=== PATIENT | female | born 1945 | race Caucasian/White ===

== ENCOUNTER 2021-12-29 12:50 | Emergency (ER) | payer OTHER ==
--- OUTSIDE RECORDS SUMMARY | 2021-12-29 12:53 | XMS REPORT | Continuity of Care Document ---
:1945 Author Organization [facility] t Address [address] [place] [address] Care Team Providers Name Role Phone ABDIAZIZ MONROE Primary Care Physician Unavailable SONAM LIGHT Attending Clinician Unavailable SONAM LIGHT Admitting Clinician Unavailable Payers Payer Name Policy Type Policy Number Effective Date Expiration Date S jt [employer] HMO [id number] 2018 POS PPO 00:00:00 Problems This patient has no known problems. Allergies, Adverse Reactions, Alerts Allergy Allergy Status Severity Reaction(s) Onset Inactive Treating Comm ents Source Name Type Date Date Clinician LACTOSE Allergy Active Med Diarrhea 2019-0 [facility] 6-25 00:00: 00 IODINE Allergy Active Med Hives 2019-0 [facility] AND 620 IODIDE 00:00: CONTAINI 00 NG PRODUCTS PENICILL Allergy Active Med Other 2018-0 [facility] INS 6-20 00:00: 00 Medications This patient has no known medications. Procedures This patient has no known procedures. Encounters Start End Encounter Admission Attending Care Care Encounter Source Date/Time Date/Time Type Type Clinicians Facility Department ID 2019-09-05 2019-09-05 Outpatient [facility] [id number] SLE 00:00:00 00:00:00 JOSE Results Test Description Test Time Test Comments Results Result [facility] e Comments MR, ABDOMEN, WITH 2019-09-12 FINAL REPORT PATIENT 18:04:00 ID: [id number] MRI of the abdomen dated September 12, 2019 COMPARISON: January 13, 2019 Comment: Multiplanar T1 and T2-weighted images of the abdomen, postcontrast axial and coronal T1-weighted images of the abdomen were obtained. Liver and spleen are normal in size. No suspicious mass or abnormal enhancement is seen in the liver. A 4 mm cyst is seen in the spleen. 4 mm calcified granuloma is also seen in the spleen. Pancreas is normal in caliber. No enhancing mass is seen in the pancreas. Several cystic lesions as seen throughout the pancreas are stable as compared to the prior study. The largest one measures approximately 1.0 x 1.3 cm in the head/uncinate process of the pancreas. No pancreatic dilatation is noted. Gallbladder is noted visualized. No biliary dilatation is seen. The adrenals and kidneys are unremarkable. A 1.3 cm cyst is seen in the upper pole left kidney. No hydronephrosis is present. No adenopathy or ascites is seen in the abdomen. The visualized small and large bowel are unremarkable. IMPRESSION:1. Stable cystic lesions in the pancreas is suggestive of IPMN.2. Left renal cyst.3. Status post cholecystectomy without biliary dilatation. Signed: Kiran Davidson MDReport Verified Date/Time: 09/12/2019 18:04:45 Reading Location: [address] Body Reading Room -CREATININE 2019-09-12 12:27:00 Test Item Value Reference Range Interpretation Comme [facility] POC-CREATININE (BEAKER) (test 0.8 mg/dL 0.6-1.3 TESTED AT [facility] 6720 code = 1859) [facility] [address] POC-EGFR (BEAKER) (test code = 70 mL/min/1.73M2 1860) TISSUE [id number] 18:27:00Surgical Pathology Report Case: [id number] Authorizing Provider: Jose Light MD Collected: 01/17/2019 1219 Ordering Location: [facility] PERIOPERATIVE Received: 01/17/2019 1329 SERVICES Pathologist: Megan Aguillon MD Specimen: Gallbladder GALLBLADDER, CHOLECYSTECTOMY: - FOCAL INTESTINAL METAPLASIA - CHRONIC CHOLECYSTITIS WITH CHOLELITHIASIS - ONE SUKH IGN REACTIVE LYMPH NODE Signing Pathologist Direct Phone Line: [phone] signed by Megan Aguillon MD on 01/19/2019 at 6:27 [id number] of bile duct without cholangitis or biliary obstruction Gallbladder The specimen consists of an intact gallbladder in a plastic bag in formalinmeasuring 4.5 cm in length with a maximum diameter of 2.5 cm. The specimen oozes a paeiz-gqham-zhaeob bile of normal viscosity on compression. The serosal aspect is smooth and glistening without adhesions. Small calculi are palpated across the wall of the gallbladder. The gallbladder is opened to reveal a thickness of approximately 2 mm. The mucosa is hassan-pink in color without cholesterolosis or other mass lesion. There is a single very dark-green stone, which had been broken in half, which originally measured 1.0 cm in diameter. Sections of the cystic duct margin are submitted in A1, and portions of the fundus wall is A2. TMW/ewPerformed.MR, ABDOMEN, [id number] 16:32:00FINAL REPORT INDICATION:Pancreas mass. COMPARISON: None. TECHNIQUE: MR of theAbdomen WITHOUT and WITH intravenous contrast.MRCP also performed including 3-D reconstructions. FINDINGS:In the head of the pancreas there is a 13 x 10 mm cyst and there is suggestion that is in communication with a minor pancreatic duct that joins the common bile duct draining into the ampulla. The main pancreatic duct drains more proximally into the duodenum. This is pancreatic divisum anatomy. Main pancreatic duct is normal in caliber. There are two 4 mm cysts adjacent to the main pancreatic duct. No solid pancreatic mass. No pancreatic atrophy. There is tumefactive sludge or two small stones de pendent in the gallbladder. There is no biliary ductal dilatation. There is fluid in the C curve of the duodenum and no duodenal or ampullary abnormality is demonstrated. Liver is normal in contour, signal, and size. No liver mass. Hepatic vasculature is patent. Spleen, adrenal glands, and kidneys are unremarkable. IMPRESSION:No pancreatic solid mass. There are pancreatic cysts, the largest in the head of the pancreas measuring 13 x 10 mm and likely arising from a minor pancreatic duct (side branch intraductal papillary mucinous neoplasm). Because these have malignant potential, follow-up MR abdomen without and with intravenous contrast in 6-12 months is recommended. Signed: Alvaro Perryeport Verified Date/Time: 01/13/2019 16:32:06 Reading Location: [facility] Diagnostic Imaging Reading Room -[place] [address] [id number] 13:49:00 Test Item Value Reference Range Interpretation Comments SODIUM (BEAKER) (test code = 381) 134 meq/L 136-145 L POTASSIUM (BEAKER) (test code = 4.2 meq/L 3.5-5.1 379) CHLORIDE (BEAKER) (test code = 382) 102 meq/L 98-107 CO2 (BEAKER) (test code = 355) 26 meq/L 22-29 [id number] 13:49:00 Test Item Value Reference Range Interpretation Comments GLUCOSE RANDOM (BEAKER) (test code = 79 mg/dL 70-105 652) BUN AND [id number] 13:49:00 Test Item Value Reference Range Interpretation Comments BLOOD UREA NITROGEN 9 mg/dL 7-21 (BEAKER) (test code = 354) CREATININE (BEAKER) 0.79 mg/dL 0.57-1.25 (test code = 358) EGFR (BEAKER) (test 71 mL/min/1.73 ESTIMA AZAR GFR IS code = 1092) sq m NOT ACCURATE CREATININE CLEARANCE IN PREDICTING GLOMERULAR FILTRATION RATE . ESTIMATED GFR I S NOT APPLICABLE FOR DIALYSIS PATIEN TS. [id number] 13:21:00 Test Item Value Reference Range Interpretation Comments HEMOGLOBIN (BEAKER) (test code = 12.8 GM/DL 11.2-15.7 410) [id number] 10:48:00 Test Item Value Reference Range Interpretation Comments POC-CREATININE 0.8 mg/dL 0.6-1.3 TESTED AT [facility] MC-KG (BEAKER) (test 0057 [facility] code = 1859) [facility] 7[address] POC-EGFR 70 mL/min/1.73M2 (BEAKER) (test code = 1860)
--- NOTE | 2021-12-29 13:50 | RAD REPORT ---
EXAM DESCRIPTION: RAD - Chest Single View - 12/29/2021 1:40 pm CLINICAL HISTORY: COPD COMPARISON: Two view chest 02/25/2021 TECHNIQUE: AP portable chest image was obtained 12/29/2021 1:40 pm . FINDINGS: Lungs are extensively fibrotic with the pattern not clearly different from comparison. A f ew scattered calcified granulomas are seen. No peripheral consolidation or mass. Superimposed interst itial edema is not suspected the compared to the prior study. Heart and vasculature are normal. No measurable pleural effusion and no pneumothorax. No acute bony abnormality seen. No acute aortic findings suspected. IMPRESSION: COPD pattern accentuated by shallow inspiration. Acute chest finding is not suspected.
[2021-12-29 13:57] LABS: Absolute Lymphocytes (CBC) 1.5 K/uL (0.7-4.9); Hematocrit 36.7 % (36.0-45.0); Lymphocytes % 15.3 % (15.3-44.8); MPV 6.5 fL (7.6-11.3); RBC Red Blood Cell Count 4.15 M/uL (3.86-4.86)
[2021-12-29] MEDS ORDERED: METHYLPREDNISOLONE 125 MG INJ ONE (13:57)
[2021-12-29] MEDS ORDERED: ALBUTEROL 2.5 MG/3 ML NEB SOL ONE (13:57)
[2021-12-29] MEDS ORDERED: IPRATROPIUM BROM 0.5MG/2.5ML ONE (13:58)
[2021-12-29 14:19] LABS: Albumin 2.8 g/dL (3.4-5.0); Bilirubin Total 0.3 mg/dL (0.2-1.0); Potassium 3.9 mmol/L (3.5-5.1); Protein, Total 7.2 g/dL (6.4-8.2); Troponin High Sensitivity 20.6 pg/mL (<58.9)
--- NOTE | 2021-12-29 15:51 | EDPHYS ---
Physician Documentation [facility] Name: Ada Ford Age: 76 yrs Sex: Female : 1945 Arrival Date: 12/29/2021 Time: 12:53 Bed 15 Private MD: ED Physician Juan Jose Rodriguez HPI: 12/29 13:20 This 76 yrs old Female presents to ER via Ambulatory with complaints of sent by dr for en chest xray. 13:20 76-year-old female with history of COPD not on home O2 presents to ED with 1.5 weeks of en worsening shortness of breath with dyspnea exertion. Patient was seen by PCP last week and started on Z-Dilan. She is on day 4 without improvement. She reports increased work of breathing with worsening wheezing and shortness of breath. No fevers, chills. Chronic cough has worsened. She has intermittent sharp stabbing right-sided chest pain radiating to her back without aggravators or relievers. No peripheral edema, orthopnea, palpitations no nausea, vomiting, diarrhea. Historical: - Allergies: 13:11 PENICILLINS; ww - PMHx: 13:11 Hypercholesterolemia; ww 13:14 Chronic obstructive lung disease; ww - PSHx: 13:11 Total abdominal hysterectomy; ww - Immunization history:: Adult Immunizations up to date. - Social history:: Smoking status: Patient reports the use of cigarette tobacco products, smokes one pack cigarettes per day. ROS: 13:20 Constitutional: Negative for fever, chills, and weight loss. en 13:20 Cardiovascular: Positive for Intermittent right-sided stabbing chest pain. 13:20 Respiratory: Positive for Worsening wet cough with yellow sputum, increased wheezing, shortness of breath, dyspnea exertion. 13:20 Abdomen/GI: Negative for abdominal pain, nausea and vomiting. 13:20 Back: Negative for injury or acute deformity, decreased range of motion. 13:20 : Negative for urinary symptoms. 13:20 MS/extremity: Negative for swelling. 13:20 Neuro: Negative for dizziness, numbness, weakness. Exam: 13:20 Constitutional: Elderly appearing female in moderate respiratory distress, cooperative en 13:20 Constitutional: The patient appears alert, awake. 13:20 Eyes: Pupils: equal, round, and reactive to light and accomodation, Extraocular movements: intact throughout, Conjunctiva: normal, no exudate, no injection. 13:20 ENT: Mouth: Oral mucosa: pink and intact, moist, Posterior pharynx: Airway patent. 13:20 Cardiovascular: Rate: normal, Rhythm: regular, Pulses: no pulse deficits are appreciated, Heart sounds: normal, no murmur, no rub, no gallop. 13:20 Respiratory: moderate respiratory distress is noted, Moderate risk. Stress is work of breathing with exertion shallow breaths with accessory muscle use and short of breath with sentences. Poor air movement without rhonchi rales or wheezes. Respiratory rate at 22, increases with exertion. No hypoxia. 13:20 Abdomen/GI: Inspection: abdomen appears normal, Bowel sounds: normal, in all quadrants, Palpation: abdomen is soft and non-tender, in all quadrants. 13:20 Back: CVA tenderness, is absent. 13:20 Musculoskeletal/extremity: ROM: intact in all extremities, full active range of motion. 13:20 Skin: no rash present. 13:20 Neuro: Orientation: appropriate for stated age, no acute changes, to person, place \\T\\ time. 13:20 Psych: Behavior/mood is pleasant, cooperative, Affect is calm. Vital Signs: 13:09 BP 130 / 63; Pulse 86; Resp 22; Temp 98.1; Pulse Ox 95% ; Weight 52.62 kg; Height 5 ft. ww 4 in. (162.56 cm); Pain 0/10; 14:25 BP 139 / 96; Pulse 94; Resp 17; Pulse Ox 98% on R/A; tw2 15:29 BP 98 / 46; Pulse 102; Resp 20; Pulse Ox 97% on 2 lpm NC; tw2 13:09 Body Mass Index 19.91 (52.62 kg, 162.56 cm) ww MDM: 13:20 Differential diagnosis: viral Infection, bacterial infection, URI, bronchitis, en pneumonia COPD exacerbation, CHF. Data reviewed: vital signs, nurses notes, old medical records, and as a result, I will Will check imaging and labs. Will give duo nebs and Solu-Medrol for COPD exacerbation.. 14:26 ED course: Patient reports feeling a little bit better. No significant improvement in en air movement. No rhonchi rales or wheezes. Breathing treatment ongoing. Will reevaluate.. 14:37 Patient medically screened. en 15:22 ED course: Lungs much improved with good air. Mild faint end expiratory wheezes with en prolonged expiratory phase. Pulse ox 98% on 2 L nasal cannula. Anticipate DC home with nebulizer albuterol and steroids for COPD exacerbation. Pending COVID test.. 15:44 ED course: Pt feels better. Lungs Clear. COVID negative. Patient with an elevated BNP, en but no clinical exam findings consistent with volume overload and chest x-ray without evidence of pulmonary edema or pleural effusions. Patient is not in CHF. Will d/c home with Nebulizer machine, albuterol nebs q4h, and prednisone. ER return precautions reviewed. 12/29 13:20 Order name: CBC with Diff; Complete Time: 14:01 en 12/29 13:20 Order name: CMP; Complete Time: 14:25 en 12/29 13:20 Order name: Troponin High Sensitivity; Complete Time: 14:25 en 12/29 13:20 Order name: CXR XRAY; Complete Time: 14:01 en 12/29 13:20 Order name: COVID-19 SARS RT PCR (Document "Date of Onset" if Symptomatic); Complete en Time: 15:44 12/29 13:20 Order name: BNP; Complete Time: 14:25 en 12/29 13:20 Order name: Saline Lock; Complete Time: 13:43 en Administered Medications: 13:57 Drug: Albuterol - atroVENT (ipratropium) (3:1) (2.5 mg - 0.5 mg) 6 ml Route: Nebulizer; tw2 15:01 Follow up: Response: No adverse reaction tw2 13:57 Drug: SOLU-Medrol (methylPrednisoLONE) 125 mg Route: IVP; Site: right forearm; tw2 15:01 Follow up: Response: No adverse reaction tw2 15:22 CANCELLED (change dosee): Albuterol 2.5 mg Inhalation every 20 minutes x3 en 15:28 Not Given (Physician Discretion; provider diss): Albuterol 2.5 mg Inhalation once tw2 Disposition: 17:41 Co-signature as Attending Physician, Juan Jose Rodriguez MD. rn Disposition Summary: 12/29/21 15:50 Discharge Ordered Location: Home en Problem: an acute exacerbation en Symptoms: have improved en Condition: Stable en Diagnosis - COPD/ Chronic obstructive pulmonary disease with (acute) exacerbation en Followup: en - With: Justice Adame MD - When: 1 - 2 days - Reason: Worsening of condition Discharge Instructions: - Discharge Summary Sheet en - Chronic Bronchitis, Adult en - How to Use a Nebulizer, Adult en Forms: - Medication Reconciliation Form en - Thank You Letter en - Antibiotic Education en - Prescription Opioid Use en Prescriptions: - Albuterol Sulfate 2.5 mg /3 mL (0.083 %) Inhalation Solution for Nebulization - inhale 1 unit by NEBULIZATION route every 8 hours As needed; 1 box; Refills: 0, en Product Selection Permitted - Prednisone 20 mg Oral Tablet - take 2 tablets by ORAL route once daily for 5 days; 10 tablet; Refills: 0, en Product Selection Permitted Signatures: Dispatcher [employer] EDMS Juan Jose Rodriguez MD MD rn Laverne Helton RN RN tw2 Ivette Milner RN RN Yahaira White PA PA en Corrections: (The following items were deleted from the chart) 15:22 15:22 Albuterol 2.5 mg Inhalation every 20 minutes x3 ordered. en en 16:05 15:44 ED course: Pt feels better. Lungs Clear. COVID negative. Will d/c home with en Nebulizer machine, albuterol nebs q4h, and prednisone. ER return precautions reviewed. en
--- NOTE | 2021-12-29 15:51 | ER ---
Nurse's Notes [facility] Name: Ada Ford Age: 76 yrs Sex: Female : 1945 Arrival Date: 12/29/2021 Time: 12:53 Bed 15 Private MD: Diagnosis: COPD/ Chronic obstructive pulmonary disease with (acute) exacerbation Presentation: 12/29 13:09 Chief complaint:. Chief complaint: Patient states: Been sick for 1 week and treated ww with a z-filemon and not getting better. Complaining of shortness of breath and sharp pain in her right side of chest that radiates to the back. She has been tested 4 times for COVID this week and all negative. Dr. Adame recommended patient come to the emergency room for further evaluation. Patients son states that her pulse ox has been running around 91% at home. Coronavirus screen: Client denies travel out of the [place] in the last 14 days. Ebola Screen: Patient denies travel to an Ebola-affected area in the 21 days before illness onset. Initial Sepsis Screen: Does the patient meet any 2 criteria? No. Patient's initial sepsis screen is negative. Does the patient have a suspected source of infection? No. Patient's initial sepsis screen is negative. Risk Assessment: Do you want to hurt yourself or someone else? Patient reports no desire to harm self or others. Onset of symptoms is unknown. 13:09 Method Of Arrival: Ambulatory ww 13:09 Acuity: ABHISHEK 3 ww Triage Assessment: 13:11 General: Appears uncomfortable, Behavior is cooperative. Pain: Complains of pain in ww chest. Neuro: Level of Consciousness is awake, alert, obeys commands, Oriented to person, place, time, situation. Cardiovascular: Patient's skin is warm and dry. Respiratory: Airway is patent Respiratory effort is labored. Historical: - Allergies: 13:11 PENICILLINS; ww - PMHx: 13:11 Hypercholesterolemia; ww 13:14 Chronic obstructive lung disease; ww - PSHx: 13:11 Total abdominal hysterectomy; ww - Immunization history:: Adult Immunizations up to date. - Social history:: Smoking status: Patient reports the use of cigarette tobacco products, smokes one pack cigarettes per day. Screenin:13 Abuse screen: Denies threats or abuse. Denies injuries from another. Nutritional ww screening: No deficits noted. Tuberculosis screening: No symptoms or risk factors identified. Fall Risk None identified. Assessment: 14:25 Reassessment: Patient appears in no apparent distress at this time. Patient and/or tw2 family updated on plan of care and expected duration. Pain level reassessed. 15:30 Reassessment: Patient appears in no apparent distress at this time. Patient and/or tw2 family updated on plan of care and expected duration. Pain level reassessed. Patient states symptoms have improved. 16:11 Reassessment: Patient appears in no apparent distress at this time. Patient and/or tw2 family updated on plan of care and expected duration. Pain level reassessed. Patient states feeling better. Vital Signs: 13:09 BP 130 / 63; Pulse 86; Resp 22; Temp 98.1; Pulse Ox 95% ; Weight 52.62 kg; Height 5 ft. ww 4 in. (162.56 cm); Pain 0/10; 14:25 BP 139 / 96; Pulse 94; Resp 17; Pulse Ox 98% on R/A; tw2 15:29 BP 98 / 46; Pulse 102; Resp 20; Pulse Ox 97% on 2 lpm NC; tw2 13:09 Body Mass Index 19.91 (52.62 kg, 162.56 cm) ww ED Course: 12:53 Patient arrived in ED. as 13:11 Triage completed. ww 13:11 Arm band placed on. ww 13:16 Bed in low position. Call light in reach. Pulse ox on. NIBP on. tw2 13:18 Yahaira Abdi PA is PHCP. en 13:18 Juan Jose Rodriguez MD is Attending Physician. en 13:25 Laverne Helton RN is Primary Nurse. tw2 13:42 CXR XRAY In Process Unspecified. EDMS 13:43 COVID-19 SARS RT PCR (Document "Date of Onset" if Symptomatic) Sent. ld1 13:44 Inserted saline lock: 20 gauge in right wrist, using aseptic technique. ld1 15:49 Justice Adame MD is Referral Physician. en 16:10 No provider procedures requiring assistance completed. IV discontinued, intact, tw2 bleeding controlled, No redness/swelling at site. Pressure dressing applied. Administered Medications: 13:57 Drug: Albuterol - atroVENT (ipratropium) (3:1) (2.5 mg - 0.5 mg) 6 ml Route: Nebulizer; tw2 15:01 Follow up: Response: No adverse reaction tw2 13:57 Drug: SOLU-Medrol (methylPrednisoLONE) 125 mg Route: IVP; Site: right forearm; tw2 15:01 Follow up: Response: No adverse reaction tw2 15:22 CANCELLED (change dosee): Albuterol 2.5 mg Inhalation every 20 minutes x3 en 15:28 Not Given (Physician Discretion; provider diss): Albuterol 2.5 mg Inhalation once tw2 Medication: 14:35 VIS not applicable for this client. tw2 Outcome: 15:50 Discharge ordered by MD. en 16:10 Discharged to home via wheelchair, with family. tw2 16:10 Condition: stable 16:10 Discharge instructions given to patient, family, Instructed on discharge instructions, follow up and referral plans. medication usage, Demonstrated understanding of instructions, follow-up care, medications, Prescriptions given X 3. 16:11 Patient left the ED. tw2 Signatures: Dispatcher [employer] EDMS Jaclyn Evans Tara RN RN tw2 Ary León RN RN ld1 Ivette Milner RN RN ww Yahaira Abdi PA PA en Corrections: (The following items were deleted from the chart) 13:15 13:09 Chief complaint: Patient states: Been sick for 1 week and treated with a z-filemon ww and not getting better. She has been tested 4 times for COVID this week and all negative. Dr. Adame recommended patient come to the emergency room for further evaluation. Patients son states that her pulse ox has been running around 91% at home. ww
[2021-12-29 16:45] VITALS: TEMP 98.1
[2021-12-29 16:48] VITALS: BP 98/46; O2SAT 97
== END 2021-12-29 16:11 | disposition home or self-care (01) ==
LOC: ER 12:50
DX: J44.1 Chronic obstructive pulmonary disease with (acute) exacerbation (principal); Z20.822 Contact with and (suspected) exposure to COVID-19; F17.210 Nicotine dependence, cigarettes, uncomplicated; Z88.0 Allergy status to penicillin
CPT/HCPCS: 85025; 36415; 84484; 80053; 83880; 71045; 94640; 96374; 99284; U0003; J2930

== ENCOUNTER 2022-02-24 12:29 | Inpatient (IN) | payer OTHER ==
--- OUTSIDE RECORDS SUMMARY | 2022-02-24 12:31 | XMS REPORT | Continuity of Care Document ---
:1945 Author Organization [facility] t Address [address] [place] [address] Care Team Providers Name Role Phone MYNOR MONROE Primary Care Physician Unavailable FORTINO LIGHT Attending Clinician Unavailable FORTINO LIGHT Admitting Clinician Unavailable Payers Payer Name Policy Type Policy Number Effective Date Expiration Date S jt [employer] MEDICARE HMO [id number] 2018 POS PPO 00:00:00 Problems This patient has no known problems. Allergies, Adverse Reactions, Alerts Allergy Allergy Status Severity Reaction(s) Onset Inactive Treating Comm ents Source Name Type Date Date Clinician LACTOSE Allergy Active Med Di[facility] 2019-[address] [facility] IODINE Allergy Active Med Hives 2019-[address] [facility] 00 [facility] NG PRODUCTS PENICILL Allergy Active Med Other 2019-[address] [facility] Medications This patient has no known medications. Procedures This patient has no known procedures. Encounters Start End Encounter Admission Attending Care Care Encounter Source Date/Time Date/Time Type Type Clinicians Facility Department ID 2019-09-05 2019-09-05 [facility] [id number] [facility] 00:00:00 00:00:00 FORTINO Results Test Description Test Time Test Comments Results Result [facility] e Comments MR, ABDOMEN, WITH 2019-09-12 FINAL REPORT PATIENT 18:04:00 ID: [id number] MRI of the abdomen dated September 12, [...] MDReport Verified Date/Time: 09/12/2019 18:04:45 Reading Location: [facility] Body Reading Room -CREATININE 2019-09-12 12:27:00 Test Item Value Reference Range Interpretation Comme [facility] POC-CREATININE (BEAKER) (test 0.8 mg/dL 0.6-1.3 TESTED AT [facility] 6720 code = 1859) [facility] [address] POC-EGFR (BEAKER) (test code = 70 mL/min/1.73M2 1860) TISSUE [id number] 18:27:00Surgical Pathology Report Case: [id number] Authorizing Provider: Fortino Light MD Collected: 01/17/2019 1219 Ordering Location: [facility] PERIOPERATIVE Received: 01/17/2019 1329 SERVICES Pathologist: Megan Aguillon MD Specimen: Gallbladder GALLBLADDER, CHOLECYSTECTOMY: - FOCAL INTESTINAL METAPLASIA- CHRONIC CHOLECYSTITIS WITH CHOLELITHIASIS - ONE BENIGN REACTIVE LYMPH NODE Signing Pathologist Direct Phone Line: [phone] signed by Megan Aguillon MD on 01/19/2019 at 6:27 [id number] of bile duct without cholangitis or biliary obstruction Gallbladder The specimen consists of an intact gallbladder in a plastic bag in formalin measuring 4.5 cm in length with a maximum diameter of2.5 cm. The specimen oozes a dwscz-lerzi-mawylc bile of normal viscosity on compression. The serosalaspect is smooth and glistening without adhesions. Small calculi are palpated across the wall of thegallbladder. The gallbladder is opened to reveal a thickness of approximately 2 mm. The mucosa is hassan-pink in color without cholesterolosis or other mass lesion. There is a single very dark-green stone, which had been broken in half, which originally measured 1.0 cm in diameter. Sections of the cysticduct margin are submitted in A1, and portions of the fundus wall is A2. TMW/ewPerformed.MR, ABDOMEN, [id number] 16:32:00FINAL REPORT INDICATION:Pancreas mass. COMPARISON: None. TECHNIQUE: MR of the Abdomen WITHOUT and WITH intravenous contrast.MRCP also performed including 3-D reconstructions. FINDINGS:In the head of the pancreas there is a 13 x 10 mm cyst and there is suggestion that is in communication with a minor pancreatic duct that joins the common bile duct draining into the ampulla. The main pancreatic duct drains more proximally into the duodenum. This is pancreatic divisum anatomy. Mainpancreatic duct is normal in caliber. There are two 4 mm cysts adjacent to the main pancreatic duct.No solid pancreatic mass. No pancreatic atrophy. There is tumefactive sludge or two small stones dependent in the gallbladder. There is no biliary ductal dilatation. There is fluid in the C curve of the duodenum and no duodenal or ampullary abnormality is demonstrated. Liver is normal in contour, signal, and size. No liver mass. Hepatic vasculature is patent. Spleen, adrenal glands, and kidneys are un remarkable. IMPRESSION:No pancreatic solid mass. There are pancreatic cysts, the largest in the headof the pancreas measuring 13 x 10 mm and likely arising from a minor pancreatic duct (side branch intraductal papillary mucinous neoplasm). Because these have malignant potential, follow-up MR abdomen without and with intravenous contrast in 6-12 months is recommended. Signed: Bonnie Perry MDReport Verified Date/Time: 01/13/2019 16:32:06 Reading Location: [facility] Diagnostic Imaging Reading Room - [place] [address] 1120 [id number] 13:49:00 Test Item Value Reference Range Interpretation Comments SODIUM (BEAKER) (test code = 381) 134 meq/L 136-145 L POTASSIUM (BEAKER) (test code = 4.2 meq/L 3.5-5.1 379) CHLORIDE (BEAKER) (test code = 382) 102 meq/L 98-107 CO2 (BEAKER) (test code = 355) 26 meq/L 22-29 [id number] 13:49:00 Test Item Value Reference Range Interpretation Comments GLUCOSE RANDOM (BEAKER) (test code = 79 mg/dL 70-105 652) BUN AND [id number] 13:49:00 Test Item Value Reference Range Interpretation Comments BLOOD UREA NITROGEN 9 mg/dL - (BEAKER) (test code = 354) CREATININE (BEAKER) 0.79 mg/dL 0.57-1.25 (test code = 358) EGFR (BEAKER) (test 71 mL/min/1.73 ESTIMA AZAR GFR IS code = 1092) sq m NOT ACCURATE CREATININE CLEARANCE IN PREDICTING GLOMERULAR FILTRATION RATE . ESTIMATED GFR I S NOT APPLICABLE FOR DIALYSIS PATIEN TS. [id number] 13:21:00 Test Item Value Reference Range Interpretation Comments HEMOGLOBIN (BEAKER) (test code = 12.8 GM/DL 11.2-15.7 410) [id number] 10:48:00 Test Item Value Reference Range Interpretation Comments POC-CREATININE 0.8 mg/dL 0.6-1.[address] [facility] ([facility]ER[facility] (test [address] [facility] code = 1859) [facility] 7703 0 POC-EGFR 70 mL/min/1.73M2 (BEAKER) (test code = 1860)
[2022-02-24] MEDS ORDERED: METHYLPREDNISOLONE 125 MG INJ ONE (13:22)
[2022-02-24] MEDS ORDERED: CEFTRIAXONE 1000 MG/VIAL ONE (13:22)
[2022-02-24] MEDS ORDERED: IPRATROPIUM BROM 0.5MG/2.5ML ONE (13:22)
[2022-02-24] MEDS ORDERED: LEVALBUTEROL 1.25 MG/3 ML NEB ONE (13:22)
[2022-02-24] MEDS ORDERED: NA CHLORIDE 0.9% 1,000 ML ONE (13:22)
--- NOTE | 2022-02-24 13:35 | RAD REPORT ---
EXAM DESCRIPTION: RAD - Chest Single View - 02/24/2022 1:28 pm CLINICAL HISTORY: Cough Chest pain. COMPARISON: Chest Single View dated 12/29/2021; Chest Pa And Lat (2 Views) dated 02/25/2021; Chest Pa An d Lat (2 Views) dated 01/01/2021; Chest Pa And Lat (2 Views) dated 11/08/2018 FINDINGS: Portable technique limits examination quality. The lungs are emphysematous but grossly clear. The heart is normal in size. No displaced fractures. IMPRESSION: No acute intrathoracic process suspected. COPD.
[2022-02-24 13:58] LABS: Absolute Lymphocytes (CBC) 1.3 K/uL (0.7-4.9); Hematocrit 37.4 % (36.0-45.0); Lymphocytes % 16.7 % (15.3-44.8); MCV 86.5 fL (80-100); MPV 7.5 fL (7.6-11.3); Protime INR 1.03; RBC Red Blood Cell Count 4.32 M/uL (3.86-4.86)
[2022-02-24 14:15] LABS: Albumin 3.4 g/dL (3.4-5.0); Bilirubin Direct 0.2 mg/dL (0-0.2); Bilirubin Total 0.7 mg/dL (0.2-1.0); Magnesium 1.8 mg/dL (1.8-2.4); Potassium 3.9 mmol/L (3.5-5.1); Protein, Total 6.7 g/dL (6.4-8.2); Thyroid Stimulating Hormone 0.666 uIU/mL (0.360-3.740); Troponin High Sensitivity 9.6 pg/mL (<58.9)
[2022-02-24] MEDS ORDERED: AZITHROMYCIN 250 MG TAB ONE (14:20)
[2022-02-24] MEDS ORDERED: DIGOXIN 0.25 MG/ML AMP ONE (14:21)
[2022-02-24] MEDS ORDERED: METOPROLOL TARTRATE 5 MG/5 ML INJ IV ONE (14:21)
[2022-02-24] MEDS ORDERED: FAMOTIDINE 20 MG/2 ML VIAL IV ONE (14:21)
[2022-02-24] MEDS ORDERED: ENOXAPARIN 60 MG/0.6 ML SQ ONE (14:22)
[2022-02-24] MEDS ORDERED: METOPROLOL TAR 25 MG TAB ONE ×2 (14:23→21:42)
[2022-02-24 14:29] LABS: SARS-CoV-2 Antigen Rapid Res Negative (Negative)
[2022-02-24] MEDS ORDERED: ONDANSETRON 4 MG/2 ML VIAL IV PRN (15:40)
--- NOTE | 2022-02-24 15:52 | P.HP ---
Certification for Inpatient Patient admitted to: Inpatient With expected LOS: >2 Midnights Practitioner: I am a practitioner with admitting privileges, knowledge of patient current condition, hospital course, and medical plan of care. Services: Services provided to patient in accordance with Admission requirements found in Title 42 Section 412.3 of the Code of Federal Regulations Patient History Date of Service: 02/24/22 Primary Care Provider: Dr. Adame Reason for admission: afib rvr, new onset, COPD exacerbation History of Present Illness: 76yo F, PMH: COPD, HLD Presents to ED due to ~3-4 days of progressively worsening shortness of breath and bilateral feet swelling. Associated with significant dyspnea on exertion, unable to ambulate to bathroom from her bed without significant shortness of breath. Seen by PCP today and noted to have irregular rhythm and tachycardic, so was sent to ED for further evaluation. In the ED, patient was noted to be in afib with RVR, heart rate up to 150-160s. Improved with metoprolol and digoxin. Patient denies any prior afib, and reports she did have rheumatic fever as a child. She does not see a sales review clerk and has otherwise been fairly healthy. Denies any recent illness, no fever/chills. She has been using her albuterol rescue inhaler more often lately due to shortness of breath and wheezing. She wa s maintained on Trelegy, however she ran out a few months ago. She is unsure why it was stopped. Patient admitted for further management. Allergies Penicillins Allergy (Verified 07/09/16 13:00) Rash mycins Allergy (Uncoded 07/09/16 13:00) Hives/Rash Home Medications: Aspirin [Aspirin EC 81 MG] 81 mg PO DAILY 05/21/16 Atorvastatin Calcium [Lipitor] 40 mg PO BEDTIME 05/21/16 Losartan Potassium [Cozaar*] 50 mg PO DAILY AFTER SUPPER 05/21/16 Multivitamin [Multivitamins] 1 each PO DAILY 05/21/16 Vit A/Vit C/Vit E/Zinc/Copper [Icaps Areds Softgel] 1 each PO DAILY 05/21/16 Brimonidine Tartrate [Alphagan P] 1 drop OP BID 07/09/16 Cholecalciferol (Vitamin D3) [Vitamin D3] 1,000 unit PO DAILY 07/09/16 Dorzolamide HCl/Timolol Maleat [Dorzolamide-Timolol Eye Drops] 1 drop OP BID 07/09/16 Flaxseed Oil 1,000 mg PO 07/09/16 Magnesium Oxide [Mag 0X*] 400 mg PO DAILY 07/09/16 - Past Medical/Surgical History -: COPD -: HLD -: total abdominal hysterectomy - Family History Family History: Reviewed- Non-Contributory - Social History Smoking Status: Current every day smoker Alcohol use: Yes Place of Residence: Home Review of Systems 10-point ROS is otherwise unremarkable Physical Examination - Physical Exam General: Alert, Oriented x3, Mild distress HEENT: EOMI, Sclerae nonicteric Neck: No LAD Respiratory: Diminished, Crackles/rales, Expiratory wheezes Cardiovascular: Edema (1+ b/l to just above ankle), Irregular heart rate/rhythm Gastrointestinal: Soft and benign, Non-distended, No tenderness Musculoskeletal: No contractures Integumentary: No rashes, No significant lesion Neurological: Normal speech, Normal affect - Studies Laboratory Data (last 24 hrs) 02/24/22 13:45: PT 11.3, INR 1.03 02/24/22 13:45: WBC 7.8, Hgb 12.2, Hct 37.4, Plt Count 190 02/24/22 13:45: Sodium 138, Potassium 3.9, BUN 4 L, Creatinine 0.69, Glucose 98, Magnesium 1.8, Total Bilirubin 0.7, AST 19, ALT 20, Alkaline Phosphatase 102 Assessment and Plan - Advance Directives Does patient have a Living Will: Yes Does patient have a Durable POA for Healthcare: Yes Physician Review Additional Text: Problem List afib with RVR, new onset acute hypoxemic respiratory failure secondary to afib and COPD exacerbation acute on chronic COPD exacerbation HLD given metoprolol and digoxin in ED continue with PO metoprolol, IV as needed, if BP tolerates Cardiology consulted echo ordered start xarelto CXR without evidence of infection, no pleural effusion/edema suspect COPD Exacerbation pulmonology consulted, patient has been off trelegy for a few months prednisone 20mg BID started nebs monitor on telemetry VTE: xarelto Code: full Dispo: home, ~1-2 days Time Spent Managing Pts Care (In Minutes): 65
[2022-02-24 16:41] VITALS: BMI 22.3
[2022-02-24] MEDS ORDERED: RIVAROXABAN 20 MG TABLET PO SCH (17:00)
[2022-02-24] MEDS ORDERED: RIVAROXABAN 20 MG TABLET PO ONE (17:25)
[2022-02-24] MEDS ORDERED: METOPROLOL TAR 25 MG TAB PO SCH (18:00)
[2022-02-24] MEDS ORDERED: ALBUTEROL 2.5 MG/3 ML NEB SOL NEB PRN (20:00)
[2022-02-24] MEDS ORDERED: ALBUTEROL 2.5 MG/3 ML NEB SOL NEB SCH (20:00)
[2022-02-24] MEDS: DULERA 200/5 (MOMETASONE/FORMOTEROL) INHALER IH SCH (21:00)
[2022-02-24] MEDS: predniSONE 20 MG TAB PO SCH (21:00)
[2022-02-24] MEDS: METOPROLOL TAR 25 MG TAB PO SCH (21:30)
[2022-02-24] MEDS ORDERED: predniSONE 20 MG TAB ONE (21:42)
[2022-02-25] MEDS: METOPROLOL TAR 25 MG TAB PO SCH (05:05)
[2022-02-25 05:53] LABS: Albumin 2.8 g/dL (3.4-5.0); Bilirubin Total 0.3 mg/dL (0.2-1.0); Magnesium 1.8 mg/dL (1.8-2.4); Potassium 4.6 mmol/L (3.5-5.1); Protein, Total 5.8 g/dL (6.4-8.2)
[2022-02-25 05:58] VITALS: O2SAT 98
[2022-02-25 06:10] LABS: Absolute Lymphocytes (CBC) 0.6 K/uL (0.7-4.9); Lymphocytes % 20.2 % (15.3-44.8); MCV 86.6 fL (80-100); MPV 7.7 fL (7.6-11.3); RBC Red Blood Cell Count 3.92 M/uL (3.86-4.86)
--- NOTE | 2022-02-25 06:12 | P.PN ---
Date of Service: 02/25/22
--- NOTE | 2022-02-25 07:22 | EKG ---
Test Date: 2022-02-24 Test Time: 13:24:57 Wood Heel Attacher: TONY MEASUREMENT RESULTS: Intervals: Rate: 160 NM: 186 QRSD: 72 QT: 154 QTc: 251 [place]: P: 106 NM: 186 QRS: 96 T: 35 INTERPRETIVE STATEMENTS: Suspect arm lead reversal, interpretation assumes no reversal Sinus tachycardia with fusion complexes Rightward axis ST elevation, consider inferolateral injury or acute infarct ACUTE HI Abnormal ECG Compared to ECG 05/09/2002 15:54:00 Fusion complex(es) now present Right-axis deviation now present ST (T wave) deviation now present Myocardial infarct finding now present Sinus rhythm no longer present Electronically Signed On 02-25-22 07:19:26 CDT by Castillo Alarcon
[2022-02-25] MEDS: predniSONE 20 MG TAB PO SCH (08:17)
[2022-02-25] MEDS: DULERA 200/5 (MOMETASONE/FORMOTEROL) INHALER IH SCH (08:18)
--- NOTE | 2022-02-25 10:13 | EDPHYS ---
Physician Documentation [facility] Name: Ada Ford Age: 76 yrs Sex: Female : 1945 Arrival Date: 02/24/2022 Time: 12:30 Bed 7 Private MD: Justice Adame B ED Physician Aris Rosales HPI: 02/24 14:16 This 76 yrs old Female presents to ER via Ambulatory with complaints of High li Pulse Rate. 14:16 The patient has shortness of breath at rest, with light activity. Onset: The li symptoms/episode began/occurred 2 day(s) ago. Duration: The symptoms are continuous, and are steadily getting worse. The patient's shortness of breath is aggravated by coughing, supine position, talking, walking, is alleviated by elevating head, nebulizer treatment, rest, sitting up, application of supplemental oxygen. The patient presents with a history of irregular heart beat, heart racing. Context: The symptoms occur without known cause. Onset: The symptoms/episode began/occurred yesterday. Modifying factors: The symptoms are aggravated by anxiety, strenuous activity, The symptoms are alleviated by nothing. Associated signs and symptoms: Pertinent positives: non-productive cough. Severity of symptoms: At their worst the symptoms were moderate in the emergency department the symptoms are unchanged. Historical: - Allergies: 12:38 PENICILLINS; ld1 - PMHx: 12:38 Chronic obstructive lung disease; Hypercholesterolemia; ld1 - PSHx: 12:38 Total abdominal hysterectomy; ld1 - Immunization history:: Adult Immunizations up to date. - Social history:: Smoking status: Patient reports the use of cigarette tobacco products, smokes two packs cigarettes per day. Patient uses alcohol, on a daily basis. - Family history:: not pertinent. ROS: 14:16 Constitutional: Negative for fever, chills, and weight loss, Eyes: Negative for injury, li pain, redness, and discharge, ENT: Negative for injury, pain, and discharge, Neck: Negative for injury, pain, and swelling, Abdomen/GI: Negative for abdominal pain, nausea, vomiting, diarrhea, and constipation, Back: Negative for injury and pain, : Negative for injury, bleeding, discharge, and swelling, Skin: Negative for injury, rash, and discoloration, Neuro: Negative for headache, weakness, numbness, tingling, and seizure, Psych: Negative for depression, anxiety, suicide ideation, homicidal ideation, and hallucinations, Allergy/Immunology: Negative for hives, rash, and allergies, Endocrine: Negative for neck swelling, polydipsia, polyuria, polyphagia, and marked weight changes, Hematologic/Lymphatic: Negative for swollen nodes, abnormal bleeding, and unusual bruising. 14:16 Cardiovascular: Positive for chest pain, palpitations. 14:16 Cardiovascular: Positive for 14:16 Respiratory: Positive for cough, shortness of breath, wheezing, expiratory. 14:16 MS/extremity: Positive for swelling. Exam: 14:16 Constitutional: This is a well developed, well nourished patient who is awake, alert, li and in no acute distress. Head/Face: Normocephalic, atraumatic. Eyes: Pupils equal round and reactive to light, extra-ocular motions intact. Lids and lashes normal. Conjunctiva and sclera are non-icteric and not injected. Cornea within normal limits. Periorbital areas with no swelling, redness, or edema. ENT: Nares patent. No nasal discharge, no septal abnormalities noted. Tympanic membranes are normal and external auditory canals are clear. Oropharynx with no redness, swelling, or masses, exudates, or evidence of obstruction, uvula midline. Mucous membranes moist. Neck: Trachea midline, no thyromegaly or masses palpated, and no cervical lymphadenopathy. Supple, full range of motion without nuchal rigidity, or vertebral point tenderness. No Meningismus. Chest/axilla: Normal chest wall appearance and motion. Nontender with no deformity. No lesions are appreciated. Abdomen/GI: Soft, non-tender, with normal bowel sounds. No distension or tympany. No guarding or rebound. No evidence of tenderness throughout. Back: No spinal tenderness. No costovertebral tenderness. Full range of motion. Skin: Warm, dry with normal turgor. Normal color with no rashes, no lesions, and no evidence of cellulitis. MS/ Extremity: Pulses equal, no cyanosis. Neurovascular intact. Full, normal range of motion. Neuro: Awake and alert, GCS 15, oriented to person, place, time, and situation. Cranial nerves II-XII grossly intact. Motor strength 5/5 in all extremities. Sensory grossly intact. Cerebellar exam normal. Normal gait. Psych: Awake, alert, with orientation to person, place and time. Behavior, mood, and affect are within normal limits. 14:16 Cardiovascular: Rate: tachycardic, Rhythm: irregularly irregular, Pulses: Pulses are 4+ in bilateral radial, brachial, femoral, popliteal, posterior tibial and and dorsalis pedis arteries.. Heart sounds: normal, Edema: 1+ edema to level of left midcalf and right midcalf, JVD: is noted bilaterally, to 2 cm. 14:16 ECG was reviewed by the Attending Physician. Vital Signs: 12:34 BP 121 / 79 LA Sitting (auto/reg); Pulse 141; Resp 40; Temp 98.5; Pulse Ox 95% on R/A; ld1 Weight 58.97 kg; Height 5 ft. 4 in. (162.56 cm); Pain 7/10; 13:30 BP 131 / 67; Pulse 124; Resp 22; Pulse Ox 99% on 3 lpm NC; tw2 14:07 BP 158 / 79; Pulse 126; Resp 24; Pulse Ox 98% on 3 lpm NC; tw2 14:35 BP 141 / 95; Pulse 67; Resp 25; Pulse Ox 100% on Nebulizer Mask; tw2 14:59 BP 118 / 97; Pulse 78; Resp 25; Pulse Ox 100% on Nebulizer Mask; tw2 15:30 BP 139 / 62; Pulse 70; Resp 22; Pulse Ox 100% on 2 lpm NC; tw2 16:09 BP 151 / 74; Pulse 76; Resp 21; Pulse Ox 100% on 2 lpm NC; tw2 12:34 Body Mass Index 22.32 (58.97 kg, 162.56 cm) ld1 MDM: 13:05 Patient medically screened. li 14:20 Differential diagnosis: Anemia Anxiety Reaction Bronchitis CHF exacerbation, arrythmia, li Myocardial Infarction pneumonia, Unstable Angina. Antibiotic administration: Rocephin and Zithromax given. The patient's Wells Deep Vein Thrombosis Score was calculated as follows: Total Score: 0-2 Pts- Low Risk. The patient's pulmonary embolism risk score was calculated as follows: Total Score: 0-2 points. This patient was found to be at low risk for a pulmonary embolism by using the Well's assessment criteria. Immunization status: Pneumococcal vaccine: Not up to date Influenza vaccine: Data reviewed: vital signs, nurses notes, lab test result(s), EKG, radiologic studies, CT scan. Data interpreted: pre press proofer: rate is 141 beats/min, rhythm is atrial fibrillation, Pulse oximetry: on room air is 95 %. Test interpretation: by ED physician or midlevel provider: ECG, plain radiologic studies. Counseling: I had a detailed discussion with the patient and/or guardian regarding: the historical points, exam findings, and any diagnostic results supporting the discharge/admit diagnosis, lab results, radiology results, the need for further work-up and treatment in the hospital. 02/24 13:09 Order name: Basic Metabolic Panel; Complete Time: 14:34 li 02/24 13:09 Order name: CBC with Diff; Complete Time: 14:34 [facility] 02/24 13:09 Order name: LFT's; Complete Time: 14:34 [facility] 02/24 13:09 Order name: Magnesium; Complete Time: 14:34 [facility] 02/24 13:09 Order name: NT PRO-BNP; Complete Time: 14:34 [facility] 02/24 13:09 Order name: PT-INR; Complete Time: 14:34 [facility] 02/24 13:09 Order name: Troponin HS; Complete Time: 14:34 li 02/24 13:09 Order name: TSH; Complete Time: 14:34 li 02/24 13:09 Order name: Blood Culture Adult (2) [facility] 02/24 13:09 Order name: Lactate; Complete Time: 14:34 [facility] 02/24 13:09 Order name: SARS RAPID; Complete Time: 14:34 [facility] 02/24 13:40 Order name: Procalcitonin; Complete Time: 18:04 [facility] 02/24 15:43 Order name: CBC with Automated Diff [facility] 02/24 15:43 Order name: CBC with Automated Diff [facility] 02/24 13:09 Order name: XRAY Chest (1 view); Complete Time: 14:34 [facility] 02/24 14:07 Order name: Echo w/ Doppler [facility] 02/24 15:43 Order name: Comprehensive Metabolic Panel [facility] 02/24 15:43 Order name: Comprehensive Metabolic Panel [facility] 02/24 15:43 Order name: Lipid Profile [facility] 02/24 15:43 Order name: Lipid Profile [facility] 02/24 15:43 Order name: Magnesium [facility] 02/24 15:43 Order name: Magnesium [facility] 02/24 15:43 Order name: T4 Free [facility] 02/24 15:44 Order name: T4 Free [facility] 02/24 13:09 Order name: EKG; Complete Time: 13:12 [facility] 02/24 13:09 Order name: Cardiac monitoring; Complete Time: 14:01 [facility] 02/24 13:09 Order name: EKG - Nurse/Tech; Complete Time: 14:01 [facility] 02/24 13:09 Order name: IV Saline Lock; Complete Time: 14:01 [facility] 02/24 13:09 Order name: Labs collected and sent; Complete Time: 14:01 [facility] 02/24 13:09 Order name: O2 Per Protocol; Complete Time: 14:01 [facility] 02/24 13:09 Order name: O2 Sat Monitoring; Complete Time: 14:01 [facility] 02/24 15:42 Order name: CONS Physician Consult [facility] 02/24 15:43 Order name: Physical Therapy Consult [facility] 02/24 15:43 Order name: Heart Healthy [facility] EC:16 Rate is 160 beats/min. Rhythm is irregularly irregular. QRS [place] is Normal. SD interval li is normal. QRS interval is normal. QT interval is normal. No Q waves. T waves are Normal. No ST changes noted. Clinical impression: Atrial Fibrillation and No evidence of ischemia. Interpreted by me. Reviewed by me. Administered Medications: 13:48 Drug: NS 0.9% 1000 ml Route: IV; Rate: 1 bolus; Site: right wrist; tw2 15:00 Follow up: Response: No adverse reaction; IV Status: Completed infusion; IV Intake: tw2 1000ml 13:48 Drug: SOLU-Medrol (methylPrednisoLONE) 125 mg Route: IVP; Site: right wrist; tw2 14:30 Follow up: Response: No adverse reaction tw2 13:50 Drug: Rocephin (cefTRIAXone) 1 grams Route: IV; Rate: per protocol; Site: right wrist; tw2 14:00 Follow up: Response: No adverse reaction; IV Status: Completed infusion; IV Intake: [id number] 14:19 Drug: Lopressor (metoprolol TARTRATE)) 25 mg Route: PO; tw2 14:42 Follow up: Response: No adverse reaction tw2 14:19 Drug: Zithromax (azithromycin) 500 mg Route: PO; tw2 14:42 Follow up: Response: No adverse reaction tw2 14:20 Drug: Digoxin 0.5 mg Route: IVP; Site: right wrist; tw2 14:42 Follow up: Response: No adverse reaction tw2 14:23 Drug: Pepcid (famotidine) 20 mg Route: IVP; Site: right wrist; tw2 14:41 Follow up: Response: No adverse reaction tw2 14:24 Drug: Lopressor (metoprolol) 2.5 mg {Note: hr 155, bp 153/96.} Route: IVP; Site: right tw2 wrist; 14:41 Follow up: Response: No adverse reaction; No adverse reaction, HR lowered tw2 14:26 Drug: Lovenox (enoxaparin) 1 mg/kg Route: Sub-Q; Site: right lower abdomen; tw2 14:41 Follow up: Response: No adverse reaction tw2 14:30 Drug: Xopenex (levalbuterol) 3.75 mg Route: Inhalation; tw2 14:30 Drug: AtroVENT (ipratropium) Aerosol 0.5 mg Route: Inhalation; tw2 14:41 Drug: Lopressor (metoprolol) 2.5 mg {Note: hr 108 bp 136/72.} Route: IVP; Site: right tw2 wrist; Disposition Summary: 02/24/22 14:26 Hospitalization Ordered Hospitalization Status: Inpatient Admission li Provider: Nawaf Rodriguez li Condition: Fair li Problem: new li Symptoms: have improved il Bed/Room Type: Standard li Location: Telemetry/MedSurg (Inpatient)(02/24/22 20:10) Room Assignment: 204(02/24/22 20:10) Diagnosis - Paroxysmal atrial fibrillation li - Persistent atrial fibrillation - with RVR li - COPD/ Chronic obstructive pulmonary disease with (acute) exacerbation li Forms: - Medication Reconciliation Form li - SBAR form li Signatures: Dispatcher [employer] EDMS Nevaeh Fry Martha RN RN Aris Davis MD MD cha Mickail, Joel, PA PA jmm Wise, Tara, RN RN tw2 Ary León RN RN ld1 Corrections: (The following items were deleted from the chart) 16:31 14:26 Telemetry/MedSurg (Inpatient) li bd 16:31 14:26 li bd 20:10 16:31 [facility] ER HOLD bd mw 20:10 16:31 ERHOLD- bd mw
--- NOTE | 2022-02-25 10:13 | ER ---
Nurse's Notes [facility] Name: Ada Ford Age: 76 yrs Sex: Female : 1945 Arrival Date: 02/24/2022 Time: 12:30 Bed 7 Private MD: Justice Adame B Diagnosis: Paroxysmal atrial fibrillation;Persistent atrial fibrillation-with RVR;COPD/ Chronic obstructive pulmonary disease with (acute) exacerbation Presentation: 02/24 12:34 Chief complaint: Patient states: SOB, shakiness. Found out her HR was high this morning ld1 at the doctor's office. Coronavirus screen: Vaccine status: Patient reports receiving the 2nd dose of the covid vaccine. Ebola Screen: No symptoms or risks identified at this time. Initial Sepsis Screen: Does the patient meet any 2 criteria? No. Patient's initial sepsis screen is negative. Does the patient have a suspected source of infection? No. Patient's initial sepsis screen is negative. Risk Assessment: Do you want to hurt yourself or someone else? Patient reports no desire to harm self or others. Onset of symptoms was February 22, 2022. 12:34 Method Of Arrival: Ambulatory ld1 12:34 Acuity: ABHISHEK 3 ld1 13:25 Acuity: ABHISHEK 2 iw Triage Assessment: 12:38 General: Appears in no apparent distress. comfortable, Behavior is cooperative, ld1 appropriate for age, anxious. Pain: Complains of pain in right foot and left foot Pain currently is 7 out of 10 on a pain scale. Pain began 2-3 days ago. Is continuous. EENT: No signs and/or symptoms were reported regarding the EENT system. Neuro: Level of Consciousness is awake, alert, obeys commands, Oriented to person, place, time, situation. Cardiovascular: Capillary refill < 3 seconds Patient's skin is warm and dry. Cardiovascular: Rhythm is sinus tachycardia. Respiratory: Respiratory: Airway is patent Respiratory effort is even, labored, pursed lip. Respiratory: Breath sounds are coarse bilaterally. Breath sounds with wheezes bilaterally. 12:42 GI: No signs and/or symptoms were reported involving the gastrointestinal system. : ld1 No signs and/or symptoms were reported regarding the genitourinary system. Derm: No signs and/or symptoms reported regarding the dermatologic system. Musculoskeletal: No signs and/or symptoms reported regarding the musculoskeletal system. Historical: - Allergies: 12:38 PENICILLINS; ld1 - PMHx: 12:38 Chronic obstructive lung disease; Hypercholesterolemia; ld1 - PSHx: 12:38 Total abdominal hysterectomy; ld1 - Immunization history:: Adult Immunizations up to date. - Social history:: Smoking status: Patient reports the use of cigarette tobacco products, smokes two packs cigarettes per day. Patient uses alcohol, on a daily basis. - Family history:: not pertinent. Screenin:45 Abuse screen: Denies threats or abuse. Denies injuries from another. Nutritional bp screening: No deficits noted. Tuberculosis screening: No symptoms or risk factors identified. Fall Risk None identified. Assessment: 12:45 General: SEE TRIAGE NOTE. bp 14:37 Reassessment: Patient appears in no apparent distress at this time. Patient and/or tw2 family updated on plan of care and expected duration. Pain level reassessed. Patient is alert, oriented x 3, equal unlabored respirations, skin warm/dry/pink. 15:14 Reassessment: hospitalist at bedside at this time. tw2 16:10 Reassessment: Patient appears in no apparent distress at this time. Patient and/or tw2 family updated on plan of care and expected duration. Pain level reassessed. Patient is alert, oriented x 3, equal unlabored respirations, skin warm/dry/pink. Vital Signs: 12:34 BP 121 / 79 LA Sitting (auto/reg); Pulse 141; Resp 40; Temp 98.5; Pulse Ox 95% on R/A; ld1 Weight 58.97 kg; Height 5 ft. 4 in. (162.56 cm); Pain 7/10; 13:30 BP 131 / 67; Pulse 124; Resp 22; Pulse Ox 99% on 3 lpm NC; tw2 14:07 BP 158 / 79; Pulse 126; Resp 24; Pulse Ox 98% on 3 lpm NC; tw2 14:35 BP 141 / 95; Pulse 67; Resp 25; Pulse Ox 100% on Nebulizer Mask; tw2 14:59 BP 118 / 97; Pulse 78; Resp 25; Pulse Ox 100% on Nebulizer Mask; tw2 15:30 BP 139 / 62; Pulse 70; Resp 22; Pulse Ox 100% on 2 lpm NC; tw2 16:09 BP 151 / 74; Pulse 76; Resp 21; Pulse Ox 100% on 2 lpm NC; tw2 12:34 Body Mass Index 22.32 (58.97 kg, 162.56 cm) ld1 ED Course: 12:30 Patient arrived in ED. mr 12:30 Justice Adame MD is Private Physician. mr 12:38 Triage completed. ld1 12:43 Arm band placed on right wrist. ld1 12:45 Patient has correct armband on for positive identification. Bed in low position. Call bp light in reach. Side rails up X2. 12:49 Murray Mcclure, YANET is Primary Nurse. bp 13:00 Inserted saline lock: 20 gauge in right wrist, using aseptic technique. bp 13:05 Aris Rosales MD is Attending Physician. li 13:30 XRAY Chest (1 view) In Process Unspecified. EDMS 14:23 Nawaf Rodriguez MD is Hospitalizing Provider. li 17:47 No provider procedures requiring assistance completed. Patient admitted, IV remains in tw2 place. 19:22 Primary Nurse role handed off by Murray Mcclure RN mw2 20:32 Chrystal Neri RN is Primary Nurse. ll3 Administered Medications: 13:48 Drug: NS 0.9% 1000 ml Route: IV; Rate: 1 bolus; Site: right wrist; tw2 15:00 Follow up: Response: No adverse reaction; IV Status: Completed infusion; IV Intake: tw2 1000ml 13:48 Drug: SOLU-Medrol (methylPrednisoLONE) 125 mg Route: IVP; Site: right wrist; tw2 14:30 Follow up: Response: No adverse reaction tw2 13:50 Drug: Rocephin (cefTRIAXone) 1 grams Route: IV; Rate: per protocol; Site: right wrist; tw2 14:00 Follow up: Response: No adverse reaction; IV Status: Completed infusion; IV Intake: [id number] 14:19 Drug: Lopressor (metoprolol TARTRATE)) 25 mg Route: PO; tw2 14:42 Follow up: Response: No adverse reaction tw2 14:19 Drug: Zithromax (azithromycin) 500 mg Route: PO; tw2 14:42 Follow up: Response: No adverse reaction tw2 14:20 Drug: Digoxin 0.5 mg Route: IVP; Site: right wrist; tw2 14:42 Follow up: Response: No adverse reaction tw2 14:23 Drug: Pepcid (famotidine) 20 mg Route: IVP; Site: right wrist; tw2 14:41 Follow up: Response: No adverse reaction tw2 14:24 Drug: Lopressor (metoprolol) 2.5 mg {Note: hr 155, bp 153/96.} Route: IVP; Site: right tw2 wrist; 14:41 Follow up: Response: No adverse reaction; No adverse reaction, HR lowered tw2 14:26 Drug: Lovenox (enoxaparin) 1 mg/kg Route: Sub-Q; Site: right lower abdomen; tw2 14:41 Follow up: Response: No adverse reaction tw2 14:30 Drug: Xopenex (levalbuterol) 3.75 mg Route: Inhalation; tw2 14:30 Drug: AtroVENT (ipratropium) Aerosol 0.5 mg Route: Inhalation; tw2 14:41 Drug: Lopressor (metoprolol) 2.5 mg {Note: hr 108 bp 136/72.} Route: IVP; Site: right tw2 wrist; Medication: 12:45 VIS not applicable for this client. bp Intake: 14:00 IV: 10ml; Total: 10ml. tw2 15:00 IV: 1000ml; Total: 1010ml. tw2 Outcome: 14:26 Decision to Hospitalize by Provider. li 17:47 Admitted to ER Hold. Please see [facility] for further documentation. tw2 17:47 Condition: stable 17:47 Instructed on the need for admit. 21:56 Patient left the ED. ll3 Signatures: Dispatcher [employer] EDAris Rogers MD MD cha Rivera, Soheila mr Elsy Lu, RN Laverne Quesada RN RN tw2 Murray Mcclure RN RN bp Chon Guerra mw2 Ary León RN RN ld1 Chrystal Neri RN RN ll3 Corrections: (The following items were deleted from the chart) 12:42 12:34 BP 121 / 79 Sitting Auto L Arm Regular; Pulse 141bpm; Resp 20bpm; Pulse Ox 95% ld1 RA; Temp 98.5F; 58.97 kg; Height 5 ft. 4 in.; BMI: 22.3; Pain 7/10; ld1 16:44 14:35 BP 141 / 95; Pulse 107bpm; Resp 25bpm; Pulse Ox 100% Nebulizer Mask; tw2 tw2 16:44 14:07 BP 158 / 79; Pulse 131bpm; Resp 24bpm; Pulse Ox 98% 3 lpm Nasal Cannula; tw 16:44 13:30 BP 131 / 67; Pulse 160bpm; Resp 22bpm; Pulse Ox 99% 3 lpm Nasal Cannula; tw 16:44 14:59 BP 118 / 97; Pulse 100bpm; Resp 25bpm; Pulse Ox 100% Nebulizer Mask; tw 16:44 16:09 BP 151 / 74; Pulse 115bpm; Resp 21bpm; Pulse Ox 100% 2 lpm Nasal Cannula; 16:44 15:30 BP 139 / 62; Pulse 145bpm; Resp 22bpm; Pulse Ox 100% 2 lpm Nasal Cannula;
[2022-02-25 11:57] VITALS: BP 143/69; TEMP 97.4
--- NOTE | 2022-02-25 12:11 | P.CNS ---
Date of Consult: 02/25/22 Reason for Consult: COPD exacerbation Primary Care Provider: Dr. Adame Chief Complaint: afib rvr, new onset, COPD exacerbation History of Present Illness: Patient is 76 years of age has been sick for about 2 weeks complaining of incr easing shortness of breath chest congestion initially did better on Trelegy as was stopped and active smoker is feeling little better Allergies Penicillins Allergy (Verified 07/09/16 13:00) Rash mycins Allergy (Uncoded 07/09/16 13:00) Hives/Rash Home Medications: Aspirin [Aspirin EC 81 MG] 81 mg PO DAILY 05/21/16 Atorvastatin Calcium [Lipitor] 40 mg PO BEDTIME 05/21/16 Losartan Potassium [Cozaar*] 50 mg PO DAILY AFTER SUPPER 05/21/16 Multivitamin [Multivitamins] 1 each PO DAILY 05/21/16 Vit A/Vit C/Vit E/Zinc/Copper [Icaps Areds Softgel] 1 each PO DAILY 05/21/16 Brimonidine Tartrate [Alphagan P] 1 drop OP BID 07/09/16 Cholecalciferol (Vitamin D3) [Vitamin D3] 1,000 unit PO DAILY 07/09/16 Dorzolamide HCl/Timolol Maleat [Dorzolamide-Timolol Eye Drops] 1 drop OP BID 07/09/16 Flaxseed Oil 1,000 mg PO DAILY 07/09/16 Magnesium Oxide [Mag 0X*] 400 mg PO DAILY 07/09/16 Fluticasone/Umeclidin/Vilanter [Trelegy Ellipta 100-62.5-25] 1 each IH DAILY 30 Days #30 02/25/22 - Past Medical/Surgical History Diabetic: No -: COPD -: HLD -: total abdominal hysterectomy - Social History Smoking Status: Current every day smoker Alcohol use: Yes Place of Residence: Home Review of Systems General: Weakness Respiratory: Cough, Shortness of Breath Physical Examination Temp Pulse Resp BP Pulse Ox 97.4 F 76 20 143/69 H 95 02/25/22 11:56 02/25/22 11:56 02/25/22 11:56 02/25/22 11:56 02/25/22 11:56 General: Alert, Oriented x3 Neck: Supple Respiratory: Expiratory wheezes Cardiovascular: No edema, Regular rate/rhythm, Normal S1 S2 Gastrointestinal: Normal bowel sounds, Soft and benign Laboratory Data (last 24 hrs) 02/24/22 13:45: PT 11.3, INR 1.03 02/24/22 13:45: WBC 7.8, Hgb 12.2, Hct 37.4, Plt Count 190 02/24/22 13:45: Sodium 138, Potassium 3.9, BUN 4 L, Creatinine 0.69, Glucose 98, Magnesium 1.8, Total Bilirubin 0.7, AST 19, ALT 20, Alkaline Phosphatase 102 - Problems (1) COPD exacerbation Current Visit: Yes Status: Acute Plan: Patient is 76 years of age with a history of COPD admitted with an exacerbation chest x-ray shows COPD changes and did much better with Trelegy that was discontinued continues to smoke chemistries reviewed labs reviewed oxygenation stable doing much better plan to discharge prednisone 10 mg twice a day for 10 days and a trilogy follow-up with me in 2 weeks (2) Atrial flutter Current Visit: Yes Status: Acute Plan: New onset patient is anticoagulated rate controlled Qualifiers: Atrial flutter type: typical Qualified Code(s): I48.3 - Typical atrial flutter
--- NOTE | 2022-02-25 22:55 | P.DS ---
Admission Date: 02/24/22 Discharge Date: 02/25/22 Primary Care Provider: Dr. Adame Disposition: ROUTINE DISCHARGE Discharge Condition: GOOD Reason for Admission: afib rvr, new onset, COPD exacerbation Consultations: Cardio - Dorian Shelley Brief History of Present Illness: 76yo F, PMH: COPD, HLD Presents to ED due to ~3-4 days of progressively worsening shortness of breath and bilateral feet swelling. Associated with significant dyspnea on exertion, unable to ambulate to bathroom from her bed without significant shortness of breath. Seen by PCP today and noted to have irregular rhythm and tachycardic, so was sent to ED for further evaluation. In the ED, patient was noted to be in afib with RVR, heart rate up to 150-160s. Improved with metoprolol and digoxin. Patient denies any prior afib, and reports she did have rheumatic fever as a child. She does not see a technical illustrator and has otherwise been fairly healthy. Denies any recent illness, no fever/chills. She has been using her albuterol rescue inhaler more often lately due to shortness of breath and wheezing. She was maintained on Trelegy, however she ran out a few months ago. She is unsure why it was stopped. Patient admitted for further management. Hospital Course: Problem List aflutter with RVR, new onset acute hypoxemic respiratory failure secondary to aflutter and COPD exacerbation acute on chronic COPD exacerbation HLD Patient was found to be atrial flutter with rapid heart rate. She was given metoprolol and one dose of digoxin with improvement of heart rate. She was continued on metoprolol 25mg twice daily with good rate control of her atrial flutter. CHADSVASc score: 3, started on Xarelto. Cardiology was consulted, recommended continuation of metoprolol 25mg twice daily and xarelto on discharge. Patient was deemed stable for discharge home. Echocardiogram was obtained prior to discharge. Cardiology will review and follow up. Follow up with Dr. Alarcon in 2-3 weeks. She was also treated for COPD exacerbation with nebulizers and steroids. Pulmonology recommended continue short course of steroids on discharge, and re- ordered Trelegy for patient. Follow up with Pulmonology in ~2 weeks. Vital Signs/Physical Exam: Temp Pulse Resp BP Pulse Ox 97.4 F 76 20 143/69 H 95 08/03/22 11:56 02/25/22 11:56 02/25/22 11:56 02/25/22 11:56 02/25/22 11:56 General: Alert, In no apparent distress, Oriented x3 HEENT: EOMI, Sclerae nonicteric Respiratory: Clear to auscultation bilaterally, Normal air movement Cardiovascular: Edema (trace b/l to ankles), Irregular heart rate/rhythm (HR: 70 -80s) Gastrointestinal: Soft and benign, Non-distended, No tenderness Musculoskeletal: No tenderness Integumentary: No rashes, No significant lesion Neurological: Normal speech, Normal affect Laboratory Data at Discharge: WBC 3.1 K/uL (4.3-10.9) L D 02/25/22 05:12 Hgb 11.2 g/dL (12.0-15.0) L 02/25/22 05:12 Hct 34.0 % (36.0-45.0) L 02/25/22 05:12 Plt Count 161 K/uL (152-406) 02/25/22 05:12 PT 11.3 SECONDS (9.5-12.5) 02/24/22 13:45 INR 1.03 02/24/22 13:45 Sodium 137 mmol/L (136-145) 02/25/22 05:12 Potassium 4.6 mmol/L (3.5-5.1) 02/25/22 05:12 BUN 9 mg/dL (7-18) 02/25/22 05:12 Creatinine 0.70 mg/dL (0.55-1.3) 02/25/22 05:12 Glucose 146 mg/dL (74-106) H 02/25/22 05:12 Magnesium 1.8 mg/dL (1.8-2.4) 02/25/22 05:12 Total Bilirubin 0.3 mg/dL (0.2-1.0) 02/25/22 05:12 AST 17 U/L (15-37) 02/25/22 05:12 ALT 17 U/L (12-78) 02/25/22 05:12 Alkaline Phosphatase 92 U/L (45-117) 02/25/22 05:12 Triglycerides 47 mg/dL (<150) 02/25/22 05:12 Cholesterol 110 mg/dL (<200) 02/25/22 05:12 HDL Cholesterol 70 mg/dL (40-60) H 02/25/22 05:12 Cholesterol/HDL Ratio 1.57 02/25/22 05:12 Home Medications: Aspirin [Aspirin EC 81 MG] 81 mg PO DAILY 05/21/16 Atorvastatin Calcium [Lipitor] 40 mg PO BEDTIME 05/21/16 Losartan Potassium [Cozaar*] 50 mg PO DAILY AFTER SUPPER 05/21/16 Multivitamin [Multivitamins] 1 each PO DAILY 05/21/16 Vit A/Vit C/Vit E/Zinc/Copper [Icaps Areds Softgel] 1 each PO DAILY 05/21/16 Brimonidine Tartrate [Alphagan P] 1 drop OP BID 07/09/16 Cholecalciferol (Vitamin D3) [Vitamin D3] 1,000 unit PO DAILY 07/09/16 Dorzolamide HCl/Timolol Maleat [Dorzolamide-Timolol Eye Drops] 1 drop OP BID 07/09/16 Flaxseed Oil 1,000 mg PO DAILY 07/09/16 Magnesium Oxide [Mag 0X*] 400 mg PO DAILY 07/09/16 Fluticasone/Umeclidin/Vilanter [Trelegy Ellipta 100-62.5-25] 1 each IH DAILY 30 Days #30 02/25/22 Fluticasone/Umeclidin/Vilanter [Trelegy Ellipta 200-62.5-25] 1 each IH DAILY #1 02/25/22 Metoprolol Tartrate [Lopressor*] 25 mg PO BID 30 Days #60 tab 02/25/22 Rivaroxaban [Xarelto] 20 mg PO DAILY AT SUPPER 30 Days #30 tab 02/25/22 predniSONE [Prednisone*] 20 mg PO SEECOM 7 Days #11 tab 02/25/22 New Medications: Metoprolol Tartrate [Lopressor*] 25 mg PO BID 30 Days #60 tab predniSONE [Prednisone*] 20 mg PO SEECOM 7 Days #11 tab Fluticasone/Umeclidin/Vilanter [Trelegy Ellipta 100-62.5-25] 1 each IH DAILY 30 Days #30 Fluticasone/Umeclidin/Vilanter [Trelegy Ellipta 200-62.5-25] 1 each IH DAILY #1 Rivaroxaban [Xarelto] 20 mg PO DAILY AT SUPPER 30 Days #30 tab Physician Discharge Instructions: Patient was found to be atrial flutter with rapid heart rate. She was given metoprolol and one dose of digoxin with improvement of heart rate. She was continued on metoprolol 25mg twice daily with good rate control of her atrial flutter. CHADSVASc score: 3, started on Xarelto. Cardiology was consulted, recommended continuation of metoprolol 25mg twice daily and xarelto on discharge. Patient was deemed stable for discharge home. Echocardiogram was obtained prior to discharge. Cardiology will review and follow up. Follow up with Dr. Alarcon in 2-3 weeks. She was also treated for COPD exacerbation with nebulizers and steroids. Pulmonology recommended continue short course of steroids on discharge, and re- ordered Trelegy for patient. Follow up with Pulmonology in ~2 weeks. Followup: Louie Shelley MD [ACTIVE - CAN ADMIT] - Castillo Alarcon MD [ACTIVE - CAN ADMIT] - Justice Adame MD [Primary Care Provider] - Time spent managing pt's care (in minutes): 45
--- NOTE | 2022-02-26 07:58 | ECHO ---
HEIGHT: 5 ft 4 in WEIGHT: 130 lb 0 oz DATE OF STUDY: 02/25/[address]: Aris Rosales MD 2-DIMENSIONAL: YES M.MODE: YES DOPPLER: YES COLOR FLOW: YES TDS: PORTABLE: YES DEFINITY: BUBBLE STUDY: DIAGNOSIS: ATRIAL FLUTTER CARDIAC HISTORY: CATHERIZATION: NO SURGERY: NO PROSTHETIC VALVE: NO PACEMAKER: NO MEASUREMENTS (cm) DIASTOLIC (NORMALS) SYSTOLIC (NORMALS) IVSd 0.9 (0.6-1.2) LA Diam 2.4 (1.9-4.0) LVEF 59% LVIDd 3.9 (3.5-5.7) LVIDs 2.7 (2.0-3.5) %FS 31% LVPWd 0.9 (0.6-1.2) Ao Diam 2.7 (2.0-3.7) 2 DIMENSIONAL ASSESSMENT: RIGHT ATRIUM: NORMAL LEFT ATRIUM: NORMAL RIGHT VENTRICLE: NORMAL LEFT VENTRICLE: NORMAL TRICUSPID VALVE: NORMAL MITRAL VALVE: NORMAL PULMONIC VALVE: NORMAL AORTIC VALVE: SCLEROSIS PERICARDIAL EFFUSION: NONE AORTIC ROOT: NORMAL LEFT VENTRICULAR WALL MOTION: NORMAL DOPPLER/COLOR FLOW: NORMAL COMMENTS: AORTIC SCLEROSIS. NORMAL LEFT VENTRICULAR EJECTION FRACTION AND SIZE. NO WALL MOTION ABNORMALITY. NO THOMBUS. TECHNOLOGIST: BEATRIZ ELLISON
--- NOTE | 2022-02-27 13:03 | CON ---
Date of Consultation: 02/25/2022 Reason For Consultation: New onset atrial fibrillation. History Of Present Illness: Ms. Ford is a 76-year-old woman. She has a history of COPD and dysli pidemia. Came in with COPD exacerbation and was noted to be in atrial fibrillation with rapid ventri cular response. Last heart rate, however was 96. She was intermittent between atrial flutter and at rial fibrillation. No chest pain, nausea, vomiting, diaphoresis, PND, orthopnea, pedal edema, palpit ations, or syncope. Complains of shortness of breath. Past Medical History: As stated above. Allergies: SHE IS ALLERGIC TO PENICILLIN. Review of Systems: Negative. Social History: Negative. Family History: Noncontributory. Medications: At home include aspirin, Lipitor, and Cozaar. Physical Examination: Vital Signs: Atrial flutter, 96. Vital signs otherwise stable, afebrile. General: No acute distress. HEENT: Negative. Neck: Supple. No bruit. Chest: Revealed rales at the bases with wheezing on expiration. Cardiac: Revealed atrial flutter. Abdomen: Benign. Extremities: Revealed no clubbing, cyanosis, or edema. Diagnostic Data: Were positive for a BNP of 557. EKG showed atrial flutter. Chest x-ray showed PHYSICIAN NON INVASIVE CARDIOLOGIST D. Impression And Plan: 1.Chronic obstructive pulmonary disease exacerbation. 2.Dyslipidemia. 3.Hypertension. 4.Atrial fibrillation and flutter, rate control. I would continue metoprolol. Continue Xarelto. Check a 2D echocardiogram hopefully when her chronic obstructive pulmonary disease improves with atrial flutter or fibrillation goes away. Nevertheless, we will see her in the office as an outpatient. She may need an outpatient Lexiscan. TOY/PADMINI Voice ID: [id number] Report ID: [id number]
== END 2022-02-25 15:07 | disposition home or self-care (01) | DRG 308 ==
LOC: ER 12:29 → ERHOLD 15:39 → 2ND 20:18
PROVIDERS: ADMIT Hospitalist; ATTEND Hospitalist
DX: I48.3 Typical atrial flutter (principal); J96.01 Acute respiratory failure with hypoxia; J44.1 Chronic obstructive pulmonary disease with (acute) exacerbation; I48.91 Unspecified atrial fibrillation; I10 Essential (primary) hypertension; E78.5 Hyperlipidemia, unspecified; R53.1 Weakness; E78.00 Pure hypercholesterolemia, unspecified; F17.210 Nicotine dependence, cigarettes, uncomplicated; Z20.822 Contact with and (suspected) exposure to COVID-19; Z79.82 Long term (current) use of aspirin; Z79.899 Other long term (current) drug therapy; Z88.0 Allergy status to penicillin; Z90.710 Acquired absence of both cervix and uterus
CPT/HCPCS: 36415; 71045; 80048; 80053; 80061; 80076; 83605; 83735; 83880; 84145; 84439; 84443; 84484; 85025; 85610; 87040; 87811; 93005; 93306; 94760; 96361; 96372; 96374; 96375; 99285; J1160; J1650; J2930; J3535; J7030; J7512

== ENCOUNTER 2022-03-25 18:23 | Observation (INO) | payer OTHER ==
--- OUTSIDE RECORDS SUMMARY | 2022-03-25 18:27 | XMS REPORT | Continuity of Care Document ---
:[address] [facility] t Address [address] [place] [address] Care Team Providers Name Role Phone Justice Adame MD Primary Care Physician [phone] JOSE LIGHT Attending Clinician Unavailable JOSE LIGHT Admitting Clinician Unavailable Payers Payer Name Policy Type Policy Number Effective Date Expiration Date S jt [employer] MEDICARE HMO [id number] 2018 POS PPO 00:00:00 Problems Condition Condition Condition Status Onset Resolution Last Treating Co mments Source Name Details Category Date Date Treatment Clinician Date Symptomati Symptomati Disease Active [facility] chole[facility]ithi 00:00: Me dical asis asis 00 Center Essential Essential Disease Active [facility] hypertensi hypertensi 6-26 [facility] on on 00:00: Medical 00 Center Mixed Mixed Disease Active [facility] hyperlipid hyperlipid 6-26 [facility] kes emia emia 00:00: Medical 00 Center Panlobular Panlobular Disease Active [facility] emphysema emphysema 6-26 [facility] 00:[facility] 00 Center Biliary Biliary Disease Active [facility] colic colic 6[facility]25 [facility] 00:[facility] Center Allergies, Adverse Reactions, Alerts Allergy Allergy Status Severity Reaction(s) Onset Inactive Treating Comm ents Source Name Type Date Date Clinician Lactose Drug Active Diarrhea milk [facility] Intolera 6-25 [facility] nce 00:[facility]: Medical 00 Center LACTOSE Allergy Active Med Diarrhea 2018- [facility] Iodine Drug Active Hives During [facility] And Allergy 6-20 [facility] Iodide 00:00: Medical Containi 00 Center ng Products Penicill Drug Active Other (See hypotensi [facility] ins Intolera Comments) 620 on [facility] nce 00:[facility]: Medical 00 Center IODINE Allergy Active Med Hives [facility] AND 6-20 [facility] IODIDE 00:00: Medical CONTAINI 00 Center NG PRODUCTS PENICILL Allergy Active Med Other [facility] INS 6-20 [facility] 00:00: Medical 00 Center Social History Social Habit Start Date Stop Date Quantity Comments Source History SDOH Alcohol [facility] Std Drinks [facility] Center History SDOH Alcohol [facility] Binge [facility] Center History SDOH Alcohol [facility] Comment [facility] Alcohol intake 2019-01-17 2019-01-17 .14 /d [facility] es 00:00:00 00:00:00 [facility] Center History SDOH Alcohol 2019-01-12 2019-01-[address] [facility] Frequency 00:00:00 00:00:00 [facility] Cigarettes smoked 2019-01-12 2019-01-[address] [facility] current (pack per 00:00:00 00:00:00 [facility] Center day) - Reported Cigarette pack-years 2019-01-12 2019-01-[address] [facility] 00:00:00 00:00:00 [facility] Tobacco use and 2019-01-12 2019-01-[address] [facility] Mariana kes exposure 00:00:00 00:00:00 [facility] Sex Ass[birth year] [facility]3] kes 00:00:00 00:00:00 [facility] Smoking Status Start Date Stop Date Source Current every day smoker 2019-01-12 00:00:00 [facility] Medications Ordered Filled Start Stop Current Ordering Indication Dosage Frequency Signature Comments Components Source Medication Medication Date Date Medication? Clinician (SIG) Name Name mv-mn/iron/ Yes Take by [facility] folic 6-25 mouth. [facility] acid/herb 16:38: Medical 190 47 Center (VITAMIN D3 COMPLETE ORAL) omega-3 Yes 2g Q.5D Take [address] fatty 6-25 by mouth 2 [facility] acids-fish 16:38: (two) Medica l oil 47 times Center 340-1,000 daily. mg Cap per capsule FLAXSEED Yes Take by [facility] ORAL 6-25 mouth. [facility] 16:38: [place] [id number] Center vit A/vit Yes Take by [facility] t C/vit 6-25 mouth. [facility] E/zinc/josh 16:38: Medica l er 47 Center (PRESERVISI ON AREDS ORAL) brimonidine Yes 1[drp] Q.5D Place [address] (ALPHAGAN) 6-25 drop into Luke s 0.15 % 16:38: both eyes Medica l ophthalmic 47 (two) Center solution times daily. Missing or Yes . [facility] Non-Formula 6-25 [facility] ry 16:38: Medical Medication [address] [place] [address] atorvastati Yes 40mg QD Take [address] n (LIPITOR) 6-25 by mouth Luke s 40 MG 16:38: daily. Medical tablet [address] [place] [address] losartan Yes 100mg QD Take [address] (COZAAR) 6-25 mg by [facility]ukes 100 MG 16:38: mouth Medical tablet 47 daily. [place] alendronate Yes 70mg Take [address] (FOSAMAX) 6-25 by mouth [facility]ukes 70 MG 16:38: every 7 Medical tablet 47 days Take Center in the morning with a full glass of water, on an empty stomach, and do not take anything else by mouth or lie down for the next 30 min. . aspirin 81 Yes 81mg QD Take [address] MG EC 6-25 by mouth [facility] tablet 16:38: daily. [address] traMADol Yes 50mg Take [address] (ULTRAM) 50 6-25 tablet (50 Mariana kes mg tablet 00:00: mg total) Med ical 00 by mouth Center every 6 (six) hours as needed for Pain for up to 10 doses. Max Daily Amount: 200 mg Procedures This patient has no known procedures. Plan of Care Planned Activity Planned Date Details Comments Source Future Scheduled 2022-03-26 INFLUENZA VACCINE (#1) [facility] Test 00:00:00 [code = INFLUENZA Medical Ce nter VACCINE (#1)] Future Scheduled 2021-07-[address] [facility] Test 00:00:00 (12+) [code = Medical Center DEPRESSION SCREENING (12+)] Future Scheduled 2021-07-26 FALLS RISK SCREENING [facility] Test 00:00:00 [code = FALLS RISK Medical C enter SCREENING] Future Scheduled 2019-07-[address] [facility] Test 00:00:00 WELLNESS (YEAR 2 or Medical Center FIRST YEAR if no IPPE) [code = MEDICARE ANNUAL WELLNESS (YEAR 2 or FIRST YEAR if no IPPE)] Future Scheduled 1993 SHINGLES VACCINES ([address] [facility] Test 00:00:00 of 2) [code = SHINGLES Medic al Center VACCINES (1 of 2)] Future Scheduled 1962 DTAP/TDAP/TD VACCINES [facility] Test 00:00:00 (1 - Tdap) [code = Medical C enter DTAP/TDAP/TD VACCINES (1 - Tdap)] Future Scheduled 1961 HEPATITIS C SCREENING [facility] Test 00:00:00 [code = HEPATITIS C Medical Center SCREENING] Future Scheduled 1949 PNEUMOCOCCAL 65+ YRS [facility] Test 00:00:00 (1 - PCV) [code = Medical Ce nter PNEUMOCOCCAL 65+ YRS (1 - PCV)] Future Scheduled 1944[birth year]02[birth year]23 COVID-19 VACCINE (#1) [facility] Test 00:00:00 [code = COVID-[address] VACCINE (#1)] Future Scheduled 1945 DXA SCAN [code = DXA [facility] Test 00:00:00 SCAN] [facility] Center Encounters Start End Encounter Admission Attending Care Care Encounter Source Date/Time Date/Time Type Type Clinicians Facility Department ID 2019-09-05 2019-09-05 [facility] [id number] [facility] 00:00:00 00:00:00 JOSE Results Test Description Test Time Test Comments Results Result [facility] e Comments MR, ABDOMEN, WITH 2019-09-12 FINAL REPORT PATIENT 18:04:00 ID: [id number] MRI of the abdomen dated September 12, [...] MDReport Verified Date/Time: 09/12/2019 18:04:45 Reading Location: [facility] C013Y CT Body Reading Room -CREATININE 2019-09-12 12:27:00 Test Item Value Reference Range Interpretation Comme [facility] POC-CREATININE (BEAKER) (test 0.8 mg/dL 0.6-1.3 TESTED AT [facility] 6720 code = 1859) [facility] [address] POC-EGFR (BEAKER) (test code = 70 mL/min/1.73M2 1860) TISSUE [id number] 18:27:00Surgical Pathology Report Case: [id number] Authorizing Provider: Jose Light MD Collected: 01/17/2019 1219 Ordering Location: [facility] PERIOPERATIVE Received: 01/17/2019 1329 SERVICES Pathologist: Megan Aguillon MD Specimen: Gallbladder GALLBLADDER, CHOLECYSTECTOMY: - FOCAL INTESTINAL METAPLASIA - CHRONIC CHOLECYSTITIS WITH CHOLELITHIASIS - ONE BENIGN REACTIVE LYMPH NODE Signing Pathologist Direct Phone Line: [phone] signed by Megan Aguillon MD on 01/19/2019 at 6:27 [id number] of bile duct without cholangitis or biliary obstruction Gallbladder The specimen consists of anintact gallbladder in a plastic bag in formalin measuring 4.5 cm in length with a maximum diameter of 2.5 cm. The specimen oozes a wtcxo-drxqf-erqjib bile of normal viscosity on compression. The [...] the fundus wall is A2. TMW/ewPerformed.MR, ABDOMEN, [id number] 16:32:00FINAL REPORT INDICATION:Pancreas mass. COMPARISON: None. TECHNIQUE: [...] in 6-12 months is recommended. Signed: Alvaro Perryort Verified Date/Time: 01/13/2019 16:32:06 Reading Location: [facility] Diagnostic Imaging Reading Room - [place] [id number] 13:49:00 Test Item Value Reference Range Interpretation Comments SODIUM (BEAKER) (test code = 381) 134 meq/L 136-145 L POTASSIUM (BEAKER) (test code = 4.2 meq/L 3.5-5.1 379) CHLORIDE (BEAKER) (test code = 382) 102 meq/L 98-107 CO2 (BEAKER) (test code = 355) 26 meq/L 22-29 [id number] 13:49:00 Test Item Value Reference Range Interpretation Comments GLUCOSE RANDOM (BEAKER) (test code = 79 mg/dL 70-105 652) BUN AND [id number] 13:49:00 Test Item Value Reference Range Interpretation Comments BLOOD UREA NITROGEN 9 mg/dL 7-21 (BEAKER) (test code = 354) CREATININE (BEAKER) 0.79 mg/dL 0.57-1.25 (test code = 358) EGFR (BEAKER) (test 71 mL/min/1.73 ESTIMA AZAR GFR IS code = 1092) sq m NOT ACCURATE CREATININE CLEARANCE IN PREDICTING GLOMERULAR FILTRATION RATE . ESTIMATED GFR I S NOT APPLICABLE FOR DIALYSIS PATIEN TS. [id number] 13:21:00 Test Item Value Reference Range Interpretation Comments HEMOGLOBIN (BEAKER) (test code = 12.8 GM/DL 11.2-15.7 410) [id number] 10:48:00 Test Item Value Reference Range Interpretation Comments POC-CREATININE 0.8 mg/dL 0.6-1.3 TESTED AT [facility] MC-KG (BEAKER) (test 1157 [facility] code = 1859) [facility] 7703 0 POC-EGFR 70 mL/min/1.73M2 (BEAKER) (test code = 1860)
[2022-03-25] MEDS ORDERED: METOPROLOL TARTRATE 5 MG/5 ML INJ IV ONE (19:16)
[2022-03-25] MEDS ORDERED: MAGNESIUM SULFATE 1 gm IVPB 1 GM/100 ML BAG IV ONE (19:31)
[2022-03-25 19:35] LABS: Absolute Lymphocytes (CBC) 2.3 K/uL (0.7-4.9); MCV 83.6 fL (80-100); RBC Red Blood Cell Count 3.82 M/uL (3.86-4.86)
[2022-03-25 19:43] LABS: Magnesium 2.1 mg/dL (1.8-2.4); Potassium 4.3 mmol/L (3.5-5.1); Troponin High Sensitivity 10.4 pg/mL (<58.9)
[2022-03-25] MEDS ORDERED: NA CHLORIDE 0.9% 250 ML ONE (19:44)
--- NOTE | 2022-03-25 20:10 | RAD REPORT ---
EXAM DESCRIPTION: Monalisa Single View03/25/2022 7:29 pm CLINICAL HISTORY: Chest pain COMPARISON: February 24, 2022 FINDINGS: The lungs are moderately hyperaerated. The lungs appear clear of acute infiltrate. The heart is normal size IMPRESSION: No acute abnormalities displayed
--- NOTE | 2022-03-25 20:44 | ER ---
Nurse's Notes [facility] Name: Ada Ford Age: 76 yrs Sex: Female : 1945 Arrival Date: 03/25/2022 Time: 18:24 Bed 18 Private MD: Justice Adame B Diagnosis: Unspecified atrial flutter;Tachycardia, unspecified;Dyspnea, unspecified Presentation: 03/25 18:41 Chief complaint: Patient's son or daughter states: "she stood up earlier today and vg1 became dizzy then c/o CP and SOB" Son stated took pt HR and first read was 154, second read of HR was 180 and third read of HR was 160. Coronavirus screen: Vaccine status: Patient reports receiving the 2nd dose of the covid vaccine. Client denies travel out of the [place] in the last 14 days. Ebola Screen: Patient negative for fever greater than or equal to 101.5 degrees Fahrenheit, and additional compatible Ebola Virus Disease symptoms Patient denies exposure to infectious person. Patient denies travel to an Ebola-affected area in the 21 days before illness onset. Initial Sepsis Screen: Does the patient meet any 2 criteria? HR > 90 bpm. Does the patient have a suspected source of infection? No. Patient's initial sepsis screen is negative. Risk Assessment: Do you want to hurt yourself or someone else? Patient reports no desire to harm self or others. Onset of symptoms was March 25, 2022. 18:41 Method Of Arrival: Wheelchair vg1 18:41 Acuity: ABHISHEK 2 vg1 Triage Assessment: 18:44 General: Appears uncomfortable, Behavior is calm, cooperative. Pain: Complains of pain vg1 in anterior aspect of left upper chest Pain does not radiate. Pain currently is 8 out of 10 on a pain scale. Pain began 1 hour ago. Neuro: Level of Consciousness is awake, alert, obeys commands, Oriented to person, place, time, situation, Reports dizziness. Cardiovascular: Patient's skin is warm and dry. Chest pain is described as Pain is 8 out of 10 on a pain scale. Respiratory: Reports shortness of breath Airway is patent Respiratory effort is even, unlabored. 18:44 GI: Reports nausea. vg1 Historical: - Allergies: 18:44 PENICILLINS; vg1 18:44 Iodine; vg1 - Home Meds: 18:44 atorvastatin oral [Active]; prednisone Oral [Active]; Xarelto oral [Active]; nebivolol vg1 oral [Active]; Spironolactone Oral [Active]; - PMHx: 18:44 Chronic obstructive lung disease; Hypercholesterolemia; Atrial fibrillation; vg1 - PSHx: 18:44 Total abdominal hysterectomy; vg1 - Immunization history:: Client reports receiving the 2nd dose of the Covid vaccine. - Social history:: Smoking status: Patient reports the use of cigarette tobacco products, 1.5 PPD. Screenin:45 Abuse screen: Denies threats or abuse. Denies injuries from another. Nutritional kb3 screening: No deficits noted. Tuberculosis screening: No symptoms or risk factors identified. Fall Risk None identified. Assessment: 18:45 General: Appears distressed, comfortable, Behavior is cooperative, anxious, Received kb3 care of pt from triage. Pt is AAO x4. Reports intermittent CP throughout the day with increasing SOB and "feeling jittery." Son reports that he regularly checks her HR and O2 sat, both were normal last night but at 1700 today, HR was 160's. . 18:45 Pain: Complains of pain in anterior aspect of right upper chest and anterior aspect of kb3 left upper chest Pain does not radiate. Pain currently is 7 out of 10 on a pain scale. Quality of pain is described as heavy, pressure, Pain began 1 day ago. Is continuous. Cardiovascular: Rhythm is atrial flutter 2:1. Respiratory: Breath sounds are clear bilaterally. 19:11 General: Metoprolol 5mg IVP x1 dose administered.. kb3 19:54 Reassessment: metopolol has been given x2 with decrease in hr rate between 98 and 114. ja4 03/26 01:31 Reassessment: report given to felix. hawk Vital Signs: 03/25 18:41 BP 113 / 82; Pulse 153; Resp 18; Temp 97.9; Pulse Ox 96% on R/A; Weight 55.79 kg; vg1 Height 5 ft. 3 in. (160.02 cm); Pain 8/10; 20:35 BP 110 / 48; Pulse 90; Resp 16; Pulse Ox 98% on R/A; ja4 21:19 Pulse 118; Resp 16; ja4 21:20 Pulse 122; Resp 16; ja4 21:58 BP 114 / 50; Pulse 113; Resp 17; Pulse Ox 98% ; ja4 03/26 00:11 BP 99 / 71; Pulse 131; Resp 22; ja4 01:32 BP 108 / 55; Pulse 164; Resp 17; ja4 03/25 18:41 Body Mass Index 21.79 (55.79 kg, 160.02 cm) vg1 Vitals: 03/25 18:45 Cardiac Rhythm Assessment Irregular Atrial flutter 2:1. kb3 ED Course: 18:24 Patient arrived in ED. rg4 18:25 Justice Adame MD is Private Physician. rg4 18:26 Gianni Swartz DO is Attending Physician. ms3 18:44 Triage completed. vg1 18:44 Arm band placed on. vg1 18:45 Patient has correct armband on for positive identification. Placed in gown. Bed in low kb3 position. Call light in reach. Side rails up X2. Client placed on continuous cardiac and pulse oximetry monitoring. NIBP monitoring applied. teletypesetter monitor on. Pulse ox on. NIBP on. 18:45 Inserted saline lock: 20 gauge in right wrist, using aseptic technique. Blood kb3 collected. Oxygen administration via nasal cannula \\T\\ 2L/min. 19:08 Ashley Linares, YANET is Primary Nurse. kb3 19:26 Attending Physician role handed off by Gianni Swartz DO rn 19:26 Juan Jose Rodriguez MD is Attending Physician. rn 19:31 XRAY Chest (1 view) In Process Unspecified. EDMS 20:43 Nawaf Rodriguez MD is Hospitalizing Provider. rn 21:19 SARS RAPID Sent. ja4 Administered Medications: 19:27 Drug: Magnesium Sulfate 1 grams Route: IVPB; Infused Over: 1 hrs; Site: right wrist; ja4 21:19 Follow up: Pulse 118 bpm; Resp 16 bpm ja4 19:40 Drug: NS 0.9% 250 ml Route: IV; Rate: 1 bolus; Site: right wrist; ja4 20:13 Drug: Metoprolol 5 mg Route: IVP; Site: right wrist; ja4 21:20 Follow up: Pulse 122 bpm; Resp 16 bpm ja4 20:13 Drug: Metoprolol 5 mg Route: IVP; Site: right wrist; ja4 21:50 Drug: Sotalol 80 mg Route: PO; ja4 Medication: 18:45 VIS not applicable for this client. kb3 Outcome: 20:43 Decision to Hospitalize by Provider. yanet 03/26 01:33 Admitted to Med/surg via wheelchair, room 201, with oxygen, on monitor. ja4 01:43 Patient left the ED. steph4 Signatures: Dispatcher [employer] EDMS Juan Jose Rodriguez MD MD rn Garcia, Rubi rg4 Beata Castro RN RN estelle1 Gianni Swartz, DO ms3 Ashley Linares RN RN kb3 Niraj Robles RN RN ja4
--- NOTE | 2022-03-25 20:44 | EDPHYS ---
Physician Documentation [facility] Name: Ada Ford Age: 76 yrs Sex: Female : 1945 Arrival Date: 03/25/2022 Time: 18:24 Bed 18 Private MD: Justice Adame B ED Physician Juan Jose oRdriguez HPI: 03/25 19:20 This 76 yrs old Female presents to ER via Wheelchair with complaints of Elevated Heart ms3 Rate, Chest Pain, Dizziness. 19:21 76-year-old female with past medical history of COPD, hypercholesterolemia, atrial ms3 fibrillation presents for racing heart rate that began earlier today. Patient states she has had mild chest pain all afternoon. Patient states the pain is worse with breathing in. Patient endorses nausea and shortness of breath. Patient denies vomiting or headache. Patient states she is currently on nebivolol 10 mg was instructed to take an additional 10 mg 1 hour prior to arrival by her physician Dr. Adame.. Historical: - Allergies: 18:44 PENICILLINS; vg1 18:44 Iodine; vg1 - Home Meds: 18:44 atorvastatin oral [Active]; prednisone Oral [Active]; Xarelto oral [Active]; nebivolol vg1 oral [Active]; Spironolactone Oral [Active]; - PMHx: 18:44 Chronic obstructive lung disease; Hypercholesterolemia; Atrial fibrillation; vg1 - PSHx: 18:44 Total abdominal hysterectomy; vg1 - Immunization history:: Client reports receiving the 2nd dose of the Covid vaccine. - Social history:: Smoking status: Patient reports the use of cigarette tobacco products, 1.5 PPD. ROS: 19:21 Constitutional: Negative for fever, and chills. Neck: Negative for injury, pain, and ms3 swelling. 19:21 Abdomen/GI: Negative for abdominal pain, nausea, vomiting, diarrhea, and constipation, MS/Extremity: Negative for injury and deformity, Skin: Negative for injury, rash, and discoloration, Psych: Negative for depression, anxiety, suicide ideation, homicidal ideation, and hallucinations. 19:21 Cardiovascular: Positive for chest pain. 19:21 Respiratory: Positive for shortness of breath, at rest. Exam: 19:21 Constitutional: This is a well developed, well nourished patient who is awake, alert, ms3 and in no acute distress. Head/Face: Normocephalic, atraumatic. Neck: Trachea midline, no cervical lymphadenopathy. Supple, full range of motion without nuchal rigidity, or vertebral point tenderness. No Meningismus. Chest/axilla: Normal chest wall appearance and motion. Nontender with no deformity. 19:21 Cardiovascular: Rate: tachycardic, Rhythm: regular, Pulses: no pulse deficits are appreciated, Heart sounds: murmur, systolic. 19:21 ECG was reviewed by the Attending Physician. Vital Signs: 18:41 BP 113 / 82; Pulse 153; Resp 18; Temp 97.9; Pulse Ox 96% on R/A; Weight 55.79 kg; vg1 Height 5 ft. 3 in. (160.02 cm); Pain 8/10; 20:35 BP 110 / 48; Pulse 90; Resp 16; Pulse Ox 98% on R/A; ja4 21:19 Pulse 118; Resp 16; ja4 21:20 Pulse 122; Resp 16; ja4 21:58 BP 114 / 50; Pulse 113; Resp 17; Pulse Ox 98% ; ja4 03/26 00:11 BP 99 / 71; Pulse 131; Resp 22; ja4 01:32 BP 108 / 55; Pulse 164; Resp 17; ja4 03/25 18:41 Body Mass Index 21.79 (55.79 kg, 160.02 cm) vg1 MDM: 03/25 18:56 Patient medically screened. ms3 19:21 Differential diagnosis: abnormal EKG, stable angina, unstable angina, A fib with RVR. ms3 Transition of care: After a detail discussion of the patient's case, care is transferred to Juan Jose Rodriguez MD. 19:26 ED course: Signed out to me by Dr. Swartz, given 1 dose of metoprolol already, HR rn improving, added magnesium and small bolus for pressure support. . 20:41 Data reviewed: vital signs, nurses notes, lab test result(s), EKG, radiologic studies, rn plain films, and as a result, I will admit patient. Counseling: I had a detailed discussion with the patient and/or guardian regarding: the historical points, exam findings, and any diagnostic results supporting the discharge/admit diagnosis, lab results, radiology results, the need for further work-up and treatment in the hospital. Medical screen evaluation completed. [facility] emergency medical condition absent. Response to treatment: the patient's symptoms have mildly improved after treatment, and as a result, I will admit patient. Admission orders: after a detailed discussion of the patient's condition and case, the admit orders are written by me. 03/25 18:43 Order name: Basic Metabolic Panel; Complete Time: 19:46 ms3 03/25 18:43 Order name: CBC with Diff; Complete Time: 19:46 ms3 03/25 18:43 Order name: Magnesium; Complete Time: 19:46 ms3 03/25 18:43 Order name: Troponin HS; Complete Time: 19:46 ms3 03/25 18:43 Order name: XRAY Chest (1 view); Complete Time: 20:21 ms3 03/25 20:57 Order name: SARS RAPID mw2 03/25 18:43 Order name: EKG; Complete Time: 18:44 ms3 03/25 18:43 Order name: Cardiac monitoring; Complete Time: 19:09 ms3 03/25 18:43 Order name: EKG - Nurse/Tech; Complete Time: 19:09 ms3 03/25 18:43 Order name: IV Saline Lock; Complete Time: 19:09 ms3 03/25 18:43 Order name: Labs collected and sent; Complete Time: 19:09 ms3 03/25 18:43 Order name: O2 Per Protocol; Complete Time: 19:09 ms3 03/25 18:43 Order name: O2 Sat Monitoring; Complete Time: 19:09 ms3 EC:21 Rate is 153 beats/min. Rhythm is regular. QRS [place] is Normal. QRS interval is normal. ms3 Clinical impression: Atrial Flutter. Interpreted by me. Reviewed by me. Administered Medications: 19:27 Drug: Magnesium Sulfate 1 grams Route: IVPB; Infused Over: 1 hrs; Site: right wrist; ja4 21:19 Follow up: Pulse 118 bpm; Resp 16 bpm ja4 19:40 Drug: NS 0.9% 250 ml Route: IV; Rate: 1 bolus; Site: right wrist; ja4 20:13 Drug: Metoprolol 5 mg Route: IVP; Site: right wrist; ja4 21:20 Follow up: Pulse 122 bpm; Resp 16 bpm ja4 20:13 Drug: Metoprolol 5 mg Route: IVP; Site: right wrist; ja4 21:50 Drug: Sotalol 80 mg Route: PO; ja4 Disposition: 20:41 Critical Care:. rn Disposition Summary: 03/25/22 20:43 Hospitalization Ordered Hospitalization Status: Observation rn Provider: Nawaf Rodriguez rn Location: Telemetry/MedSurg (observation) rn Condition: Stable rn Problem: an acute exacerbation rn Symptoms: have improved rn Bed/Room Type: Standard rn Room Assignment: 201(03/26/22 00:57) cg Diagnosis - Unspecified atrial flutter rn - Tachycardia, unspecified rn - Dyspnea, unspecified rn Forms: - Medication Reconciliation Form rn - SBAR form collections attorney time excluding procedures: 20:41 Critical care time: Bedside Care: 30 minutes, Consultation: 5 minutes. Total time: 35 rn minutes Signatures: Dispatcher [employer] EDMS Juan Jose Rodriguez MD MD rn Attema, Lee, REGISTERED ASSOCIATE-C REGISTERED ASSOCIATE-Cla1 Judie Castro, RN RN cg Beata Castro RN RN estelle1 Gianni Swartz DO DO ms3 Niraj Robles, RN RN ja4 Corrections: (The following items were deleted from the chart) 03/26 00:57 03/25 20:43 rn cg
[2022-03-25] MEDS ORDERED: SOTALOL HCL 80 MG TAB ONE (21:15)
[2022-03-25 21:42] LABS: SARS-CoV-2 Antigen Rapid Res Negative (Negative)
--- NOTE | 2022-03-25 21:49 | P.HP ---
Certification for Inpatient Patient admitted to: Observation With expected LOS: <2 Midnights Patient will require the following post-hospital care: None Practitioner: I am a practitioner with admitting privileges, knowledge of patient current condition, hospital course, and medical plan of care. Services: Services provided to patient in accordance with Admission requirements found in Title 42 Section 412.3 of the Code of Federal Regulations Patient History Date of Service: 03/25/22 Reason for admission: A. fib RVR History of Present Illness: 76-year-old female with history of atrial fibrillation on chronic anticoagulation, hyperlipidemia, COPD presents the emergency department for dizziness, chest pain, palpitations. She was seen here earlier this month and diagnosed with atrial fibrillation she was placed on metoprolol 25 mg p.o. twice daily as well as Xarelto, she reports that one of her doctors changed her medication to nebivolol approximately 2 weeks ago. Patient was noted to be in A. fib RVR upon arrival to the emergency department with rate between 140s to 150s, she is given 3 rounds of Lopressor 5 mg IV in the ED, rate has improved moderately. Currently rate around 125. Case was discussed with cardiology who recommends switching patient from nebivolol to sotalol, dose given tonight. Will admit under observation for A. fib RVR. Allergies Penicillins Allergy (Verified 07/09/16 13:00) Rash mycins Allergy (Uncoded 07/09/16 13:00) Hives/Rash Home Medications: Aspirin [Aspirin EC 81 MG] 81 mg PO DAILY 05/21/16 Atorvastatin Calcium [Lipitor] 40 mg PO BEDTIME 05/21/16 Losartan Potassium [Cozaar*] 50 mg PO DAILY AFTER SUPPER 05/21/16 Multivitamin [Multivitamins] 1 each PO DAILY 05/21/16 Vit A/Vit C/Vit E/Zinc/Copper [Icaps Areds Softgel] 1 each PO DAILY 05/21/16 Brimonidine Tartrate [Alphagan P] 1 drop OP BID 07/09/16 Cholecalciferol (Vitamin D3) [Vitamin D3] 1,000 unit PO DAILY 07/09/16 Dorzolamide HCl/Timolol Maleat [Dorzolamide-Timolol Eye Drops] 1 drop OP BID 07/09/16 Flaxseed Oil 1,000 mg PO DAILY 07/09/16 Magnesium Oxide [Mag 0X*] 400 mg PO DAILY 07/09/16 Fluticasone/Umeclidin/Vilanter [Trelegy Ellipta 100-62.5-25] 1 each IH DAILY 30 Days #30 02/25/22 Fluticasone/Umeclidin/Vilanter [Trelegy Ellipta 200-62.5-25] 1 each IH DAILY #1 02/25/22 Metoprolol Tartrate [Lopressor*] 25 mg PO BID 30 Days #60 tab 02/25/22 Rivaroxaban [Xarelto] 20 mg PO DAILY AT SUPPER 30 Days #30 tab 02/25/22 predniSONE [Prednisone*] 20 mg PO SEECOM 7 Days #11 tab 02/25/22 - Past Medical/Surgical History Diabetic: No -: COPD -: HLD -: A. fib -: total abdominal hysterectomy Psychosocial/ Personal History: Patient lives at home with her son - Family History Family History: Reviewed- Non-Contributory - Social History Smoking Status: Current every day smoker Counseled patient to stop smoking for: less than 10 minutes Alcohol use: Yes Place of Residence: Home Review of Systems 10-point ROS is otherwise unremarkable Cardiovascular: Chest Pain, Palpitations Physical Examination - Physical Exam General: Alert, In no apparent distress, Oriented x3 HEENT: Atraumatic, PERRLA, Mucous membr. moist/pink, EOMI, Sclerae nonicteric Neck: Supple, 2+ carotid pulse no bruit, No LAD, Without JVD or thyroid abnormality Respiratory: Clear to auscultation bilaterally, Normal air movement Cardiovascular: Regular rate/rhythm, Normal S1 S2 Capillary refill: <2 Seconds Gastrointestinal: Normal bowel sounds, No tenderness Musculoskeletal: No tenderness Integumentary: No rashes Neurological: Normal speech, Normal strength at 5/5 x4 extr, Normal tone, Normal affect - Studies Laboratory Data (last 24 hrs) 03/25/22 19:08: WBC 12.90 H, Hgb 10.4 L, Hct 32.0 L, Plt Count 347 03/25/22 19:08: Sodium 134 L, Potassium 4.3, BUN 14, Creatinine 1.27, Glucose 116 H, Magnesium 2.1 Assessment and Plan - Plan Assessment: A. fib with RVR on chronic anticoagulation Hyperlipidemia COPD Plan: A. fib with RVR on chronic anticoagulation: Case discussed with cardiology, switch to sotalol, monitor on tele. Will trend troponins as well. Eho 02/25 wtih aortic sclerosis, normal LVEF and size. Hyperlipidemia: Continue home meds. COPD: NO exacerbation, PNR Nebs DVT PPX: Continue xarelto Code status: Full Discharge Plan: Home Plan to discharge in: 24 Hours - Advance Directives Does patient have a Living Will: No Does patient have a Durable POA for Healthcare: No - Code Status/Comfort Care Code Status Assessed: Yes (Full) Critical Care: No Time Spent Managing Pts Care (In Minutes): 70
[2022-03-26] MEDS ORDERED: ONDANSETRON 4 MG/2 ML VIAL IV PRN (01:57)
[2022-03-26 02:31] VITALS: BMI 21.7
[2022-03-26 02:51] LABS: Absolute Lymphocytes (CBC) 1.2 K/uL (0.7-4.9); Hematocrit 29.3 % (36.0-45.0); Lymphocytes % 12.6 % (15.3-44.8); MCV 83.5 fL (80-100); MPV 6.9 fL (7.6-11.3); RBC Red Blood Cell Count 3.51 M/uL (3.86-4.86)
[2022-03-26 03:08] LABS: Albumin 2.9 g/dL (3.4-5.0); Bilirubin Total 0.5 mg/dL (0.2-1.0); Magnesium 2.4 mg/dL (1.8-2.4); Protein, Total 6.1 g/dL (6.4-8.2); Thyroid Stimulating Hormone 0.665 uIU/mL (0.360-3.740)
[2022-03-26 04:32] VITALS: O2SAT 98
[2022-03-26] MEDS ORDERED: SOTALOL HCL 80 MG TAB PO SCH (06:00)
--- NOTE | 2022-03-26 06:27 | P.PN ---
Date of Service: 03/26/22
[2022-03-26 12:13] VITALS: BP 127/56; TEMP 98.5
--- NOTE | 2022-03-26 12:29 | CON ---
Date of Consultation: 03/25/2022 Reason For Consultation: Atrial fibrillation with rapid ventricular response. History Of Present Illness: The patient is 76. Has a history of COPD, dyslipidemia, recent onset at rial fibrillation, converted to sinus rhythm few weeks ago, was placed on metoprolol and Xarelto, and was sent home on aspirin, Lipitor, inhaler, losartan, prednisone, Xarelto, and her metoprolol, but s he comes back with rapid ventricular response, chest pain, dizziness, and palpitation. Denied any na usea, vomiting, diaphoresis, PND, orthopnea, pedal edema, or syncope. Denied any fever or chills, bu t her workup is normal. Her echo was normal. Past Medical History: As stated above. Allergies: SHE IS ALLERGIC TO PENICILLIN AND IODINE. Review of Systems: Negative. Social History: Negative. Family History: Negative. Medications: Listed earlier. Physical Examination: General: She is in atrial fibrillation, rapid ventricular response. HEENT: Negative. Neck: Supple with no bruit. Chest: Clear. Cardiac: Revealed atrial fibrillation. Abdomen: Benign. Extremities: Revealed no clubbing, cyanosis, or edema. Diagnostic Data: Normal. Echo was normal. EKG showed AFib. Impression And Plan: Recurrent atrial fibrillation, on metoprolol and Xarelto. I would like to swit ch her to sotalol 80 mg b.i.d. and consider cardioversion down the road if the sotalol does not work. She can go home once her rate is controlled on sotalol and Xarelto and the rest of her medications. Add metoprolol. We will see her in the office as an outpatient for atrial fibrillation. We will p shelly a cardioversion in the near future. She will eventually to have a stress test, preferably a Maria Luisa scan. TOY/PADMINI Voice ID: [id number] Report ID: [id number]
--- NOTE | 2022-03-26 13:57 | EKG ---
Test Date: 2022-03-25 Test Time: 18:47:46 Facilities Flight Check Pilot: TP MEASUREMENT RESULTS: Intervals: Rate: 153 AL: QRSD: 74 QT: 308 QTc: 491 [place]: P: AL: QRS: 84 T: 83 INTERPRETIVE STATEMENTS: Supraventricular tachycardia ST-T waves abnormalities likely due to the fast heart rate. Electronically Signed On 03-26-22 13:56:47 CDT by Pete Salas
[2022-03-26] MEDS ORDERED: RIVAROXABAN 15 MG TABLET PO SCH (17:00)
[2022-03-26] MEDS ORDERED: RIVAROXABAN 10 MG TABLET PO SCH ×2 (17:00)
--- NOTE | 2022-03-26 20:56 | P.DS ---
Admission Date: 03/25/22 Discharge Date: 03/26/22 Disposition: ROUTINE DISCHARGE Discharge Condition: GOOD Reason for Admission: A. fib RVR Consultations: Cardiology - Dr. Alarcon Brief History of Present Illness: 76-year-old female with history of atrial fibrillation on chronic anticoagulation, hyperlipidemia, COPD presents the emergency department for dizziness, chest pain, palpitations. She was seen here earlier this month and diagnosed with atrial fibrillation she was placed on metoprolol 25 mg p.o. twice daily as well as Xarelto, she reports that one of her doctors changed her medication to nebivolol approximately 2 weeks ago. Patient was noted to be in A. fib RVR upon arrival to the emergency department with rate between 140s to 150s, she is given 3 rounds of Lopressor 5 mg IV in the ED, rate has improved moderately. Currently rate around 125. Case was discussed with cardiology who recommends switching patient from nebivolol to sotalol, dose given tonight. Will admit under observation for A. fib RVR. Hospital Course: Problem List A. fib with RVR on chronic anticoagulation Hyperlipidemia COPD Patient presented with atrial fibrillation/flutter with elevated heart rate. Dr. Alarcon was consulted. She had improvement and stability of hear heart rate after initiation of sotalol. She was deemed stable for discharge home. To stop other beta blockers and replace with Sotalol. Continue xarelto. Follow up with Dr. Alarcon in ~1-2 weeks. Call office to schedule follow up. Vital Signs/Physical Exam: Temp Pulse Resp BP Pulse Ox 98.5 F 89 18 127/56 L 92 03/26/22 12:00 03/26/22 12:03/26/22 12:03/26/22 12:03/26/22 12:00 General: Alert, In no apparent distress HEENT: EOMI, Sclerae nonicteric Neck: Supple, No LAD Respiratory: Clear to auscultation bilaterally, Normal air movement Cardiovascular: Edema (trace b/l pedal), Irregular heart rate/rhythm (HR: 70s) Gastrointestinal: Soft and benign, Non-distended, No tenderness Musculoskeletal: No erythema, No tenderness Integumentary: No rashes, No significant lesion Neurological: Normal speech, Normal strength at 5/5 x4 extr, Normal affect Laboratory Data at Discharge: WBC 9.50 K/uL (4.3-10.9) D 03/26/22 02:24 Hgb 9.6 g/dL (12.0-15.0) L 03/26/22 02:24 Hct 29.3 % (36.0-45.0) L 03/26/22 02:24 Plt Count 297 K/uL (152-406) 03/26/22 02:24 Sodium 135 mmol/L (136-145) L 03/26/22 02:24 Potassium 5.0 mmol/L (3.5-5.1) 03/26/22 02:24 BUN 15 mg/dL (7-18) 03/26/22 02:24 Creatinine 1.13 mg/dL (0.55-1.3) 03/26/22 02:24 Glucose 126 mg/dL (74-106) H 03/26/22 02:24 Magnesium 2.4 mg/dL (1.8-2.4) 03/26/22 02:24 Total Bilirubin 0.5 mg/dL (0.2-1.0) 03/26/22 02:24 AST 13 U/L (15-37) L 03/26/22 02:24 ALT 17 U/L (12-78) 03/26/22 02:24 Alkaline Phosphatase 73 U/L (45-117) 03/26/22 02:24 Home Medications: Aspirin [Aspirin EC 81 MG] 81 mg PO DAILY 05/21/16 Atorvastatin Calcium [Lipitor] 40 mg PO BEDTIME 05/21/16 Losartan Potassium [Cozaar*] 50 mg PO DAILY AFTER SUPPER 05/21/16 Multivitamin [Multivitamins] 1 each PO DAILY 05/21/16 Vit A/Vit C/Vit E/Zinc/Copper [Icaps Areds Softgel] 1 each PO DAILY 05/21/16 Brimonidine Tartrate [Alphagan P] 1 drop OP BID 07/09/16 Cholecalciferol (Vitamin D3) [Vitamin D3] 1,000 unit PO DAILY 07/09/16 Dorzolamide HCl/Timolol Maleat [Dorzolamide-Timolol Eye Drops] 1 drop OP BID 07/09/16 Flaxseed Oil 1,000 mg PO DAILY 07/09/16 Magnesium Oxide [Mag 0X*] 400 mg PO DAILY 07/09/16 Fluticasone/Umeclidin/Vilanter [Trelegy Ellipta 100-62.5-25] 1 each IH DAILY 30 Days #30 02/25/22 Fluticasone/Umeclidin/Vilanter [Trelegy Ellipta 200-62.5-25] 1 each IH DAILY #1 02/25/22 Rivaroxaban [Xarelto] 20 mg PO DAILY AT SUPPER 30 Days #30 tab 02/25/22 Sotalol HCl [Betapace*] 80 mg PO BID 30 Days #60 tab 03/26/22 New Medications: Sotalol HCl [Betapace*] 80 mg PO BID 30 Days #60 tab Physician Discharge Instructions: Patient presented with atrial fibrillation/flutter with elevated heart rate. Dr. Alarcon was consulted. She had improvement and stability of hear heart rate after initiation of sotalol. She was deemed stable for discharge home. To stop other beta blockers and replace with Sotalol. Continue xarelto. Follow up with Dr. Alarcon in ~1-2 weeks. Call office to schedule follow up. Followup: Castillo Alarcon MD [ACTIVE - CAN ADMIT] - Justice Adame MD [Primary Care Provider] - Time spent managing pt's care (in minutes): 40
== END 2022-03-26 15:26 | disposition home or self-care (01) ==
LOC: ER 18:23 → ERHOLD 21:39 → 2ND 03-26 01:38
PROVIDERS: ADMIT Hospitalist; ATTEND Hospitalist
DX: I48.91 Unspecified atrial fibrillation (principal); I48.92 Unspecified atrial flutter; J44.9 Chronic obstructive pulmonary disease, unspecified; E78.5 Hyperlipidemia, unspecified; R00.0 Tachycardia, unspecified; F17.210 Nicotine dependence, cigarettes, uncomplicated; Z71.6 Tobacco abuse counseling; Z79.01 Long term (current) use of anticoagulants; Z79.82 Long term (current) use of aspirin; Z79.52 Long term (current) use of systemic steroids; Z79.899 Other long term (current) drug therapy; Z88.0 Allergy status to penicillin; Z88.8 Allergy status to other drugs, medicaments and biological substances; Z91.041 Radiographic dye allergy status; Z90.710 Acquired absence of both cervix and uterus; Z20.822 Contact with and (suspected) exposure to COVID-19
CPT/HCPCS: 36415; 71045; 80048; 80053; 83735; 84439; 84443; 84484; 85025; 87811; 93005; G0378; J3475; J7050

== ENCOUNTER 2022-07-13 23:57 | Inpatient (IN) | payer OTHER ==
--- OUTSIDE RECORDS SUMMARY | 2022-07-13 23:59 | XMS REPORT | Continuity of Care Document ---
:1945 Author Organization [facility] t Address [address] [place] [address] Care Team Providers Name Role Phone MYNOR MONROE Primary Care Physician Unavailable JOSE LIGHT Attending Clinician Unavailable JOSE LIGHT Admitting Clinician Unavailable Payers Payer Name Policy Type Policy Number Effective Date Expiration Date S jt [employer] MEDICARE O [id number] 2018 POS PPO 00:00:00 Problems Condition Condition Condition Status Onset Resolution Last Treating Co mments Source Name Details Category Date Date Treatment Clinician Date Symptomati Symptomati Disease Active [facility] chole[facility]ithi 00:00: Me dical asis asis 00 Center Essential Essential Disease Active [facility] hypertensi hypertensi -26 [facility] kes on on 00:00: Medical 00 [place] Mixed Mixed Disease Active [facility] hyperlipid hyperlipid - Mariana kes emia emia 00:00: Medical 00 Center Panlobular Panlobular Disease Active [facility] emphysema emphysema - [facility] s 00:00: Medical 00 [place] Biliary Biliary Disease Active [facility] colic colic 6-25 [facility] 00:[facility]: Medical 00 Center Allergies, Adverse Reactions, Alerts Allergy Allergy Status Severity Reaction(s) Onset Inactive Treating Comm ents Source Name Type Date Date Clinician LACTOSE Allergy Active Med Diarrhea [facility] 6-25 00:00: 00 Lactose Drug Active Diarrhea milk [facility] Int[facility]era 6-25 [facility] nce 00:[facility]: Medical 00 Center Penicill Drug Active Other (See hypotensi [facility] ins Intolera Comments) 01-12 on [facility] n[facility] 00:[facility]: Medical 00 Center IODINE Allergy Active Med Hives [facility] AND 01-12 IODIDE 00:00: CONTAINI 00 NG PRODUCTS PENICILL Allergy Active Med Other [facility] INS 01-12 00:00: 00 Iodine Drug Active Hives During CT [facility] And Allergy 01-12 scan [facility] Iodide 00:00: Medical Containi 00 Center ng Products Penicill Drug Active Other (See hypotensi [facility] ins Intolera Comments) 01-12 on [facility] nce 00:00: Medical 00 [place] Social History Social Habit Start Date Stop Date Quantity Comments Source History SDOH Alcohol [facility] Std Drinks [facility] History SDOH Alcohol [facility] Binge [facility] History SDOH Alcohol [facility] Comment [facility] Alcohol intake 2019-01-17 2019-01-17 .14 /d [facility] es 00:00:00 00:00:00 [facility] History SDOH Alcohol 2019-01-12 2019-01-[address] [facility] Frequency 00:00:00 00:00:00 [facility] Cigarettes smoked 2019-01-12 2019-01-[address] [facility] current (pack per 00:00:00 00:00:00 [facility] Center day) - Reported Cigarette pack-years 2019-01-12 2019-01-[address] [facility] 00:00:00 00:00:00 [facility] Tobacco use and 2019-01-12 2019-01-[address] [facility] [address] Mariana kes exposure 00:00:00 00:00:00 [facility] Sex Ass[birth year] [facility] St Mariana kes 00:00:00 00:00:00 [facility] Smoking Status Start Date Stop Date Source Current every day smoker 2019-01-12 00:00:00 [facility] St kes [facility] Medications Ordered Filled Start Stop Current Ordering Indication Dosage Frequency Signature Comments Components Source Medication Medication Date Date Medication? Clinician (SIG) Name Name atorvastati Yes 40mg QD Take [address] n (LIPITOR) 6-25 by mouth Luke s 40 MG 16:38: daily. Medical tablet 47 [place] losartan Yes 100mg QD Take [address] (COZAAR) 6-25 mg by [facility] 100 MG 16:38: mouth Medical tablet 47 daily. [place] alendronate Yes 70mg Take [address] (FOSAMAX) 6-25 by mouth [facility] 70 MG 16:38: every 7 Medical tablet 47 days Take Center in the morning with a full glass of water, on an empty stomach, and do not take anything else by mouth or lie down for the next 30 min. . aspirin 81 2018- Yes 81mg QD Take [address] MG EC 6-25 by mouth [facility] tablet 16:38: daily. [address] mv-mn/iron/ 2019-0 Yes Take by [facility] folic 6-25 mouth. [facility] acid/herb 16:38: Medical [address] [place] [address] (VITAMIN D3 COMPLETE ORAL) omega-3 Yes 2g Q.5D Take [address] fatty 6-25 by mouth 2 [facility] acids-fish 16:38: (two) Medica l oil 47 times Center 340-1,000 daily. mg Cap per capsule FLAXSEED Yes Take by [facility] ORAL 6-25 mouth. [facility] 16:38: [address] vit A/vit Yes Take by [facility] t C/vit 6-25 mouth. [facility] E/zinc/josh 16:38: Medica l er 47 Center (PRESERVISI ON AREDS ORAL) brimonidine Yes 1[drp] Q.5D Place [address] (ALPHAGAN) 6-25 drop into Luke s 0.15 % 16:38: both eyes Medica l ophthalmic 47 2 (two) Center solution times daily. Missing or 2018- Yes . [facility] Non-Formula 6-25 [facility] ry 16:38: Medical Medication 47 [place] atorvastati Yes 40mg QD Take [address] n (LIPITOR) 6-25 by mouth Luke s 40 MG 16:38: daily. Medical tablet 47 [place] losartan 0 Yes 100mg QD Take [address] (COZAAR) 6-25 mg by Lukes 100 MG 16:38: mouth Medical tablet 47 daily. [place] alendronate Yes 70mg Take [address] (FOSAMAX) 6-25 by mouth [facility]ukes 70 MG 16:38: every 7 Medical tablet 47 days Take Center in the morning with a full glass of water, on an empty stomach, and do not take anything else by mouth or lie down for the next 30 min. . aspirin 81 2018- Yes 81mg QD Take [address] MG EC 6-25 by mouth [facility] tablet 16:38: daily. Medical Center mv-mn/iron/ 2019-0 Yes Take by [facility] folic 6-25 mouth. [facility] acid/herb 16:38: Medical 190 Center (VITAMIN D3 COMPLETE ORAL) omega-3 2018- Yes 2g Q.5D Take [address] fatty 6-25 by mouth 2 [facility] acids-fish 16:38: (two) Medica l oil 47 times Center 340-1,000 daily. mg Cap per capsule FLAXSEED Yes Take by [facility] ORAL 6-25 mouth. [facility]ukes 16:38: [place] [address] Center vit A/vit 2019 Yes Take by [facility]I S t C/vit 6-25 mouth. [facility] E/zinc/josh 16:38: Medica l er 47 Center (PRESERVISI ON AREDS ORAL) brimonidine Yes 1[drp] Q.5D Place [address] (ALPHAGAN) 6-25 drop into Luke s 0.15 % 16:38: both eyes Medica l ophthalmic 47 2 (two) Center solution times daily. Missing or 2019- Yes . [facility] Non-Formula 6-25 [facility] ry 16:38: Medical Medication 47 Center traMADol Yes 50mg Take [address] (ULTRAM) 50 6-25 tablet (50 Mariana kes mg tablet 00:00: mg total) Med ical 00 by mouth Center every 6 (six) hours as needed for Pain for up to 10 doses. Max Daily Amount: 200 mg traMADol Yes 50mg Take [address] [facility] [...] Medical Ce nter VACCINE (#1)] Future Scheduled 2022-03-26 INFLUENZA VACCINE (#1) [facility] Test 00:00:00 [code = INFLUENZA Medical Ce nter VACCINE (#1)] Future Scheduled 2021-07-[address] [facility] Test 00:00:00 (12+) [code = Medical Center DEPRESSION SCREENING (12+)] Future Scheduled 2021-07-26 FALLS RISK SCREENING [facility] Test 00:00:00 [code = FALLS RISK Medical C enter SCREENING] Future Scheduled 2021-07-[address] [...] FIRST YEAR if no IPPE)] Future Scheduled 2019-07-[address] [facility] Test 00:00:00 WELLNESS (YEAR 2 or Medical Center FIRST YEAR if no IPPE) [code = MEDICARE ANNUAL WELLNESS (YEAR 2 or FIRST YEAR if no IPPE)] Future Scheduled 1993 SHINGLES VACCINES ([address] [facility] Test 00:00:00 of 2) [code = SHINGLES Medic al Center VACCINES (1 of 2)] Future Scheduled 1993 SHINGLES VACCINES ([address] [facility] Test 00:00:00 of 2) [code = SHINGLES Medic al Center VACCINES (1 of 2)] Future Scheduled 1962 DTAP/TDAP/TD VACCINES [facility] Test 00:00:00 (1 - Tdap) [code = Medical C enter DTAP/TDAP/TD VACCINES (1 - Tdap)] Future Scheduled 1962 DTAP/TDAP/TD VACCINES [facility] Test 00:00:00 (1 - Tdap) [code = Medical C enter DTAP/TDAP/TD VACCINES (1 - Tdap)] Future Scheduled 1961 HEPATITIS C SCREENING [facility] Test 00:00:00 [code = HEPATITIS C Medical Center SCREENING] Future Scheduled 1961 HEPATITIS C SCREENING [facility] Test 00:00:00 [code = HEPATITIS C [facility] Center SCREENING] Future Scheduled [address] [facility] Test 00:00:00 Counseling and Medical Cente r Screening (12+) [code = Tobacco Cessation Counseling and Screening (12+)] Future Scheduled 1949 PNEUMOCOCCAL 65+ YRS [facility] Test 00:00:00 (1 - PCV) [code = Medical Ce nter PNEUMOCOCCAL 65+ YRS (1 - PCV)] Future Scheduled 1949 PNEUMOCOCCAL 65+ YRS [facility] Test 00:00:00 (1 - PCV) [code = Medical Ce nter PNEUMOCOCCAL 65+ YRS (1 - PCV)] Future Scheduled 1944-02-23 COVID-19 VACCINE (#1) [facility] Test 00:00:00 [code = COVID-[address] VACCINE (#1)] Future Scheduled 1944-02-23 COVID-19 VACCINE (#1) [facility] Test 00:00:00 [code = COVID-[address] VACCINE (#1)] Future Scheduled 1945 DXA SCAN [code = DXA [facility] Test 00:00:00 SCAN] [facility] Center Future Scheduled 1945 DXA SCAN [code = DXA [facility] Test 00:00:00 SCAN] [facility] Center Encounters Start End Encounter Admission Attending Care Care Encounter Source Date/Time Date/Time Type Type Clinicians Facility Department ID 2019-09-05 2019-09-05 Outpatient AJ COLLINS [facility] [id number] SLE 00:00:00 00:00:00 JOSE Results Test Description Test Time Test Comments Results Result [facility] Comments MR, ABDOMEN, WITH 2019-09-12 FINAL REPORT PATIENT 18:04:00 ID: [id number] MRI of the abdomen dated September 12, [...] MDReport Verified Date/Time: 09/12/2019 18:04:45 Reading Location: [facility] C013Y CT Body Reading Room -CREATININE 2019-09-12 12:27:00 Test Item Value Reference Range Interpretation Comme [facility] POC-CREATININE (BEAKER) (test 0.8 mg/dL 0.6-1.3 TESTED AT [facility] 6720 code = 1859) [facility] [address] POC-EGFR (BEAKER) (test code = 70 mL/min/1.73M2 1860) TISSUE [id number] 18:27:00Surgical Pathology Report Case: [id number] Authorizing Provider: Jose Light MD Collected: 01/17/2019 1219 Ordering Location: [facility] PERIOPERATIVE Received: 01/17/2019 1329 SERVICES Pathologist: Megan Aguillon MD Specimen: Gallbladder GALLBLADDER, CHOLECYSTECTOMY: - 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 The specimen oozes a zxats-gdlnh-famdcn bile of normal viscosity on compression. The [...] the fundus wall is A2. TMW/ewPerformed.MR, ABDOMEN, [id number] 16:32:00FINAL REPORT INDICATION:Pancreas mass. COMPARISON: None. TECHNIQUE: [...] in 6-12 months is recommended. Signed: Alvaro Perry MDReport Verified Date/Time: 01/13/2019 16:32:06 Reading Location: [facility] Diagnostic Imaging Reading Room - [place] [address] 1120 [id number] 13:49:00 Test Item Value Reference Range Interpretation Comments SODIUM (BEAKER) (test code = 381) 134 meq/L 136-145 L POTASSIUM (BEAKER) (test code = 4.2 meq/L 3.5-5.1 379) CHLORIDE (BEAKER) (test code = 382) 102 meq/L 98-107 CO2 (BEAKER) (test code = 355) 26 meq/L 22-29 [id number] 13:49:00 Test Item Value Reference Range Interpretation Comments GLUCOSE RANDOM (BEAKER) (test code = 79 mg/dL 70-105 652) BUN AND [id number] 13:49:00 Test Item Value Reference Range Interpretation Comments BLOOD UREA NITROGEN 9 mg/dL 7-21 (BEAKER) (test code = 354) CREATININE (BEAKER) 0.79 mg/dL 0.57-1.25 (test code = 358) EGFR (BEAKER) (test 71 mL/min/1.73 ESTIMA AZAR GFR IS code = 1092) sq m NOT ACCURATE CREATININE CLEARANCE IN PREDICTING GLOMERULAR FILTRATION RATE . ESTIMATED GFR I S NOT APPLICABLE FOR DIALYSIS PATIEN TS. [id number] 13:21:00 Test Item Value Reference Range Interpretation Comments HEMOGLOBIN (BEAKER) (test code = 12.8 GM/DL 11.2-15.7 410) [id number] 10:48:00 Test Item Value Reference Range Interpretation Comments POC-CREATININE 0.8 mg/dL 0.6-1.3 TESTED AT [facility] ([employer]) (test [address] [facility] code = 1859) [place] [address] POC-EGFR 70 mL/min/1.73M2 (SecloreAKER) (test code = 1860)
[2022-07-14] MEDS ORDERED: METHYLPREDNISOLONE 125 MG INJ ONE (00:28)
[2022-07-14] MEDS ORDERED: ASPIRIN 81 MG CHEWABLE TABLET ONE (00:28)
[2022-07-14 00:47] LABS: Absolute Lymphocytes (CBC) 1.3 K/uL (0.7-4.9); Lymphocytes % 12.8 % (15.3-44.8); MCV 61.3 fL (80-100); MPV 8.2 fL (7.6-11.3); RBC Red Blood Cell Count 3.76 M/uL (3.86-4.86)
[2022-07-14] MEDS ORDERED: NA CHLORIDE 0.9% 500 ML ONE (00:50)
[2022-07-14 01:13] LABS: Bilirubin Direct 0.3 mg/dL (0-0.2); Bilirubin Total 0.9 mg/dL (0.2-1.0); Magnesium 2.3 mg/dL (1.6-2.4); Potassium 4.3 mmol/L (3.5-5.1); Troponin High Sensitivity 11.4 pg/mL (<58.9)
[2022-07-14 01:18] LABS: Protime INR 4.49
[2022-07-14] MEDS ORDERED: ALBUTEROL 2.5 MG/3 ML NEB SOL ONE (01:22)
[2022-07-14] MEDS ORDERED: IPRATROPIUM BROM 0.5MG/2.5ML ONE (01:22)
[2022-07-14] MEDS ORDERED: NA CHLORIDE 0.9% 750 ML ONE (01:22)
[2022-07-14 01:26] LABS: SARS-COV-2 RT PCR NEGATIVE (NEGATIVE)
--- NOTE | 2022-07-14 01:54 | ER ---
Nurse's Notes [facility] Name: Ada Ford Age: 76 yrs Sex: Female : 1945 Arrival Date: 07/13/2022 Time: 23:58 Bed 14 Private MD: Diagnosis: Anemia, unspecified;GI Bleed/ Gastrointestinal hemorrhage, unspecified;Weakness;Shortness of breath Presentation: 07/14 00:37 Chief complaint: EMS states: Toned out for SOB and generalized weakness X2-3 months, pt ll3 states the SOB and weakness worsened tonight. Coronavirus screen: Vaccine status: Patient reports receiving the 2nd dose of the covid vaccine. shortness of breath. Ebola Screen: No symptoms or risks identified at this time. Initial Sepsis Screen: Does the patient meet any 2 criteria? RR > 20 per min. Mean Arterial Pressure (MAP) < 65. Yes Does the patient have a suspected source of infection? No. Patient's initial sepsis screen is negative. Risk Assessment: Do you want to hurt yourself or someone else? Patient reports no desire to harm self or others. Onset of symptoms is unknown. Care prior to arrival: Medication(s) given: Albuterol Neb x 1, Atrovent Neb x 1. Activity prior to arrival: incontinence. Transition of care: patient was not received from another setting of care. 00:37 Method Of Arrival: EMS: [facility] 3 00:37 Acuity: ABHISHEK 3 ll3 Triage Assessment: 00:41 General: Appears uncomfortable, Behavior is cooperative, anxious. Pain: Denies pain. ll3 Cardiovascular: Patient's skin is warm and dry. Rhythm is sinus bradycardia. Respiratory: Reports shortness of breath at rest on exertion since 2-3 months, states got worse tonight Respiratory effort is labored, Respiratory pattern is hyperventilation. Derm: Skin is pink, warm \T\ dry. Musculoskeletal: Reports C/o generalized weakness X 2-3 months. Historical: - Allergies: 00:41 Iodine; ll3 00:41 PENICILLINS; ll3 - Home Meds: 00:41 atorvastatin 20 mg oral tab 1 tab once daily [Active]; Prednisone Oral 2 times per day ll3 [Active]; sotalol 80 mg Oral tab 1 tab 2 times per day [Active]; Xarelto 20 mg oral tab 1 tab once daily [Active]; aspirin 81 mg Oral tab daily [Active]; - Immunization history:: Client reports receiving the 2nd dose of the Covid vaccine. - Social history:: Smoking status: Patient reports the use of cigarette tobacco products, smokes one pack cigarettes per day. Screenin:53 [facility] ED Fall Risk Assessment (Adult) History of falling in the last 3 months, ll3 including since admission No falls in past 3 months (0 pts) Confusion or Disorientation No (0 pts) Intoxicated or Sedated No (0 pts) Impaired Gait No (0 pts) Mobility Assist Device Used No (0 pt) Altered Elimination No (0 pt) Score/Fall Risk Level 0 - 2 = Low Risk Oriented to surroundings, Maintained a safe environment, Educated pt \T\ family on fall prevention, incl call for assistance when getting out of bed, Assessed \T\ reinforced patient's understanding of fall precautions, Provided non-skid footwear. Humpty Dumpty Scale Fall Assessment Tool (age< 18yrs) Age 13 years and above (1 pt). Abuse screen: Denies threats or abuse. Denies injuries from another. Nutritional screening: No deficits noted. Tuberculosis screening: No symptoms or risk factors identified. Fall Risk No fall in past 12 months (0 pts). No secondary diagnosis (0 pts). IV access (20 points). Ambulatory Aid- None/Bed Rest/Nurse Assist (0 pts). Gait- Weak (10 pts.). Mental Status- Oriented to own ability (0 pts). Total Lazar Fall Scale indicates Low Risk Score (25-44 pts). Fall prevention measures have been instituted. Side Rails Up X 2 Placed close to Nursing Station Family Present and informed to notify staff if they need to leave bedside As available Patient and Family Educated on Fall Prevention Program and strategies. Assessment: 00:45 General: See triage assessment. ll3 02:00 Reassessment: No changes from previously documented assessment. Patient and/or family ll3 updated on plan of care and expected duration. Pain level reassessed. 02:55 Reassessment: [phone] Ronald (son). ll3 03:00 Reassessment: No changes from previously documented assessment. Patient and/or family ll3 updated on plan of care and expected duration. Pain level reassessed. Vital Signs: 00:37 BP 114 / 37; Pulse 65; Resp 27; Temp 97.1(TE); Pulse Ox 92% on R/A; Weight 52.16 kg ll3 (R); Height 5 ft. 4 in. (162.56 cm) (R); 02:18 BP 122 / 42; Pulse 64; Resp 22; Pulse Ox 100% on 2 lpm NC; ll3 03:55 BP 117 / 39; Pulse 62; Resp 16; Pulse Ox 100% on 2 lpm NC; ll3 00:37 Body Mass Index 19.74 (52.16 kg, 162.56 cm) ll3 ED Course: 07/13 23:58 Patient arrived in ED. sb4 23:59 Aris Richards PA is PHCP. cp 23:59 Juan Jose Rodriguez MD is Attending Physician. cp 07/14 00:20 Initial lab(s) drawn, by me, sent to lab. Inserted saline lock: 22 gauge in right hand, ll3 using aseptic technique. Blood collected. 00:41 Triage completed. ll3 00:41 Arm band placed on Patient placed in an exam room, on a stretcher, on oxygen, on ll3 bus monitor, on pulse oximetry. 00:47 XRAY Chest (1 view) In Process Unspecified. EDMS 01:18 Notified Nurse Practitioner and/or Physician Warehouse Assistant of a critical lab result(s), INR kl 4.49. 01:45 Inserted saline lock: 20 gauge in left antecubital area, using aseptic technique. Blood oe collected. 01:53 Brendan Gross MD is Hospitalizing Provider. cp 02:51 Chrystal Neri RN is Primary Nurse. ll3 02:54 Patient has correct armband on for positive identification. Placed in gown. Bed in low ll3 position. Call light in reach. Side rails up X2. Adult w/ patient. 02:54 No provider procedures requiring assistance completed. ll3 04:35 Patient admitted, IV remains in place. ll3 Administered Medications: 00:30 Drug: SOLU-Medrol (methylPrednisoLONE) 125 mg Route: IVP; Site: right hand; ll3 04:37 Follow up: Response: No adverse reaction ll3 00:37 Drug: Aspirin Chewable Tablet 324 mg Route: PO; ll3 04:37 Follow up: Response: No adverse reaction ll3 00:55 Drug: NS 0.9% 500 ml Route: IV; Rate: bolus; Site: right hand; ll3 01:48 Follow up: Response: No adverse reaction; IV Status: Completed infusion; IV Intake: ll3 500ml 01:48 Drug: Albuterol - atroVENT (ipratropium) (3:1) (2.5 mg - 0.5 mg) 3 ml Route: Nebulizer; ll3 04:37 Follow up: Response: No adverse reaction ll3 02:17 Drug: ProTONIX (pantoprazole) 40 mg Route: IVP; Site: right hand; ll3 04:36 Follow up: Response: No adverse reaction ll3 02:18 Drug: ProTONIX (pantoprazole) 8 mg/hr Route: IV; Rate: 25 ml/hr; Site: right hand; ll3 02:51 Drug: Rocephin (cefTRIAXone) 1 grams Route: IV; Rate: calculated rate; Site: left ll3 antecubital; 04:36 Follow up: Response: No adverse reaction; IV Status: Completed infusion; IV Intake: [id number] Medication: 04:35 VIS not applicable for this client. ll3 Intake: 01:48 IV: 500ml; Total: 500ml. ll3 04:36 IV: 50ml; Total: 550ml. ll3 Outcome: 01:54 Decision to Hospitalize by Provider. cp 04:35 Admitted to Tele accompanied by nurse, accompanied by tech, via stretcher, room 406, ll3 with oxygen, with chart, Report called to YANET Goodwin 04:35 Condition: stable 04:35 Instructed on the need for admit, Demonstrated understanding of instructions. 04:37 Patient left the ED. ll3 Signatures: Dispatcher [employer] EDPilar Henriquez RN RN Aris Aleman PA PA cp Espinosa, Orlando oe Loubet, Lynsea, RN RN ll3 Cora Sousa PA-C PAHarrietC sb4 Corrections: (The following items were deleted from the chart) 02:53 02:51 Inserted saline lock: 22 gauge in right hand, using aseptic technique. Blood ll3 collected. ll3 02:53 02:51 Initial lab(s) drawn, by wa, sent to lab. ll3 ll3
--- NOTE | 2022-07-14 01:54 | EDPHYS ---
Physician Documentation [facility] Name: Ada Ford Age: 76 yrs Sex: Female : 1945 Arrival Date: 07/13/2022 Time: 23:58 Bed 14 Private MD: ED Physician Juan Jose Rodriguez HPI: 07/14 00:05 This 76 yrs old Female presents to ER via EMS with complaints of Shortness Of Breath, cp Weakness. 00:05 The patient has shortness of breath at rest. Onset: The symptoms/episode began/occurred cp gradually, and became worse yesterday. Duration: The symptoms are continuous, and are markedly worse than the original presentation. Associated signs and symptoms: Pertinent positives: general weakness, Pertinent negatives: chest pain, diaphoresis, fever, vomiting. Severity of symptoms: in the emergency department the symptoms are unchanged despite EMS interventions. Son reports patient has had increasing shortness of breath that is worse with exertion over past several weeks. Today, patient became weak after using restroom that she wanted to lay down on ground. Historical: - Allergies: 00:41 Iodine; ll3 00:41 PENICILLINS; ll3 - Home Meds: 00:41 atorvastatin 20 mg oral tab 1 tab once daily [Active]; Prednisone Oral 2 times per day ll3 [Active]; sotalol 80 mg Oral tab 1 tab 2 times per day [Active]; Xarelto 20 mg oral tab 1 tab once daily [Active]; aspirin 81 mg Oral tab daily [Active]; - Immunization history:: Client reports receiving the 2nd dose of the Covid vaccine. - Social history:: Smoking status: Patient reports the use of cigarette tobacco products, smokes one pack cigarettes per day. ROS: 00:10 Constitutional: Negative for body aches, chills, fever, poor PO intake. cp 00:10 Eyes: Negative for injury, pain, redness, and discharge. cp 00:10 ENT: Negative for drainage from ear(s), ear pain, sore throat, difficulty swallowing, difficulty handling secretions. 00:10 Cardiovascular: Negative for chest pain, edema. 00:10 Respiratory: Positive for dyspnea on exertion, shortness of breath, at rest. wheezing, Negative for cough. 00:10 Abdomen/GI: Negative for abdominal pain, vomiting, diarrhea, constipation. 00:10 : Negative for urinary symptoms. 00:10 Neuro: Positive for near syncope, weakness, Negative for altered mental status, headache, syncope. 00:10 All other systems are negative. Exam: 00:15 Constitutional: The patient appears in no acute distress, alert, awake, cp non-diaphoretic, non-toxic, well developed, well nourished. 00:15 Head/Face: Normocephalic, atraumatic. cp 00:15 Eyes: Periorbital structures: appear normal, Conjunctiva: normal, no exudate, no injection, Sclera: no appreciated abnormality, Lids and lashes: appear normal, bilaterally. 00:15 ENT: External ear(s): are unremarkable, Nose: is normal, Mouth: Lips: moist, Oral mucosa: pink and intact, moist, Posterior pharynx: Airway: no evidence of obstruction, patent. 00:15 Neck: ROM/movement: is normal, is supple, without pain, no range of motions limitations, no meningismus. 00:15 Chest/axilla: Inspection: normal. 00:15 Cardiovascular: Rate: normal, Rhythm: regular, Edema: is not appreciated, JVD: is not appreciated. 00:15 Respiratory: the patient does not display signs of respiratory distress, Respirations: shallow respirations, that is mild, Breath sounds: decreased breath sounds, that are moderate, throughout, stridor, is not appreciated, wheezing: that is mild, is heard in the left posterior upper lobe and left posterior lower lobe. 00:15 Abdomen/GI: Inspection: abdomen appears normal, Bowel sounds: active, all quadrants, Palpation: abdomen is soft and non-tender, in all quadrants. 00:15 Back: pain, is absent, ROM is normal. 00:15 Skin: cellulitis, is not appreciated, no rash present. 00:15 Neuro: Orientation: to person, place \T\ time. Mentation: able to follow commands, slow to respond, Motor: moves all fours, general weakness with no focal deficits, Sensation: is normal. 00:27 ECG was reviewed by the Attending Physician. cp Vital Signs: 00:37 BP 114 / 37; Pulse 65; Resp 27; Temp 97.1(TE); Pulse Ox 92% on R/A; Weight 52.16 kg ll3 (R); Height 5 ft. 4 in. (162.56 cm) (R); 02:18 BP 122 / 42; Pulse 64; Resp 22; Pulse Ox 100% on 2 lpm NC; ll3 03:55 BP 117 / 39; Pulse 62; Resp 16; Pulse Ox 100% on 2 lpm NC; ll3 00:37 Body Mass Index 19.74 (52.16 kg, 162.56 cm) ll3 MDM: 01:54 Patient medically screened. cp 01:55 Data reviewed: vital signs, nurses notes, lab test result(s), EKG, radiologic studies, cp plain films. 01:55 Test interpretation: by ED physician or midlevel provider: ECG, plain radiologic cp studies. 07/14 00:00 Order name: Basic Metabolic Panel; Complete Time: 01:17 cp 07/14 01:17 Interpretation: Normal except: NA 134; GFR 65; CA 8.4. cp 07/14 00:00 Order name: CBC with Diff; Complete Time: 02:34 cp 07/14 01:18 Interpretation: Normal except: RBC 3.76; HGB 6.1; HCT 23.0; MCV 61.3; MCH 16.3; MCHC cp 26.5; RDW 21.3; RANJANA% 79.9; LYM% 12.8. 07/14 00:00 Order name: LFT's; Complete Time: 01:17 cp 07/14 01:40 Interpretation: Normal except: BILID 0.3; TP 6.0; ALB 3.0; A/G 1.0. cp 07/14 00:00 Order name: Magnesium; Complete Time: 01:17 cp 07/14 00:00 Order name: NT PRO-BNP; Complete Time: 01:17 cp 07/14 00:00 Order name: PT-INR; Complete Time: 01:40 cp 07/14 01:40 Interpretation: Reviewed. cp 07/14 00:00 Order name: Troponin HS; Complete Time: 01:17 cp 07/14 00:00 Order name: COVID-19/FLU A+B; Complete Time: 01:40 cp 07/14 01:40 Interpretation: Reviewed. cp 07/14 01:02 Order name: CBC Smear Scan; Complete Time: 02:34 EDMS 07/14 01:12 Order name: Type And Screen cp 07/14 01:13 Order name: Urine Microscopic Only; Complete Time: 04:20 cp 07/14 01:24 Order name: PTT, Activated Partial Thromb; Complete Time: 01:40 EDMS 07/14 01:31 Order name: Fresh Frozen Plasma EDNJ 07/14 00:00 Order name: XRAY Chest (1 view) 07/14 00:00 Order name: EKG; Complete Time: 00:01 07/14 00:00 Order name: Cardiac monitoring; Complete Time: 00:25 cp 07/14 00:00 Order name: EKG - Nurse/Tech; Complete Time: 00:25 cp 07/14 00:00 Order name: IV Saline Lock; Complete Time: 00:24 cp 07/14 01:31 Order name: Packed RBC Leukored EDNJ 07/14 02:22 Order name: ABO/RH no charge; Complete Time: 02:34 EDMS 07/14 02:34 Order name: Urine Dipstick-Ancillary; Complete Time: 02:36 EDMS 07/14 02:36 Interpretation: Normal except: UBLD Trace-intact; UNIT Positive; UESTR Trace. 07/14 02:36 Order name: Urine Culture 07/14 00:00 Order name: Labs collected and sent; Complete Time: 00:24 cp 07/14 00:00 Order name: O2 Per Protocol; Complete Time: 00:24 cp 07/14 00:00 Order name: O2 Sat Monitoring; Complete Time: 00:24 07/14 01:13 Order name: Urine Dipstick-Ancillary (obtain specimen); Complete Time: 02:35 cp EC:27 Rate is 57 beats/min. Rhythm is regular. NC interval is normal. QRS interval is normal. cp QT interval is normal. Interpreted by me. Reviewed by me. Administered Medications: 00:30 Drug: SOLU-Medrol (methylPrednisoLONE) 125 mg Route: IVP; Site: right hand; ll3 04:37 Follow up: Response: No adverse reaction ll3 00:37 Drug: Aspirin Chewable Tablet 324 mg Route: PO; ll3 04:37 Follow up: Response: No adverse reaction ll3 00:55 Drug: NS 0.9% 500 ml Route: IV; Rate: bolus; Site: right hand; ll3 01:48 Follow up: Response: No adverse reaction; IV Status: Completed infusion; IV Intake: ll3 500ml 01:48 Drug: Albuterol - atroVENT (ipratropium) (3:1) (2.5 mg - 0.5 mg) 3 ml Route: Nebulizer; ll3 04:37 Follow up: Response: No adverse reaction ll3 02:17 Drug: ProTONIX (pantoprazole) 40 mg Route: IVP; Site: right hand; ll3 04:36 Follow up: Response: No adverse reaction ll3 02:18 Drug: ProTONIX (pantoprazole) 8 mg/hr Route: IV; Rate: 25 ml/hr; Site: right hand; ll3 02:51 Drug: Rocephin (cefTRIAXone) 1 grams Route: IV; Rate: calculated rate; Site: left ll3 antecubital; 04:36 Follow up: Response: No adverse reaction; IV Status: Completed infusion; IV Intake: [id number] Disposition: 05:52 Co-signature as Attending Physician, Juan Jose Rodriguez MD I was available for consultation rn during patient's ER visit. I was consulted after return of results indicating anemia, reviewed case with HARSHA Carter, patient with dark brown stool that was positive for hemoccult testing, no gross blood. Patient on xarelto, I requested FFP and blood to be transfused and admission to hospitalist service with GI consultation.. Disposition Summary: 07/14/22 01:54 Hospitalization Ordered Hospitalization Status: Inpatient Admission cp Provider: Brendan Gross cp Location: Telemetry/[facility]Sur (Inpatient) cp Condition: Fair cp Problem: new cp Symptoms: have improved cp Bed/Room Type: Standard cp Room Assignment: 406(07/14/22 02:23) wm Diagnosis - Anemia, unspecified cp - GI Bleed/ Gastrointestinal hemorrhage, unspecified cp - Weakness cp - Shortness of breath cp Forms: - Medication Reconciliation Form cp - SBAR form cp Signatures: Dispatcher [employer] Juan Jose Jonas MD MD rn Page, Corey, PA PA cp Marsh, Wendy wm Chrystal Neri RN RN ll3 Cora Sousa PA-C PA-C sb4 Corrections: (The following items were deleted from the chart) 01:20 PTT, ACTIVATED+COAG.LAB.BRZ ordered. [facility] 02:23 01:54 cp wm 06:05 05:52 Co-signature as Attending Physician, Juan Jose Rodriguez MD I was available for rn consultation during patient's ER visit. Reviewed case with HARSHA Carter, patient with dark brown stool that was positive for hemoccult testing, no gross blood. Patient on xarelto, I requested FFP and blood to be transfused and admission to hospitalist service with GI consultation.. rn
[2022-07-14] MEDS ORDERED: NA CHLORIDE 0.9% 250 ML ONE ×2 (02:02→08:20)
[2022-07-14] MEDS ORDERED: PANTOPRAZOLE 40 MG INJ ONE (02:02)
[2022-07-14 02:05] LABS: Anisocytosis 1+; Blood Morphology Comment NOTED (NOT SEEN); Hypochromasia 2+; Platelet Estimate ADEQ; Polychromasia 1+; White Blood Cell Scan OK (OK)
--- NOTE | 2022-07-14 02:07 | P.HP ---
Certification for Inpatient Patient admitted to: Inpatient With expected LOS: >2 Midnights Patient will require the following post-hospital care: None Practitioner: I am a practitioner with admitting privileges, knowledge of patient current condition, hospital course, and medical plan of care. Services: Services provided to patient in accordance with Admission requirements found in Title 42 Section 412.3 of the Code of Federal Regulations <Cora Sousa - Last Filed: 07/14/22 03:17> Patient History Date of Service: 07/14/22 Primary Care Provider: Deep Reason for admission: GI Bleed, Anemia History of Present Illness: Patient is a 76-year-old female with past medical history of COPD, hypertension, and atrial fibrillation on Xarelto who presented to the ED with complaints of shortness of breath. Patient reports that she has been feeling weak and short of breath for 2-3 months but it got significantly worse tonight. She states she is so weak she can barely walk. She is notably pale. CBC came back with a hemoglobin of 6.1 and hematocrit of 23. INR 4.49. She last took her Xarelto this evening. Her reports that her stool has been dark. Denies hematemesis. Hemoccult positive. 2 units PRBC and 1 unit FFP ordered and Protonix drip started in ED. She is not currently in afib. She will be admitted for further management. Home medications list reviewed: Yes - Past Medical/Surgical History Diabetic: No -: COPD -: HLD -: A. fib -: total abdominal hysterectomy Psychosocial/ Personal History: Patient lives at home with her son - Family History Family History: Reviewed- Non-Contributory - Social History Smoking Status: Current every day smoker Alcohol use: Yes CD- Drugs: No Caffeine use: No Place of Residence: Home <Cora Sousa - Last Filed: 07/14/22 03:17> Date of Service: 07/14/22 <Brendan Gross - Last Filed: 07/14/22 13:10> Allergies iodine Allergy (Verified 03/26/22 01:59) Hives/Rash Penicillins Allergy (Verified 07/09/16 13:00) Rash mycins Allergy (Uncoded 07/09/16 13:00) Hives/Rash Home Medications: RX: Aspirin [Aspirin EC 81 MG] 81 mg PO DAILY 05/21/16 RX: Atorvastatin Calcium [Lipitor] 40 mg PO BEDTIME 05/21/16 RX: Losartan Potassium [Cozaar*] 50 mg PO DAILY AFTER SUPPER 05/21/16 RX: Multivitamin [Multivitamins] 1 each PO DAILY 05/21/16 RX: Vit A/Vit C/Vit E/Zinc/Copper [Icaps Areds Softgel] 1 each PO DAILY 05/21/16 RX: Brimonidine Tartrate [Alphagan P] 1 drop OP BID 07/09/16 RX: Cholecalciferol (Vitamin D3) [Vitamin D3] 1,000 unit PO DAILY 07/09/16 RX: Dorzolamide HCl/Timolol Maleat [Dorzolamide-Timolol Eye Drops] 1 drop OP BID 07/09/16 RX: Flaxseed Oil 1,000 mg PO DAILY 07/09/16 RX: Magnesium Oxide [Mag 0X*] 400 mg PO DAILY 07/09/16 RX: Fluticasone/Umeclidin/Vilanter [Trelegy Ellipta 100-62.5-25] 1 each IH DAILY 30 Days #30 02/25/22 RX: Fluticasone/Umeclidin/Vilanter [Trelegy Ellipta 200-62.5-25] 1 each IH DAILY #1 02/25/22 RX: Rivaroxaban [Xarelto] 20 mg PO DAILY AT SUPPER 30 Days #30 tab 02/25/22 RX: Sotalol HCl [Betapace*] 80 mg PO BID 30 Days #60 tab 03/26/22 Review of Systems General: Weakness Respiratory: Shortness of Breath <BrownMaria DoloresCora - Last Filed: 07/14/22 03:17> Physical Examination - Physical Exam General: Alert, In no apparent distress, Other (Pale) HEENT: Atraumatic, EOMI, Sclerae nonicteric Neck: Supple, 2+ carotid pulse no bruit Respiratory: Clear to auscultation bilaterally, Normal air movement Cardiovascular: Regular rate/rhythm, Normal S1 S2 Gastrointestinal: Normal bowel sounds, No tenderness Musculoskeletal: No tenderness Integumentary: No rashes Neurological: Normal speech, Normal strength at 5/5 x4 extr, Normal tone, Normal affect - Studies Laboratory Data (last 24 hrs) 07/14/22 01:19: APTT Cancelled 07/14/22 00:20: PT 49.4 H, INR 4.49 H*, APTT 35.7 07/14/22 00:20: WBC 10.00, Hgb 6.1 L*, Hct 23.0 L, Plt Count 212 07/14/22 00:20: Sodium 134 L, Potassium 4.3, BUN 17, Creatinine 0.91, Glucose 105, Magnesium 2.3, Total Bilirubin 0.9, AST 22, ALT 32, Alkaline Phosphatase 70 <Cora Sousa - Last Filed: 07/14/22 03:17> - Studies Laboratory Data (last 24 hrs) 07/14/22 01:19: APTT Cancelled 07/14/22 00:20: PT 49.4 H, INR 4.49 H*, APTT 35.7 07/14/22 00:20: WBC 10.00, Hgb 6.1 L*, Hct 23.0 L, Plt Count 212 07/14/22 00:20: Sodium 134 L, Potassium 4.3, BUN 17, Creatinine 0.91, Glucose 105, Magnesium 2.3, Total Bilirubin 0.9, AST 22, ALT 32, Alkaline Phosphatase 70 <Brendan Gross - Last Filed: 07/14/22 13:10> Assessment and Plan - Problems (Diagnosis) (1) GI bleed Current Visit: Yes Status: Acute Qualifiers: GI bleed type/associated pathology: melena Qualified Code(s): K92.1 - Melena (2) COPD (chronic obstructive pulmonary disease) Current Visit: Yes Status: Chronic Qualifiers: Chronic bronchitis type: unspecified (3) Anemia Current Visit: Yes Status: Acute Qualifiers: Anemia type: other cause Other causes of anemia: acute posthemorrhagic Qualified Code(s): D62 - Acute posthemorrhagic anemia (4) Atrial fibrillation Current Visit: Yes Status: Chronic Qualifiers: Atrial fibrillation type: paroxysmal Qualified Code(s): I48.0 - Paroxysmal atrial fibrillation (5) UTI (urinary tract infection) Current Visit: Yes Status: Acute Qualifiers: Urinary tract infection type: acute cystitis Hematuria presence: without hematuria Qualified Code(s): N30.00 - Acute cystitis without hematuria - Plan Patient is admitted for further management of GI bleed. Continue Protonix drip. Transfuse 2 units PRBC and 1 unit FFP. GI consult. NPO in case for scope. Recheck CBC following transfusion and reassess. Monitor BP closely. Borderline low in ED. Anticipate improvement with blood products. Continue rocephin for UTI. Hold Xarelto. SCDs for VTE prophylaxis. Monitor and replete electrolytes per protocol. Reconcile continue other home medications. Full code. Discharge Plan: Home Plan to discharge in: Greater than 2 days - Advance Directives Does patient have a Living Will: No Does patient have a Durable POA for Healthcare: No - Code Status/Comfort Care Code Status Assessed: Yes Code Status: Full Code Physician Review: Patient Assessed, Agree with Above Assessment and Plan Critical Care: No Time Spent Managing Pts Care (In Minutes): 50 <Cora Sousa - Last Filed: 07/14/22 03:17> Physician Review: Patient Assessed, Agree with Above Assessment and Plan <Brendan Gross - Last Filed: 07/14/22 13:10>
[2022-07-14 02:34] LABS: Urine Blood Trace-intact (Negative); Urine Glucose Negative (Negative); Urine Protein Negative (Negative)
[2022-07-14] MEDS ORDERED: CEFTRIAXONE 1000 MG/VIAL ONE ×2 (02:40→19:49)
[2022-07-14] MEDS ORDERED: NA CHLORIDE 0.9% 50 ML IV ONE (02:41)
[2022-07-14 03:03] LABS: Urine Bacteria 20-50 /HPF (<20); Urine Mucus Slight /HPF (None Seen); Urine RBC None Seen /HPF (None Seen)
[2022-07-14] MEDS ORDERED: ONDANSETRON 4 MG/2 ML VIAL IV PRN (03:03)
[2022-07-14] MEDS ORDERED: PANTOPRAZOLE INJ 80 MG in NA CHLORIDE 0.9% 250 ML IV SCH (03:03)
[2022-07-14] MEDS ORDERED: ACETAMINOPHEN 500 MG TAB PO PRN (03:03)
[2022-07-14] MEDS ORDERED: DIPHENHYDRAMINE 50 MG/ML VIAL IV PRN (04:06)
[2022-07-14] MEDS ORDERED: FUROSEMIDE 20 MG/ 2ML VIAL IV ONE (04:06)
[2022-07-14 04:57] VITALS: BMI 20.2
[2022-07-14 05:19] LABS: Absolute Lymphocytes (CBC) 0.5 K/uL (0.7-4.9); Lymphocytes % 4.9 % (15.3-44.8); MPV 8.2 fL (7.6-11.3); RBC Red Blood Cell Count 2.17 M/uL (3.86-4.86)
[2022-07-14 05:22] LABS: Hematocrit 13.4 % (36.0-45.0)
[2022-07-14 05:23] LABS: MCV 61.7 fL (80-100)
[2022-07-14 05:28] LABS: Magnesium 2.3 mg/dL (1.6-2.4); Phosphorus 3.4 mg/dL (2.5-4.9); Potassium 4.4 mmol/L (3.5-5.1)
[2022-07-14] MEDS ORDERED: ALBUTEROL 2.5 MG/3 ML NEB SOL NEB PRN ×2 (07:30→15:00)
[2022-07-14] MEDS ORDERED: Ringers Lactate 1,000 ML IV ONE (09:29)
[2022-07-14] MEDS ORDERED: EPINEPHRINE/PF 1 MG/ML AMP ONE (09:54)
[2022-07-14] MEDS ORDERED: propofoL 200 MG/20 ML VIAL IV ONE (10:50)
[2022-07-14] MEDS ORDERED: LIDOCAINE 1% MPF 2 ML AMPULE ONE (10:50)
[2022-07-14] MEDS: PANTOPRAZOLE INJ 80 MG in NA CHLORIDE 0.9% 250 ML IV SCH ×2 (12:10→21:35)
[2022-07-14] MEDS: FLUCONAZOLE 200mg IVPB 200 MG/100 ML BAG IV SCH (12:10)
[2022-07-14 12:52] LABS: Hematocrit 28.3 % (36.0-45.0)
[2022-07-14] MEDS ORDERED: Ringers Lactate 1,000 ML IV SCH (14:00)
[2022-07-14] MEDS: Ringers Lactate 1,000 ML IV SCH (14:10)
--- NOTE | 2022-07-14 14:33 | RAD REPORT ---
EXAM DESCRIPTION: RAD - Chest Single View - 07/14/2022 12:46 am CLINICAL HISTORY: 76 years, Female, SOB COMPARISON: None. FINDINGS: Single view of the chest was obtained portable. No prior films are available for compariso n. External EKG leads within the [id number] limits diagnosis. There is hyperinflation. The cardiom ediastinal silhouette demonstrate to be unremarkable. The heart is not enlarged. The thoracic aorta d emonstrate intimal aortic arch calcification. The pulmonary vasculature is normal distribution. Costo phrenic angles are sharp. No areas of consolidation or masses are seen. The rest of the soft tiss ue and bony structures demonstrate to be unremarkable. IMPRESSION: Hyperinflation. No acute cardiopulmonary disease identified. Electronically signed by: Roland Hernández MD 07/14/2022 12:58 AM GENERAL DOC Due to temporary technical issues with the PACS/Fluency reporting system, reports are being signed by the in house radiologists without review as a courtesy to insure prompt reporting. The interpreting radiologist is fully responsible for the content of the report.
--- NOTE | 2022-07-14 15:15 | EKG ---
Test Date: 2022-07-14 Test Time: 00:23:45 Hand Screen Printer: CORY MEASUREMENT RESULTS: Intervals: Rate: 57 KS: 152 QRSD: 74 QT: 466 QTc: 453 [place]: P: 80 KS: 152 QRS: 78 T: 111 INTERPRETIVE STATEMENTS: Sinus bradycardia Right atrial enlargement ST elevation, consider inferior injury or acute infarct ACUTE NC Consider right ventricular involvement in acute inferior infarct Abnormal ECG Compared to ECG 03/25/2022 18:47:46 Atrial abnormality now present ST (T wave) deviation now present Myocardial infarct finding now present Myocardial infarct finding now present Supraventricular tachycardia no longer present Electronically Signed On 07-14-22 15:14:35 SENIOR PARTNER by Pete Salas
[2022-07-14 16:19] LABS: Hematocrit 25.5 % (36.0-45.0)
--- NOTE | 2022-07-14 18:55 | OP ---
Surgeon: Rupesh Dudley MD Procedure Performed: Esophagogastroduodenoscopy. Indication For Procedure: Upper GI bleed. Anesthesia: Monitored anesthesia care. Complexity: Average. Technique: After obtaining informed consent from the patient and explaining risks and complications, which include but are not limited to bleeding, infection, perforation, and anesthesia complications, the patient was placed in a left lateral position and sedation was given. The scope was advanced to the mouth and carefully guided up till the second portion of the duodenum. After the completion of examination, scope and equipment were withdrawn and procedure terminated in a safe manner. Findings: Esophagus: In the whole esophagus from proximal to distal, there was evidence of severe c andida esophagitis. Biopsies were taken. Examination of the stomach revealed mild patchy erythema in the body and antrum along with a small cr ated ulcer in the prepyloric region. This did not seem to be the cause of bleeding. However, ulcer and gastric body biopsies were also taken. Duodenum: The bulb appeared normal. However, in the second portion of the duodenum, there appeared to be either a versus a large AVM that was oozing at the time. The lesion appeared to be just above a submucosal mass lesion, probably a lipoma first. The bleeding was controlled and an abl ation was done of the lesion with bipolar gold probe. Subsequently, a hemostatic clip was placed to ensure eradication of the lesion and to reduce chances of rebleeding. Estimated Blood Loss: Minimal. Complications: None. Tolerance to anesthesia, excellent. 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 Plan: Continue current management, oral. The patient needs to be on PPI. Also will need treatment for candidiasis with fluconazole. Would recommend holding anticoagulation for 7 days, but can resume aspirin. Repeat EGD in around 4 to 6 weeks for followup. US/MODL Voice ID: [id number] Report ID: [id number]
[2022-07-14] MEDS ORDERED: NA CHLORIDE 0.9% 50 ML ONE (19:53)
[2022-07-14] MEDS: CEFTRIAXONE 1,000 MG in NA CHLORIDE 0.9% 50 ML IVPB SCH (20:35)
[2022-07-14 23:10] LABS: Hematocrit 25.5 % (36.0-45.0)
[2022-07-15 04:20] LABS: Hematocrit 24.2 % (36.0-45.0); Lymphocytes % 10.2 % (15.3-44.8); MPV 8.1 fL (7.6-11.3); RBC Red Blood Cell Count 3.24 M/uL (3.86-4.86)
[2022-07-15 04:23] LABS: MCV 74.6 fL (80-100)
[2022-07-15 04:24] LABS: Protime INR 1.9
[2022-07-15 04:38] LABS: Magnesium 2.1 mg/dL (1.6-2.4); Phosphorus 2.6 mg/dL (2.5-4.9); Potassium 3.5 mmol/L (3.5-5.1)
[2022-07-15] MEDS: Ringers Lactate 1,000 ML IV SCH ×2 (07:41→10:00)
[2022-07-15] MEDS: PANTOPRAZOLE INJ 80 MG in NA CHLORIDE 0.9% 250 ML IV SCH ×2 (07:48→17:45)
[2022-07-15] MEDS ORDERED: POTASSIUM 25 MEQ EFFERV TAB PO ONE (09:00)
[2022-07-15] MEDS ORDERED: POTASSIUM CL SA 10 MEQ TAB PO ONE (09:00)
[2022-07-15 11:19] LABS: Hematocrit 24.2 % (36.0-45.0)
[2022-07-15] MEDS: FLUCONAZOLE 200mg IVPB 200 MG/100 ML BAG IV SCH (11:40)
--- NOTE | 2022-07-15 13:15 | P.PN ---
Subjective Date of Service: 07/15/22 Primary Care Provider: Deep Chief Complaint: GI Bleed, Anemia No acute events overnight. EGD was suggestive of angelique esophagitis. She denies dysphagia or odynophagia. No recurrent episodes of melena. Review of Systems 10-point ROS is otherwise unremarkable Gastrointestinal: Melena (improved) Physical Examination - Vital Signs Temperature: 98.4 F Blood Pressure: 141/65 Pulse: 69 Respirations: 16 Pulse Ox (%): 96 - Physical Exam General: Alert, In no apparent distress, Oriented x3 HEENT: Atraumatic, Mucous membr. moist/pink, EOMI, Sclerae nonicteric Neck: JVD not distended Respiratory: Clear to auscultation bilaterally, Normal air movement Cardiovascular: No edema, Regular rate/rhythm, Normal S1 S2, No gallops, No rubs, No murmurs Gastrointestinal: Normal bowel sounds, Soft and benign, Non-distended, No tenderness, No rebound, No guarding Musculoskeletal: No clubbing Integumentary: No rashes Neurological: Normal speech, Cranial nerves 3-12 intact, Normal affect Assessment And Plan - Plan # Acute Blood Loss Anemia suspect due to Acute Upper Gastrointestinal Bleed possibly due to Angelique Esophagitis - Consulted Gastroenterology and spoke with Dr. Dudley - recommendations appreciated - EGD concerning for Angelique esophagitis - Repeat EGD in 4-6 weeks per GI - Type & Screen, now s/p 2 units pRBCs and 1 unit FFP - q6hr H&H - Hgb: 6.1 -> 3.7 -> 9.2 -> 8.4 -> 8.5 -> 7.8 -> 7.6 - Transfuse for Hgb < 7.0 - 2 large bore IVs - Fluconazole 200 mg daily - day 2 of 14 - Continue pantoprazole drip today, plan to transition to PO over the next 1-2 days - IV fluids with Lactated Ringers' at 50 mL/hr # Gram-Negative Urinary Tract Infection - Currently does not meet sepsis criteria - Continue ceftriaxone - Await cultures and sensitivities # Chronic Atrial Fibrillation on Rivaroxaban - Currently in normal sinus rhythm - Hold rivaroxaban x 7 days per Gastroenterology - Revisit timing and necessity of rivaroxaban after 7 days - Will need to discuss with Cardiology # Chronic Obstructive Pulmonary Disease # Dyslipidemia - Resume home meds once verified Brendan Gross M.D.
[2022-07-15 17:45] LABS: Hematocrit 24.2 % (36.0-45.0)
[2022-07-15] MEDS ORDERED: CEFTRIAXONE 1000 MG/VIAL ONE (20:27)
[2022-07-15] MEDS: CEFTRIAXONE 1,000 MG in NA CHLORIDE 0.9% 50 ML IVPB SCH (21:09)
[2022-07-16 00:38] LABS: Hematocrit 23.1 % (36.0-45.0)
[2022-07-16] MEDS: PANTOPRAZOLE INJ 80 MG in NA CHLORIDE 0.9% 250 ML IV SCH ×3 (04:49→23:08)
[2022-07-16 05:55] LABS: Absolute Lymphocytes (CBC) 1.2 K/uL (0.7-4.9); Hematocrit 23.1 % (36.0-45.0); Lymphocytes % 13.5 % (15.3-44.8); MCV 76.5 fL (80-100); MPV 8.2 fL (7.6-11.3); RBC Red Blood Cell Count 3.02 M/uL (3.86-4.86)
[2022-07-16 06:53] LABS: Blood Morphology Comment NOTED (NOT SEEN); Platelet Estimate ADEQ; White Blood Cell Scan OK (OK)
[2022-07-16 06:54] LABS: Anisocytosis 2+
[2022-07-16] MEDS ORDERED: POTASSIUM CL SA 10 MEQ TAB PO ONE (07:39)
[2022-07-16] MEDS: SOD FERRIC GLUC COMPLX/SUCROSE 125 MG in NA CHLORIDE 0.9% 100 ML IV SCH (09:45)
[2022-07-16] MEDS: FLUCONAZOLE 200mg IVPB 200 MG/100 ML BAG IV SCH (13:50)
[2022-07-16 14:59] LABS: Hematocrit 23.9 % (36.0-45.0)
[2022-07-16] MEDS: Levofloxacin 750mg IV 750 MG/150 ML BAG IV SCH (16:02)
--- NOTE | 2022-07-16 17:56 | P.PN ---
Subjective Date of Service: 07/16/22 Primary Care Provider: Deep Chief Complaint: GI Bleed, Anemia No acute events overnight. She reports that she feels generalized weakness, but this is gradually improving. No recurrent episodes of melena. Will try to advance her diet today. Review of Systems 10-point ROS is otherwise unremarkable General: Weakness (generalized) Physical Examination - Vital Signs Temperature: 98.4 F Blood Pressure: 137/60 Pulse: 67 Respirations: 18 Pulse Ox (%): 100 Assessment And Plan - Plan - Physical Exam General: Alert, In no apparent distress, Oriented x3 HEENT: Atraumatic, Mucous membr. moist/pink, EOMI, Sclerae nonicteric Neck: JVD not distended Respiratory: Clear to auscultation bilaterally, Normal air movement Cardiovascular: No edema, Regular rate/rhythm, Normal S1 S2, No gallops, No rubs, No murmurs Gastrointestinal: Normal bowel sounds, Soft and benign, Non-distended, No tenderness, No rebound, No guarding Musculoskeletal: No clubbing Integumentary: No rashes Neurological: Normal speech, Cranial nerves 3-12 intact, Normal affect # Acute Blood Loss Anemia suspect due to Acute Upper Gastrointestinal Bleed possibly due to Angelique Esophagitis - Consulted Gastroenterology and spoke with Dr. 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
[2022-07-17 04:39] LABS: Absolute Lymphocytes (CBC) 0.8 K/uL (0.7-4.9); Hematocrit 24.1 % (36.0-45.0); Lymphocytes % 12.8 % (15.3-44.8); MCV 76.9 fL (80-100); MPV 8.3 fL (7.6-11.3); RBC Red Blood Cell Count 3.13 M/uL (3.86-4.86)
[2022-07-17 04:57] LABS: Potassium 3.9 mmol/L (3.5-5.1)
[2022-07-17] MEDS ORDERED: POTASSIUM CL SA 10 MEQ TAB PO ONE (08:00)
[2022-07-17] MEDS: PANTOPRAZOLE INJ 80 MG in NA CHLORIDE 0.9% 250 ML IV SCH ×2 (09:10→19:00)
[2022-07-17] MEDS: SOD FERRIC GLUC COMPLX/SUCROSE 125 MG in NA CHLORIDE 0.9% 100 ML IV SCH (09:10)
[2022-07-17] MEDS: FLUCONAZOLE 200mg IVPB 200 MG/100 ML BAG IV SCH (12:40)
[2022-07-17] MEDS: Levofloxacin 750mg IV 750 MG/150 ML BAG IV SCH (16:00)
--- NOTE | 2022-07-17 20:19 | P.PN ---
Subjective Date of Service: 07/17/22 Primary Care Provider: Deep Chief Complaint: GI Bleed, Anemia No acute events overnight. She reports that she feels generalized weakness, but this is gradually improving. She appears to be more energetic today compared to yesterday. Encouraged her to work with PT, may require placement. No recurrent episodes of melena. Review of Systems 10-point ROS is otherwise unremarkable General: Weakness (generalized) Physical Examination - Vital Signs Temperature: 98.8 F Blood Pressure: 129/57 Pulse: 83 Respirations: 16 Pulse Ox (%): 98 Assessment And Plan - Plan - Physical Exam General: Alert, In no apparent distress, Oriented x3 HEENT: Atraumatic, Mucous membr. moist/pink, EOMI, Sclerae nonicteric Neck: JVD not distended Respiratory: Clear to auscultation bilaterally, Normal air movement Cardiovascular: No edema, Regular rate/rhythm, Normal S1 S2, No gallops, No rubs, No murmurs Gastrointestinal: Normal bowel sounds, Soft and benign, Non-distended, No tenderness, No rebound, No guarding Musculoskeletal: No clubbing Integumentary: No rashes Neurological: Normal speech, Cranial nerves 3-12 intact, Normal affect # Acute Blood Loss Anemia suspect due to Acute Upper Gastrointestinal Bleed possibly due to Angelique Esophagitis - Consulted Gastroenterology and spoke with Dr. Dudley - recommendations appreciated - EGD concerning for Angelique esophagitis - Repeat EGD in 4-6 weeks per GI - Type & Screen, now s/p 2 units pRBCs and 1 unit FFP - q6hr H&H - Hgb: 6.1 -> 3.7 -> 9.2 -> 8.4 -> 8.5 -> 7.8 -> 7.6 -> 7.7 -> 7.3 -> 7.3 -> 7.5 -> 7.6 - Transfuse for Hgb < 7.0 - 2 large bore IVs - Fluconazole 200 mg daily - day 4 of 14 - Started IV iron replacement - Continue pantoprazole drip today, plan to transition to PO over the next 1-2 days - IV fluids with Lactated Ringers' at 50 mL/hr # Multi-Drug Resistant Klebsiella Pneumoniae Urinary Tract Infection - Currently does not meet sepsis criteria - Switch ceftriaxone to levofloxacin # Chronic Atrial Fibrillation on Rivaroxaban - Currently in normal sinus rhythm - Hold rivaroxaban x 7 days per Gastroenterology - Revisit timing and necessity of rivaroxaban after 7 days - Will need to discuss with Cardiology # Chronic Obstructive Pulmonary Disease # Dyslipidemia - Resume home meds once verified # Deconditioning - Consult PT Brendan Gross M.D.
[2022-07-18 04:58] LABS: Hematocrit 24.3 % (36.0-45.0)
[2022-07-18] MEDS ORDERED: PANTOPRAZOLE 40MG TABLET PO SCH (07:30)
[2022-07-18] MEDS: SOD FERRIC GLUC COMPLX/SUCROSE 125 MG in NA CHLORIDE 0.9% 100 ML IV SCH (09:28)
[2022-07-18 09:38] VITALS: O2SAT 98
[2022-07-18 12:12] VITALS: BP 130/59; TEMP 98.8
[2022-07-18] MEDS: FLUCONAZOLE 200mg IVPB 200 MG/100 ML BAG IV SCH (12:50)
--- NOTE | 2022-07-18 13:37 | P.DS ---
Admission Date: 07/14/22 Discharge Date: 07/18/22 Primary Care Provider: Deep Disposition: DC HOME/HOME HEALTH CARE Discharge Condition: GOOD Reason for Admission: GI Bleed, Anemia Consultations: 1. 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 Ada Ford is a pleasant 76 year old female with a past medical history significant for chronic atrial fibrillation on rivaroxaban, chronic obstructive pulmonary disease, and dyslipidemia who was admitted to the [facility] on 07/14/2022 for melena. She was admitted to the Medicine service. Upon further evaluation, she was found to have acute blood loss anemia thought to be secondary to an acute upper gastrointestinal bleed. Gastroenterology was consulted and she was evaluated by Dr. Dudley. She underwent an esophagogastroduodenoscopy, which revealed, "duodenal angiodysplasia with bleeding, questionable duodenal lipoma, gastric ulcer, gastritis, and esophageal candidiasis." He has cleared her for discharge with 14 days of fluconazole, hold rivaroxaban, and a follow-up esophagogastroduodenoscopy in 4-6 weeks. In regards to her rivaroxaban, she will follow-up with Dr. Alarcon next week to discuss the risks and benefits of systemic anticoagulation in her case. In addition to the above findings, she was noted to have a multi-drug resistant Klebsiella Pneumoniae urinary tract infection. She was started on levofloxacin per urine culture sensitivities and responded well. She was evaluated by PT due to concerns for deconditioning. PT recommended that she discharged home with home health. With the assistance of case management, she was approved for [facility]. On 07/18/2022, she was seen on rounds and deemed medically stable for discharge. She was discharged with instructions to schedule follow-up appointments with her PCP (Dr. Adame), with Gastroenterology (Dr. Dudley), and with Cardiology (Dr. Alarcon). She was provided prescriptions for levofloxacin, fluconazole, and pantoprazole. Repeat EKG at discharge revealed a QTc interval of 432 msec and no STEMI criteria. She and her son (Mr. Cardenas) were given the opportunity to ask questions and reported no further questions. Furthermore, all questions were answered to the best of my ability. A copy of this discharge summary will be sent to the above providers to facilitate continuity of care. Today, I personally spent 35 minutes on her case, of which greater than 50% of the time was spent in patient education, counseling, and coordination of care as described above. - Physical Exam General: Alert, In no apparent distress, Oriented x3 HEENT: Mucous membr. moist/pink, Sclerae nonicteric Neck: JVD not distended Respiratory: Clear to auscultation bilaterally, Normal air movement Cardiovascular: No edema, Regular rate/rhythm, Normal S1 S2, No gallops, No rubs, No murmurs Gastrointestinal: Normal bowel sounds, Soft and benign, Non-distended, No tenderness, No rebound, No guarding Musculoskeletal: No clubbing Integumentary: No rashes Neurological: Normal speech, Normal affect Vital Signs/Physical Exam: Temp Pulse Resp BP Pulse Ox 98.8 F 80 14 130/59 L 98 07/18/22 12:00 07/18/22 12:00 07/18/22 12:00 07/18/22 12:00 07/18/22 12:00 Laboratory Data at Discharge: WBC 6.50 K/uL (4.3-10.9) 07/17/22 04:07 Hgb 7.6 g/dL (12.0-15.0) L 07/18/22 04:51 Hct 24.3 % (36.0-45.0) L 07/18/22 04:51 Plt Count 138 K/uL (152-406) L 07/17/22 04:07 PT 20.9 SECONDS (9.5-12.5) H 07/15/22 03:47 INR 1.90 07/15/22 03:47 APTT Cancelled 07/14/22 01:19 Sodium 140 mmol/L (136-145) 07/17/22 04:07 Potassium 3.9 mmol/L (3.5-5.1) 07/17/22 04:07 BUN 9 mg/dL (7-18) 07/17/22 04:07 Creatinine 0.67 mg/dL (0.55-1.02) 07/17/22 04:07 Glucose 81 mg/dL (74-106) 07/17/22 04:07 Phosphorus 2.6 mg/dL (2.5-4.9) 07/15/22 03:47 Magnesium 2.1 mg/dL (1.6-2.4) 07/15/22 03:47 Total Bilirubin 0.9 mg/dL (0.2-1.0) 07/14/22 00:20 AST 22 U/L (15-37) 07/14/22 00:20 ALT 32 U/L (13-56) 07/14/22 00:20 Alkaline Phosphatase 70 U/L (45-117) 07/14/22 00:20 Home Medications: Aspirin [Aspirin EC 81 MG] 81 mg PO DAILY 05/21/16 Atorvastatin Calcium [Lipitor] 40 mg PO BEDTIME 05/21/16 Fluticasone/Umeclidin/Vilanter [Trelegy Ellipta 100-62.5-25] 1 each IH DAILY 30 Days #30 02/25/22 Sotalol HCl [Betapace*] 80 mg PO BID 30 Days #60 tab 03/26/22 Albuterol Neb [Proventil 0.083% Neb Soln] 1 amp NEB BID PRN 07/14/22 predniSONE [Prednisone] 1 tab PO BID 07/14/22 Fluconazole 200 mg PO DAILY 9 Days #9 tab 07/18/22 Pantoprazole Sodium [Protonix] 40 mg PO BID #60 tab 07/18/22 levoFLOXacin [Levaquin] 750 mg PO DAILY 5 Days #5 tab 07/18/22 New Medications: Fluconazole 200 mg PO DAILY 9 Days #9 tab levoFLOXacin [Levaquin] 750 mg PO DAILY 5 Days #5 tab Pantoprazole Sodium [Protonix] 40 mg PO BID #60 tab Physician Discharge Instructions: 1. Please call and schedule a follow-up appointment with your PCP (Dr. Adame) in 3-5 days 2. Please call and schedule a follow-up appointment with your Framing Mechanic (Dr. Alarcon) in 5-7 days - You will need to discuss the risks and benefits of you restarting your blood thinner (Xarelto) now that you have had a digestive tract bleed 3. Please call and schedule a follow-up appointment with your Mortgage Protection Sales (Dr. Dudley) in 1 week - You will need to reschedule an upper endoscopy in 4-6 weeks Please avoid all cxiw-mun-fzeadqn anti-inflammatory medications (ibuprofen, naproxen, Motrin, Advil, Aleve, etc.). It is safe to take Tylenol (acetaminophen) - if needed, take 650 mg every 6 hours as needed. Please make sure to never take more than 3000 mg within a 24-hour period. Followup: Castillo Alarcon MD [ACTIVE - CAN ADMIT] - Rupesh Dudley MD [ACTIVE - CAN ADMIT] - Justice Adame MD [ACTIVE - CAN ADMIT] - Time spent managing pt's care (in minutes): 35
--- NOTE | 2022-07-18 17:24 | EKG ---
Test Date: 2022-07-18 Test Time: 14:12:46 Active Directory Architect: MIRA MEASUREMENT RESULTS: Intervals: Rate: 74 NC: 164 QRSD: 80 QT: 390 QTc: 432 Drummond: P: 75 NC: 164 QRS: 61 T: 65 INTERPRETIVE STATEMENTS: Normal sinus rhythm Normal ECG Compared to ECG 07/14/2022 00:23:45 Sinus bradycardia no longer present Atrial abnormality no longer present ST (T wave) deviation no longer present Myocardial infarct finding no longer present Myocardial infarct finding no longer present Electronically Signed On 07-18-22 17:24:02 GYM INSTRUCTOR by Pete Salas
== END 2022-07-18 15:05 | disposition home health service (06) | DRG 378 ==
LOC: ER 23:57 → ERHOLD 07-14 02:03 → 4TH 07-14 02:34
PROVIDERS: ADMIT Internal Medicine; ATTEND Internal Medicine
PROC: 0DB58ZX Excision of Esophagus, Via Natural or Artificial Opening Endoscopic, Diagnostic (ICD-10-PCS; 2022-07-14)
PROC: 30233P1 Transfusion of Nonautologous Frozen Red Cells into Peripheral Vein, Percutaneous Approach (ICD-10-PCS; 2022-07-14)
PROC: 30233N1 Transfusion of Nonautologous Red Blood Cells into Peripheral Vein, Percutaneous Approach (ICD-10-PCS; 2022-07-14)
PROC: 0W3P8ZZ Control Bleeding in Gastrointestinal Tract, Via Natural or Artificial Opening Endoscopic (ICD-10-PCS; principal; 2022-07-14 09:45)
PROC: 0DB68ZX Excision of Stomach, Via Natural or Artificial Opening Endoscopic, Diagnostic (ICD-10-PCS; 2022-07-14 09:45)
DX: K31.811 Angiodysplasia of stomach and duodenum with bleeding (principal); B37.81 Candidal esophagitis; D62 Acute posthemorrhagic anemia; N30.00 Acute cystitis without hematuria; Z16.24 Resistance to multiple antibiotics; K29.70 Gastritis, unspecified, without bleeding; I10 Essential (primary) hypertension; E78.5 Hyperlipidemia, unspecified; I48.0 Paroxysmal atrial fibrillation; D17.79 Benign lipomatous neoplasm of other sites; J44.9 Chronic obstructive pulmonary disease, unspecified; K25.9 Gastric ulcer, unspecified as acute or chronic, without hemorrhage or perforation; F17.210 Nicotine dependence, cigarettes, uncomplicated; B96.1 Klebsiella pneumoniae [K. pneumoniae] as the cause of diseases classified elsewhere; Z88.0 Allergy status to penicillin; Z88.8 Allergy status to other drugs, medicaments and biological substances; Z79.52 Long term (current) use of systemic steroids; Z79.01 Long term (current) use of anticoagulants; Z79.82 Long term (current) use of aspirin; Z79.899 Other long term (current) drug therapy; Z90.710 Acquired absence of both cervix and uterus; Z20.822 Contact with and (suspected) exposure to COVID-19
CPT/HCPCS: 0240U; 36415; 36430; 71045; 80048; 80076; 81003; 81015; 83735; 83880; 84100; 84484; 85014; 85018; 85025; 85610; 85730; 86850; 86900; 86901; 87077; 87086; 87088; 87186; 88305; 88312; 93005; 94640; 94760; 96361; 96365; 96366; 96375; 97161; 97530; 99285; C9113; J0171; J1450; J1940; J2704; J2916; J2930; J7040; J7050; J7120; J7613; J7644; P9016; P9059

== ENCOUNTER 2022-08-29 09:38 | Inpatient (IN) | payer OTHER ==
--- OUTSIDE RECORDS SUMMARY | 2022-08-29 09:46 | XMS REPORT | Continuity of Care Document ---
:1945 Author Organization [facility] t Address [address] [place] [address] Care Team Providers Name Role Phone MYNOR MONROE Primary Care Physician Unavailable JOES LIGHT Attending Clinician Unavailable JOSE LIGHT Admitting Clinician Unavailable Payers Payer Name Policy Type Policy Number Effective Date Expiration Date S jt [employer] MEDICARE O [id number] 2018 POS PPO 00:00:00 Problems Condition Condition Condition Status Onset Resolution Last Treating Co mments Source Name Details Category Date Date Treatment Clinician Date Symptomati Symptomati Disease Active [facility]: Me dical asis asis 00 [facility] Essential Essential Disease Active [facility] hypertensi hypertensi 6-26 Mariana kes on on 00:00: Medical 00 [place] Mixed Mixed Disease Active [facility] hyperlipid hyperlipid -26 Mariana kes emia emia 00:00: Medical 00 Center Panlobular Panlobular Disease Active [facility] emphysema emphysema -26 [facility] 00:00: Medical 00 [place] Biliary Biliary Disease Active [facility] colic [...] 01-12 [facility] 00:00: Medical 00 [place] Social History Social Habit Start Date Stop Date Quantity Comments Source History SDOH Alcohol [facility] St[facility] Drinks [facility] History SDOH Alcohol [facility] Binge [facility] History SDOH Alcohol [facility] Comment [facility] Alcohol intake 2019-01-17 2019-01-17 .14 /d [facility] Mallika es 00:00:00 00:00:00 [facility] History SDOH Alcohol 2019-01-12 2019-01-[address] [facility] Frequency 00:00:00 00:00:00 [facility] Cigarettes smoked 2019-01-12 2019-01-[address] [facility] current (pack per 00:00:00 00:00:00 [facility] Center day) - Reported Cigarette pack-years 2019-01-12 2019-01-[address] [facility] 00:00:00 00:00:00 [facility] Tobacco use and 2019-01-12 2019-01-[address] [facility] Mariana kes exposure 00:00:00 00:00:00 [facility] Sex Ass[birth year] [facility] Mariana kes 00:00:00 00:00:00 [facility] Smoking Status Start Date Stop Date Source Current every day smoker 2019-01-12 00:00:00 [facility] kes [facility] Medications Ordered Filled Start Stop Current Ordering Indication Dosage Frequency Signature Comments Components Source Medication Medication Date Date Medication? Clinician (SIG) Name Name atorvastati Yes 40mg QD Take [address] n (LIPITOR) 6-25 by mouth Luke s 40 MG 16:38: daily. Medical tablet 47 [place] losartan Yes 100mg QD Take [address] (COZAAR) 6-25 mg by [facility]ukes 100 MG 16:38: mouth Medical tablet 47 daily. [place] alendronate Yes 70mg Take 70 mg [facility] [...] 6-25 by mouth [facility] tablet 16:38: daily. [address] mv-mn/iron/ 2019-0 Yes Take by [facility] folic 6-25 mouth. [facility] acid/herb 16:38: Medical [address] [place] [address] (VITAMIN D3 COMPLETE ORAL) omega-3 Yes 2g Q.5D Take [address] fatty 6-25 by mouth 2 [facility] acids-fish 16:38: (two) Medica l oil 47 times Center 340-1,000 daily. mg Cap per capsule FLAXSEED Yes Take by [facility] ORAL 6-25 mouth. [facility] 16:38: [address] vit A/vit Yes Take by CHI [...] 6-25 [facility] ry 16:38: Medical Medication 47 [place] atorvastati Yes 40mg QD Take [address] n (LIPITOR) 6-25 by mouth Luke s 40 MG 16:38: daily. Medical tablet 47 [place] losartan 0 Yes 100mg QD Take [address] (COZAAR) 6-25 mg by [facility]ukes 100 MG 16:38: mouth Medical tablet 47 daily. [place] alendronate Yes 70mg Take 70 mg [facility] [...] 6-25 by mouth [facility] tablet 16:38: daily. [address]iron/ 2019 Yes Take by [facility] folic 6-25 mouth. [facility] acid/herb 16:38: Medical 190 Center (VITAMIN D3 COMPLETE ORAL) omega-3 Yes 2g Q.5D Take [address] fatty 6-25 by mouth 2 [facility] acids-fish 16:38: (two) Medica l oil 47 times Center 340-1,000 daily. mg Cap per capsule FLAXSEED Yes Take by [facility] ORAL 6-25 mouth. [facility] 16:38: [address] vit A/vit Yes Take by CHI [...] Non-Formula 6-25 [facility] ry 16:38: Medical Medication [address] [place] [address] atorvastati Yes 40mg QD Take [address] [facility] (LIPITOR) 6-25 by mouth Luke s 40 MG 16:38: daily. Medical tablet [address] [place] [address] losartan Yes 100mg QD Take [address] (COZAAR) 6-25 mg by Lukes 100 MG 16:38: mouth Medical tablet 47 daily. [place] alendronate Yes 70mg Take 70 mg [facility] [...] 6-25 by mouth [facility] tablet 16:38: daily. [address]/iron/ Yes Take by [facility] folic 6-25 mouth. [facility] acid/herb 16:38: Medical 190 47 Center (VITAMIN D3 COMPLETE ORAL) omega-3 2018- Yes 2g Q.5D Take [address] fatty 6-25 by mouth 2 [facility] acids-fish 16:38: (two) Medica l oil 47 times Center 340-1,000 daily. mg Cap per capsule FLAXSEED Yes Take by [facility] ORAL 6-25 mouth. [facility] 16:38: Medical Center vit A/vit 2019 Yes Take by [...] Planned Date Details Comments Source Future Scheduled 2022-07-[address] [facility] Test 00:00:00 (12+) [code = Medical Center DEPRESSION SCREENING (12+)] Future Scheduled 2022-07-[address] F[address]S [address] SCREENING [facility] Test 00:00:00 [code = FALLS RISK Medical C enter SCREENING] Future Scheduled 2022-03-26 INFLUENZA VACCINE (#1) C [...] HEPATITIS C Medical Center SCREENING] Future Scheduled [address] [facility] Test 00:00:00 [facility]ing [facility] Medical Cente r Screening (12+) [code = Tobacco Cessation Counseling and Screening (12+)] Future Scheduled [address] [...] DXA [facility] Test 00:00:00 SCAN] [facility] Center Future Scheduled 1945 DXA SCAN [code = DXA [facility] Test 00:00:00 SCAN] [facility] Center Future Scheduled 1945 DXA SCAN [code = DXA [facility] Test 00:00:00 SCAN] [facility] Center Encounters Start End Encounter Admission Attending Care Care Encounter Source Date/Time Date/Time Type Type Clinicians Facility Department ID 2019-09-05 2019-09-05 Outpatient VINCENT LIGHT, [facility] [id number] SLE 00:00:00 00:00:00 JOSE Results Test Description Test Time Test Comments Results Result [facility] e Comments MR, ABDOMEN, WITH 2019-09-12 FINAL REPORT PATIENT 18:04:00 ID: [id number] MRI of the abdomen dated September 12, [...] MDReport Verified Date/Time: 09/12/2019 18:04:45 Reading Location: [facility] C013Y CT Body Reading Room -CREATININE 2019-09-12 12:27:00 Test Item Value Reference Range Interpretation Comme nts POC-CREATININE (BEAKER) (test 0.8 mg/dL 0.6-1.3 TESTED AT [facility] 6720 code = 1859) [facility] [address] POC-EGFR (BEAKER) (test code = 70 mL/min/1.73M2 1860) TISSUE [id number] 18:27:00Surgical Pathology Report Case: [id number] Authorizing Provider: Jose Light MD Collected: 01/17/2019 1219 Ordering Location: [facility] Received: 01/17/2019 1329 SERVICES Pathologist: Megan Aguillon MD Specimen: Gallbladder GALLBLADDER, CHOLECYSTECTOMY: - FOCAL INTESTINAL METAPLASIA - CHRONIC CHOLECYSTITIS WITH CHOLELITHIASIS - ONE BENIGN REACTIVE LYMPH NODE Signing Pathologist Direct Phone Line: [phone] signed by Megan Aguillon MD on 01/19/2019 at 6:27 [id number] of bile duct without cholangitis or biliary obstruction Gallbladder The specimen consists of anintact gallbladder in a plastic bag in formalin measuring 4.5 cm in length with a maximum diameter of 2.5 cm. The specimen oozes a lbhpf-rjump-okjvon bile of normal viscosity on compression. The [...] the fundus wall is A2. TMW/ewPerformed.MR, ABDOMEN, [id number] 16:32:00FINAL REPORT INDICATION:Pancreas mass. COMPARISON: None. TECHNIQUE: [...] MDReport Verified Date/Time: 01/13/2019 16:32:06 Reading Location: [facility] Diagnostic Imaging Reading Room - [place] [address] [id number] 13:49:00 Test Item Value Reference Range Interpretation Comments SODIUM (BEAKER) (test code = 381) 134 meq/L 136-145 L POTASSIUM (BEAKER) (test code = 4.2 meq/L 3.5-5.1 379) CHLORIDE (BEAKER) (test code = 382) 102 meq/L 98-107 CO2 (BEAKER) (test code = 355) 26 meq/L 22-29 [id number] 13:49:00 Test Item Value Reference Range Interpretation Comments GLUCOSE RANDOM ([facility]) (test code = 79 mg/dL 70-105 652) BUN AND [id number] 13:49:00 Test Item Value Reference Range Interpretation Comments BLOOD UREA NITROGEN 9 mg/dL - ([facility]) (test code = 354) CREATININE ([facility]) 0.79 mg/dL 0.57-1.25 (test code = 358) EGFR ([facility]) (test 71 mL/min/1.73 ESTIMA AZAR GFR IS code = 1092) sq m NOT ACCURATE CREATININE CLEARANCE IN PREDICTING GLOMERULAR FILTRATION RATE . ESTIMATED GFR I S NOT APPLICABLE FOR DIALYSIS PATIEN TS. [id number] 13:21:00 Test Item Value Reference Range Interpretation Comments HEMOGLOBIN ([facility]) (test code = 12.8 GM/DL 11.2-15.7 410) [id number] 10:48:00 Test Item Value Reference Range Interpretation Comments POC-CREATININE 0.8 mg/dL 0.6-1.[address] [facility] ([facility] (test 274 [facility] code = 1859) [facility] 7703 0 POC-EGFR 70 mL/min/1.73M2 ([facility]) (test code = 1860)
[2022-08-29] MEDS ORDERED: METHYLPREDNISOLONE 125 MG INJ ONE (10:01)
[2022-08-29] MEDS ORDERED: MAGNESIUM SULFATE 1 gm IVPB 1 GM/100 ML BAG IV ONE (10:01)
[2022-08-29] MEDS ORDERED: LEVALBUTEROL 1.25 MG/3 ML NEB ONE (10:01)
[2022-08-29 10:47] LABS: Absolute Lymphocytes (CBC) 1.3 K/uL (0.7-4.9); Hematocrit 41.5 % (36.0-45.0); Lymphocytes % 3.8 % (15.3-44.8); MPV 8.3 fL (7.6-11.3); RBC Red Blood Cell Count 5.06 M/uL (3.86-4.86)
--- NOTE | 2022-08-29 10:51 | RAD REPORT ---
EXAM DESCRIPTION: Monalisa Single View08/29/2022 10:15 am CLINICAL HISTORY: Chest pain COMPARISON: 2021 FINDINGS: The lungs are hyperaerated. The lungs appear clear of acute infiltrate. The heart is normal size IMPRESSION: No acute abnormalities displayed
[2022-08-29 10:58] LABS: Protime INR 1.12
[2022-08-29 11:09] LABS: Albumin 2.4 g/dL (3.4-5.0); Bilirubin Direct 0.3 mg/dL (0-0.2); Bilirubin Total 0.9 mg/dL (0.2-1.0); Magnesium 1.8 mg/dL (1.6-2.4); Potassium 4.6 mmol/L (3.5-5.1); Protein, Total 6.7 g/dL (6.4-8.2); Troponin High Sensitivity 10.7 pg/mL (<58.9)
[2022-08-29 11:15] LABS: Blood Morphology Comment NOT SEEN (NOT SEEN); Platelet Estimate ADEQ
--- NOTE | 2022-08-29 11:45 | RAD REPORT ---
EXAM DESCRIPTION: CT - Thorax Wo Con - 08/29/2022 11:28 am CLINICAL HISTORY: sob/chest pain COMPARISON: none TECHNIQUE: Computed axial tomography of the chest was obtained. Contrast was not requested. All CT scans are performed using dose optimization technique as appropriate and may include automated exposure control or mA/KV adjustment according to patient size. FINDINGS: The evaluation of mediastinum, joaquim and vessels is limited secondary to lack of IV contras t administration. Moderate COPD. Mild patchy alveolar opacities lingula, right and left lower lobes. Mild tree-in-bud opacities left l ower lobe. Several borderline enlarged mediastinal lymph nodes A pleural effusion is not present. No pericardial effusion IMPRESSION: Moderate COPD Mild bilateral pneumonia Several borderline enlarged mediastinal lymph nodes most likely reactive in nature. Followup CT chest could be obtained in 6 months to assess stability
[2022-08-29] MEDS ORDERED: Levofloxacin 750mg IV 750 MG/150 ML BAG IV ONE (11:54)
[2022-08-29] MEDS ORDERED: CEFAZOLIN SODIUM 1 GM/VIAL ONE (11:59)
[2022-08-29] MEDS ORDERED: NA CHLORIDE 0.9% 100 ML ONE (11:59)
[2022-08-29] MEDS ORDERED: NA CHLORIDE 0.9% 250 ML ONE (12:08)
[2022-08-29] MEDS ORDERED: VANCOMYCIN 1 GM/VIAL ONE (12:08)
[2022-08-29 12:09] LABS: SARS-COV-2 RT PCR NEGATIVE (NEGATIVE)
--- NOTE | 2022-08-29 12:23 | ER ---
Nurse's Notes [facility] Name: Ada Ford Age: 77 yrs Sex: Female : 1945 Arrival Date: 08/29/2022 Time: 09:40 Bed 8 Private MD: Diagnosis: Pneumonia;Hypoxia Presentation: 08/29 09:51 Chief complaint: Patient states: pain in right lower rib area and SOb since yesterday , iw was d/c from hospital in June , had thrush and anemia and a bleeding ulcer , has home health and was doing well up until a day or two ago. Coronavirus screen: Client presents with at least one sign or symptom that may indicate coronavirus-19. Ebola Screen: Patient negative for fever greater than or equal to 101.5 degrees Fahrenheit, and additional compatible Ebola Virus Disease symptoms Patient denies exposure to infectious person. Patient denies travel to an Ebola-affected area in the 21 days before illness onset. No symptoms or risks identified at this time. Initial Sepsis Screen: Does the patient meet any 2 criteria? RR > 20 per min. Does the patient have a suspected source of infection? No. Patient's initial sepsis screen is negative. Risk Assessment: Do you want to hurt yourself or someone else? Patient reports no desire to harm self or others. Onset of symptoms was August 28, 2022. 09:51 Method Of Arrival: Wheelchair iw 09:51 Acuity: ABHISHEK 3 iw Historical: - Allergies: 09:53 Iodine; iw 09:53 PENICILLINS; iw - Home Meds: 09:53 sotalol 80 mg Oral tab 1 tab 2 times per day [Active]; atorvastatin 20 mg oral tab 1 iw tab once daily [Active]; prednisone 10 mg Oral tab once daily [Active]; albuterol sulfate 2.5 mg /3 mL (0.083 %) Nebulizer nebu [Active]; Trelegy Ellipta 100-62.5-25 mcg inhalation dsdv 1 puff once daily [Active]; - PMHx: 09:53 Atrial fibrillation; Hypercholesterolemia; Chronic obstructive lung disease; iw - PSHx: 09:53 Total abdominal hysterectomy; iw - Immunization history:: Adult Immunizations up to date. - Social history:: Smoking status: Patient denies any tobacco usage or history of. Screenin:48 Abuse screen: Denies threats or abuse. Nutritional screening: No deficits noted. ll1 Tuberculosis screening: No symptoms or risk factors identified. 14:25 [facility] ED Fall Risk Assessment (Adult) Score/Fall Risk Level 0 - 2 = Low Risk ll1 Oriented to surroundings, Maintained a safe environment, Educated pt \T\ family on fall prevention, incl call for assistance when getting out of bed, Hourly rounding (assess needs \T\ fall precautionary measures) done. Assessment: 09:50 General: Appears distressed, uncomfortable, Behavior is cooperative, appropriate for ll1 age. Pain: Complains of pain in R rib cage. Neuro: No deficits noted. Cardiovascular: No deficits noted. Respiratory: Reports shortness of breath labored breathing. 10:48 Reassessment: No changes from previously documented assessment. Patient and/or family ll1 updated on plan of care and expected duration. Pain level reassessed. 10:48 Pain: Pain does not radiate. ll1 11:24 Reassessment: No changes from previously documented assessment. Patient and/or family ll1 updated on plan of care and expected duration. Pain level reassessed. 11:50 Reassessment: No changes from previously documented assessment. Patient and/or family ll1 updated on plan of care and expected duration. Pain level reassessed. 13:15 Reassessment: No changes from previously documented assessment. Patient and/or family ll1 updated on plan of care and expected duration. Pain level reassessed. 13:27 Reassessment: No changes from previously documented assessment. Patient and/or family ll1 updated on plan of care and expected duration. Pain level reassessed. 14:22 Reassessment: No changes from previously documented assessment. Report given to lory Lazo RN on . 14:25 Pain: Pain began 2-3 days ago. ll1 Vital Signs: 09:51 BP 140 / 83; Pulse 91; Resp 38; Temp 98.6(O); Pulse Ox 91% on R/A; iw 10:07 Pulse 78; Resp 30; Pulse Ox 100% on Nebulizer Mask; ll1 10:47 BP 113 / 48; Pulse 75; Resp 30; Pulse Ox 97% on 3 lpm NC; ll1 11:51 BP 107 / 51; Pulse 68; Resp 30; Pulse Ox 98% on 3 lpm NC; ll1 13:27 BP 138 / 92; Pulse 69; Resp 26; Pulse Ox 99% ; ll1 13:50 BP 146 / 51; Pulse 67; Resp 28; Pulse Ox 98% on 3 lpm NC; ll1 13:56 Weight 47.63 kg; Height 5 ft. 4 in. (162.56 cm); ll1 13:56 Body Mass Index 18.02 (47.63 kg, 162.56 cm) 1 ED Course: 09:40 Patient arrived in ED. as 09:44 Maru Driver, RN is Primary Nurse. 1 09:44 Arm band placed on Patient placed in an exam room, on a stretcher. ll1 09:46 Skyler Centeno PA is PHCP. [facility] 09:47 Juan Jose Rodriguez MD is Attending Physician. jmm 09:51 Patient has correct armband on for positive identification. Fall risk band placed. mm9 Placed in gown. Bed in low position. Call light in reach. Adult w/ patient. Warm blanket given. Pillow given. Client placed on continuous cardiac and pulse oximetry monitoring. NIBP monitoring applied. compliance monitor on. Pulse ox on. NIBP on. 09:52 EKG done, by ED staff, reviewed by Juan Jose Rodriguez MD. mm9 09:53 Triage completed. iw 10:17 XRAY Chest (1 view) In Process Unspecified. EDMS 10:19 Missed attempt(s): 22 gauge in right hand. Bleeding controlled, band aid applied, ll1 catheter tip intact. 10:30 Inserted saline lock: 20 gauge in right antecubital area, using aseptic technique. ll1 Blood collected. 10:48 No provider procedures requiring assistance completed. Oxygen administration via nasal ll1 cannula \T\ 3L/min. 11:15 First set of blood cultures drawn by me. 1 11:29 CT Chest Wo Con In Process Unspecified. EDMS 12:21 Nawaf Rodriguez MD is Hospitalizing Provider. jmm 13:50 Patient admitted, IV remains in place. 1 Administered Medications: 10:03 Drug: Xopenex (levalbuterol) (3) 1.25 mg Route: Inhalation; 1 11:47 Follow up: Response: No adverse reaction 1 10:30 Drug: Magnesium Sulfate 1 grams Route: IVPB; Infused Over: 1 hrs; Site: right ll1 antecubital; 11:30 Follow up: Response: No adverse reaction; IV Status: Completed infusion; IV Intake: [id number] 10:30 Drug: SOLU-Medrol (methylPrednisoLONE) 125 mg Route: IVP; Site: right antecubital; ll1 11:47 Follow up: Response: No adverse reaction ll1 11:55 Not Given (different abx used): LevaQUIN (levofloxacin) [address] [facility] 12:03 Drug: Cefepime 1 grams Route: IVPB; Rate: 200 ml/hr; Infused Over: 30 mins; Site: right ll1 antecubital; 13:16 Follow up: Response: No adverse reaction; IV Status: Completed infusion; IV Intake: ll1 100ml 13:16 Drug: Zofran (Ondansetron) 4 mg Route: IVP; Site: right antecubital; ll1 14:26 Follow up: Response: No adverse reaction 1 13:17 Drug: vancoMYCIN 1 grams Route: IVPB; Infused Over: 2 hrs; Site: right antecubital; ll1 14:26 Follow up: Response: No adverse reaction; IV Status: Infusion continued upon admission 1 Medication: 10:48 VIS not applicable for this client. 1 Intake: 11:30 IV: 50ml; Total: 50ml. ll1 13:16 IV: 100ml; Total: 150ml. 1 Outcome: 12:22 Decision to Hospitalize by Provider. [facility] 14:25 Admitted to Tele accompanied by tech, via wheelchair, room 213, with chart, [facility] [address] [facility] Condition: stable 14:25 Instructed on the need for admit. 14:27 Patient left the ED. [facility] Signatures: Dispatcher [employer] EDMS Skyler Centeno PA PA jmm Martinez, Amelia as Williams, Irene, RN RN iw Lewis, Lynsay, RN RN ll1 Martinez, Maria mm9
--- NOTE | 2022-08-29 12:23 | EDPHYS ---
Physician Documentation [facility] Name: Ada Ford Age: 77 yrs Sex: Female : 1945 Arrival Date: 08/29/2022 Time: 09:40 Bed 8 Private MD: ED Physician Juan Jose Rodriguez HPI: 08/29 09:49 This 77 yrs old Female presents to ER via Wheelchair with complaints of Chest Pain, jmm Breathing Difficulty. 09:49 The patient has shortness of breath at rest. Onset: The symptoms/episode began/occurred jmm gradually, 1 day(s) ago. This is a 77 year old with a history of atrial fibrillation, hlp, copd that presents to the ED with complaints of cough, sob, wheezing beginning approx 1 day ago. Patient was recently hospitalized for gi bleed. . Historical: - Allergies: 09:53 Iodine; iw 09:53 PENICILLINS; iw - Home Meds: 09:53 sotalol 80 mg Oral tab 1 tab 2 times per day [Active]; atorvastatin 20 mg oral tab 1 iw tab once daily [Active]; prednisone 10 mg Oral tab once daily [Active]; albuterol sulfate 2.5 mg /3 mL (0.083 %) Nebulizer nebu [Active]; Trelegy Ellipta 100-62.5-25 mcg inhalation dsdv 1 puff once daily [Active]; - PMHx: 09:53 Atrial fibrillation; Hypercholesterolemia; Chronic obstructive lung disease; iw - PSHx: 09:53 Total abdominal hysterectomy; iw - Immunization history:: Adult Immunizations up to date. - Social history:: Smoking status: Patient denies any tobacco usage or history of. ROS: 09:49 Constitutional: Positive for body aches. jmm 09:49 Respiratory: Positive for cough, shortness of breath, wheezing. 09:49 All other systems are negative. Exam: 09:49 Constitutional: This is a well developed, well nourished patient who is awake, alert, jmm and in no acute distress. Head/Face: atraumatic. Eyes: EOMI, no conjunctival erythema appreciated ENT: Moist Mucus Membranes Neck: Trachea midline, Supple Chest/axilla: Normal chest wall appearance and motion. Cardiovascular: Regular rate and rhythm. No edema appreciated 09:49 Back: Normal ROM Skin: General appearance color normal MS/ Extremity: Moves all extremities, no obvious deformities appreciated, no edema noted to the lower extremities Neuro: Awake and alert 09:49 Respiratory: mild respiratory distress is noted, Respirations: labored breathing, that is mild, Breath sounds: wheezing: that is moderate, is heard diffusely. Vital Signs: 09:51 BP 140 / 83; Pulse 91; Resp 38; Temp 98.6(O); Pulse Ox 91% on R/A; iw 10:07 Pulse 78; Resp 30; Pulse Ox 100% on Nebulizer Mask; ll1 10:47 BP 113 / 48; Pulse 75; Resp 30; Pulse Ox 97% on 3 lpm NC; ll1 11:51 BP 107 / 51; Pulse 68; Resp 30; Pulse Ox 98% on 3 lpm NC; ll1 13:27 BP 138 / 92; Pulse 69; Resp 26; Pulse Ox 99% ; ll1 13:50 BP 146 / 51; Pulse 67; Resp 28; Pulse Ox 98% on 3 lpm NC; 1 13:56 Weight 47.63 kg; Height 5 ft. 4 in. (162.56 cm); ll1 13:56 Body Mass Index 18.02 (47.63 kg, 162.56 cm) 1 MDM: 09:49 Patient medically screened. [facility] 11:56 Data reviewed: vital signs, nurses notes. [facility] 16:06 Data reviewed: lab test result(s). Consideration of Admission/Observation Patient was [facility] admitted/placed on observation. Management of patient was discussed with the following: Hospitalist: Javy Claros NP. I considered the following discharge prescriptions or medication management in the emergency department Medications were administered in the Emergency Department. See MAR. Historians other than the Patient: Family. Counseling: I had a detailed discussion with the patient and/or guardian regarding: the historical points, exam findings, and any diagnostic results supporting the discharge/admit diagnosis, lab results, radiology results, the need for further work-up and treatment in the hospital. 08/29 09:52 Order name: Basic Metabolic Panel; Complete Time: 11:12 [facility] 08/29 09:52 Order name: CBC with Diff; Complete Time: 11:19 [facility] 08/29 09:52 Order name: LFT's; Complete Time: 11:12 [facility] 08/29 09:52 Order name: Magnesium; Complete Time: 11:12 jmm 08/29 09:52 Order name: NT PRO-BNP; Complete Time: 11:12 jmm 08/29 09:52 Order name: PT-INR; Complete Time: 10:59 jmm 08/29 09:52 Order name: Troponin HS; Complete Time: 11:12 jmm 08/29 10:59 Order name: Manual Differential; Complete Time: 11:19 EDMS 08/29 11:03 Order name: COVID-19/FLU A+B; Complete Time: 12:11 jmm 08/29 11:10 Order name: Lactate w/ 2H reflex if indic.; Complete Time: 11:56 ll1 08/29 11:10 Order name: Blood Culture Adult (2) ll1 08/29 13:04 Order name: Urinalysis EDMS 08/29 13:04 Order name: Basic Metabolic Panel EDMS 08/29 13:04 Order name: Basic Metabolic Panel EDMS 08/29 09:52 Order name: XRAY Chest (1 view); Complete Time: 10:53 [facility] 08/29 11:12 Order name: CT Chest Wo Con; Complete Time: 11:46 m 08/29 13:04 Order name: Basic Metabolic Panel EDMS 08/29 13:04 Order name: Basic Metabolic Panel EDMS 08/29 13:04 Order name: CBC with Automated Diff EDMS / 13:04 Order name: CBC with Automated Diff EDMS / 13:04 Order name: CBC with Automated Diff EDMS / 13:04 Order name: CBC with Automated Diff EDMS / 13:04 Order name: Lipid Profile EDMS 08/29 13:04 Order name: Lipid Profile EDMS / 13:04 Order name: Magnesium EDMS 08/29 13:04 Order name: Magnesium EDMS 08/29 13:04 Order name: Phosphorus EDMS 08/29 13:04 Order name: Phosphorus EDMS 08/29 13:08 Order name: Extrem Venous W Compress Kee; Complete Time: 14:22 EDMS / 09:52 Order name: EKG; Complete Time: 09:52 jmm 08/29 09:52 Order name: Cardiac monitoring; Complete Time: 09:53 jmm 08/29 09:52 Order name: EKG - Nurse/Tech; Complete Time: 09:53 jmm 08/29 09:52 Order name: IV Saline Lock; Complete Time: 10:30 [facility] 08/29 09:52 Order name: Labs collected and sent; Complete Time: 10:30 [facility] 08/29 09:52 Order name: O2 Per Protocol; Complete Time: 09:53 [facility] 08/29 09:52 Order name: O2 Sat Monitoring; Complete Time: 09:53 [facility] 08/29 13:04 Order name: Heart Healthy EDMS Administered Medications: 10:03 Drug: Xopenex (levalbuterol) (3) 1.25 mg Route: Inhalation; ll1 11:47 Follow up: Response: No adverse reaction ll1 10:30 Drug: Magnesium Sulfate 1 grams Route: IVPB; Infused Over: 1 hrs; Site: right ll1 antecubital; 11:30 Follow up: Response: No adverse reaction; IV Status: Completed infusion; IV Intake: [id number] 10:30 Drug: SOLU-Medrol (methylPrednisoLONE) 125 mg Route: IVP; Site: right antecubital; ll1 11:47 Follow up: Response: No adverse reaction ll1 11:55 Not Given (different abx used): LevaQUIN (levofloxacin) 750 mg IVPB once [facility] 12:03 Drug: Cefepime 1 grams Route: IVPB; Rate: 200 ml/hr; Infused Over: 30 mins; Site: right ll1 antecubital; 13:16 Follow up: Response: No adverse reaction; IV Status: Completed infusion; IV Intake: ll1 100ml 13:16 Drug: Zofran (Ondansetron) 4 mg Route: IVP; Site: right antecubital; ll1 14:26 Follow up: Response: No adverse reaction ll1 13:17 Drug: vancoMYCIN 1 grams Route: IVPB; Infused Over: 2 hrs; Site: right antecubital; ll1 14:26 Follow up: Response: No adverse reaction; IV Status: Infusion continued upon admission ll1 Disposition: 15:49 Co-signature as Attending Physician, Juan Jose Rodriguez MD. rn Disposition Summary: 08/29/22 12:22 Hospitalization Ordered Hospitalization Status: Inpatient Admission jm Provider: Nawaf Rodriguez Location: Telemetry/MedSurg (Inpatient) jmm Condition: Stable jmm Problem: new jmm Symptoms: are unchanged jmm Bed/Room Type: Standard [facility] Room Assignment: 213(08/29/22 13:47) solomon Diagnosis - Pneumonia jmm - Hypoxia [facility] Forms: - Medication Reconciliation Form tim - SBAR form tim Signatures: Dispatcher [employer] EDSkyler Sage PA PA jmm Williams, Irene, Juan Jose Johnson RN, MD MD rn Lewis, Lynsay, RN RN ll1 Marilu Evans Corrections: (The following items were deleted from the chart) 13:47 12:22 rekha carbajal
[2022-08-29] MEDS ORDERED: ACETAMINOPHEN 500 MG TAB PO PRN (12:55)
--- NOTE | 2022-08-29 12:56 | P.HP ---
Certification for Inpatient Patient admitted to: Inpatient With expected LOS: >2 Midnights Patient will require the following post-hospital care: None Practitioner: I am a practitioner with admitting privileges, knowledge of patient current condition, hospital course, and medical plan of care. Services: Services provided to patient in accordance with Admission requirements found in Title 42 Section 412.3 of the Code of Federal Regulations Patient History Date of Service: 08/29/22 Primary Care Provider: Deep Reason for admission: Pneumonia History of Present Illness: Patient is a 76-year-old female with past medical history of COPD, hypertension, and atrial fibrillation who is currently off her Xarelto due to recent bleeding ulcer. Patient presents to the emergency room with complaints of dyspnea and right flank pain. Patient states that her symptoms started yesterday evening. She reports right-sided sharp flank pain with 10 out of 10 severity with associated symptoms of shortness of breath. She said her symptoms are aggravated when she coughs. Patient's son stated that she received some ibuprof en and she slept all night. Patient said upon awakening this morning, her symptoms started all over again,and her son decided to bring her to the emergency room for further treatment. Per son, patient oxygenation was 85% at home. He administered an albuterol sulfate treatment with no improvement. Patient reports associated symptoms of vomiting, decreased appetite, and fatigue. On physical exam, patient had bilateral expiratory wheezing and was tachypneic. Patient also presents with left lower extremity +2 pitting edema, and right lower extremity +1 pitting edema. Patient states she noticed the edema a month ago. In the ED, she was treated with antibiotics, Xopenex, and steroids with little improvement. Her lab was significant for leukocytosis with a white count of 34.5. Her hemoglobin was stable at 12, no episodes of bleeding reported. CT thorax was positive for mild bilateral pneumonia. Patient will be admitted under care of Dr. Rodriguez. Pulmonology will be consulted for further evaluation and recommendations. Allergies iodine Allergy (Verified 03/26/22 01:59) Hives/Rash Penicillins Allergy (Verified 07/09/16 13:00) Rash mycins Allergy (Uncoded 07/09/16 13:00) Hives/Rash Home Medications: Aspirin [Aspirin EC 81 MG] 81 mg PO DAILY 05/21/16 Atorvastatin Calcium [Lipitor] 40 mg PO BEDTIME 05/21/16 Fluticasone/Umeclidin/Vilanter [Trelegy Ellipta 100-62.5-25] 1 each IH DAILY 30 Days #30 02/25/22 Sotalol HCl [Betapace*] 80 mg PO BID 30 Days #60 tab 03/26/22 Albuterol Neb [Proventil 0.083% Neb Soln] 1 amp NEB BID PRN 07/14/22 predniSONE [Prednisone] 1 tab PO BID 07/14/22 Fluconazole 200 mg PO DAILY 9 Days #9 tab 07/18/22 Pantoprazole Sodium [Protonix] 40 mg PO BID #60 tab 07/18/22 levoFLOXacin [Levaquin] 750 mg PO DAILY 5 Days #5 tab 07/18/22 - Past Medical/Surgical History Diabetic: No -: COPD -: HLD -: A. fib -: HLD -: total abdominal hysterectomy Psychosocial/ Personal History: Patient lives at home with her son - Family History Family History: Reviewed- Non-Contributory - Social History Smoking Status: Current every day smoker Smoking therapy provided: Yes Patient receptive to therapy: Yes Alcohol use: No CD- Drugs: No Caffeine use: Yes Place of Residence: Home Review of Systems 10-point ROS is otherwise unremarkable General: Weakness Respiratory: Cough, Shortness of Breath, SOB with Excertion Cardiovascular: Orthopnea Gastrointestinal: Vomiting Musculoskeletal: Back Pain, Pedal edema Neurological: Weakness Physical Examination - Vital Signs Temperature: 98.6 F Blood Pressure: 107/51 Pulse: 73 Respirations: 22 Pulse Ox (%): 97 - Physical Exam General: Alert, Oriented x3, Mild distress HEENT: Atraumatic, Normocephalic Neck: Supple Respiratory: Expiratory wheezes Cardiovascular: Edema Capillary refill: <2 Seconds Gastrointestinal: Normal bowel sounds Musculoskeletal: Swelling, Other (LLE +2, RLE +1) Integumentary: No rashes, No breakdown Neurological: Normal speech, Normal strength at 5/5 x4 extr Lymphatics: No axilla or inguinal lymphadenopathy - Studies Laboratory Data (last 24 hrs) 08/29/22 10:30: PT 12.3, INR 1.12 08/29/22 10:30: WBC 34.50 H*, Hgb 12.7, Hct 41.5, Plt Count 236 08/29/22 10:30: Sodium 135 L, Potassium 4.6, BUN 14, Creatinine 1.10 H, Glucose 119 H, Magnesium 1.8, Total Bilirubin 0.9, AST 14 L, ALT 14, Alkaline Phosphatase 95 Assessment and Plan - Plan Assessment Community-acquired pneumonia Acute on chronic COPD exacerbation History of atrial fibrillation History of bleeding ulcer Nicotine dependence Plan Patient is admitted for further management of pneumonia and COPD exacerbation Continue IV antibiotics Continue nebulizer treatments, with IV steroids Continue IV fluids Diuresis with Lasix Daily weights with strict I/O's Resume home medications when appropriate Pulmonology consulted, recommendations appreciated Bilateral lower extremity venous Doppler pending Serial troponins Patient counseled on smoking cessation DVT PPX- SCDs Full code Discharge Plan: Home Plan to discharge in: Greater than 2 days - Advance Directives Does patient have a Living Will: No Does patient have a Durable POA for Healthcare: No - Code Status/Comfort Care Code Status Assessed: Yes (Full code) Critical Care: No Time Spent Managing Pts Care (In Minutes): 50
--- NOTE | 2022-08-29 14:19 | RAD REPORT ---
EXAM DESCRIPTION: USExtrem Venous W Compress Bil08/29/2022 2:08 pm CLINICAL HISTORY: Leg swelling COMPARISON: none FINDINGS: The common femoral, superficial femoral, greater saphenous, popliteal and posterior tibial veins bilaterally are compressible and demonstrate augmentation. Doppler demonstrates good flow. Grayscale, color and spectral analysis performed on all vessels IMPRESSION: No evidence of deep venous thrombosis involving either lower extremity.
[2022-08-29] MEDS: ALBUTEROL 2.5 MG/3 ML NEB SOL NEB SCH ×2 (14:48→20:00)
[2022-08-29] MEDS: CEFTRIAXONE 1,000 MG in NA CHLORIDE 0.9% 50 ML IVPB SCH ×2 (15:23→20:12)
[2022-08-29] MEDS: NA CHLORIDE 0.9% 1,000 ML IV SCH (15:23)
[2022-08-29] MEDS: Levofloxacin 750mg IV 750 MG/150 ML BAG IV SCH (15:24)
[2022-08-29 15:47] VITALS: BMI 18.0
[2022-08-29] MEDS: METHYLPREDNISOLONE 40 MG INJ IV SCH (17:34)
[2022-08-29] MEDS: FUROSEMIDE 20 MG/ 2ML VIAL IV SCH (17:34)
[2022-08-29] MEDS: ONDANSETRON 4 MG/2 ML VIAL IV PRN (17:39)
[2022-08-29] MEDS ORDERED: PROMETHAZINE INJ 25 MG/ML AMP IV ONE (18:42)
[2022-08-29] MEDS ORDERED: ATORVASTATIN 40 MG TAB PO SCH (21:00)
[2022-08-30] MEDS: METHYLPREDNISOLONE 40 MG INJ IV SCH ×2 (00:41→10:39)
[2022-08-30] MEDS: ALBUTEROL 2.5 MG/3 ML NEB SOL NEB SCH (02:25)
[2022-08-30 04:15] LABS: Specific Gravity 1.014 (1.005-1.030); Urine Bacteria <20 /HPF (<20); Urine Bilirubin NEGATIVE (Negative); Urine Blood Negative (Negative); Urine Clarity Clear (Clear); Urine Color Light-Yellow (Yellow); Urine Glucose NEGATIVE (Negative); Urine Protein NEGATIVE (Negative); Urine RBC <5 /HPF (None Seen); Urine Urobilinogen Normal (Normal)
[2022-08-30] MEDS: NA CHLORIDE 0.9% 1,000 ML IV SCH (05:54)
[2022-08-30 06:20] LABS: Magnesium 2.1 mg/dL (1.6-2.4); Phosphorus 3.2 mg/dL (2.5-4.9); Potassium 4.3 mmol/L (3.5-5.1)
[2022-08-30] MEDS: PANTOPRAZOLE 40MG TABLET PO SCH (06:24)
[2022-08-30 06:25] LABS: Absolute Lymphocytes (CBC) 0.6 K/uL (0.7-4.9); Hematocrit 36.1 % (36.0-45.0); Lymphocytes % 1.8 % (15.3-44.8); MCV 82.3 fL (80-100); MPV 8.5 fL (7.6-11.3); RBC Red Blood Cell Count 4.39 M/uL (3.86-4.86)
--- NOTE | 2022-08-30 07:05 | P.PN ---
Date of Service: 08/30/22 Subjective: no significant change, still feels very short of breath no new symptoms/changes ROS: A complete review of systems was performed and is negative except as mentioned above Physical Exam: Gen: mild distress, anxious HEENT: normal conjunctiva, sclera anicteric CV: regular rate & rhythm, no edema Pulm: labored respirations on O2, b/l wheeze Abd: soft, non-tender, non-distended Neuro: normal speech, moves all extremities vitals reviewed Problem List acute hypoxemic respiratory failure secondary to Sepsis secondary to Community- acquired pneumonia Acute on chronic COPD exacerbation History of atrial fibrillation History of bleeding ulcer Nicotine dependence continue empiric antibiotics for pneumonia continue steroids, nebs, inhalers for acute COPD pulm consulted significant leukocytosis, pt unsure if she was taking steroids recently, but denies any recent change in meds/dose confirm home meds monitor on telemetry blood cultures: prelim: GPC in 08/29 eri & marielle Code: full Dispo: home, ~3-4 days
[2022-08-30] MEDS: Fluticasone/Umeclidin/Vilanter [Trelegy Ellipta 100-62.5-25] Blst.W.Dev IH SCH (09:00)
[2022-08-30] MEDS: NICOTINE 21 MG/PAT TD SCH (09:00)
[2022-08-30] MEDS: FUROSEMIDE 20 MG/ 2ML VIAL IV SCH (09:52)
[2022-08-30] MEDS: SOTALOL HCL 80 MG TAB PO SCH ×2 (09:52→20:36)
--- NOTE | 2022-08-30 11:29 | P.CNS ---
Date of Consult: 08/30/22 Reason for Consult: Pneumonia Primary Care Provider: Deep Chief Complaint: Pneumonia History of Present Illness: Patient is 77 years of age with a history of COPD active smoker sick over the past 1-1/2 days son present at the bedside came more short of breath admitted with bilateral pneumonia and elevated white count prior to that she was ambulating denies any fever or productive cough Allergies iodine Allergy (Verified 03/26/22 01:59) Hives/Rash Penicillins Allergy (Verified 07/09/16 13:00) Rash mycins Allergy (Uncoded 07/09/16 13:00) Hives/Rash Home Medications: Atorvastatin Calcium [Lipitor] 20 mg PO BEDTIME 05/21/16 Sotalol HCl [Betapace*] 80 mg PO BID 30 Days #60 tab 03/26/22 Albuterol Neb [Proventil 0.083% Neb Soln] 1 amp NEB Q4H PRN 07/14/22 predniSONE [Prednisone] 10 tab PO DAILY 07/14/22 Fluticasone/Umeclidin/Vilanter [Trelegy Ellipta 100-62.5-25] 1 puff IH DAILY 08/29/22 - Past Medical/Surgical History Diabetic: No -: COPD -: HLD -: A. fib -: HLD -: total abdominal hysterectomy Psychosocial/ Personal History: Patient lives at home with her son - Social History Smoking Status: Current every day smoker Alcohol use: No CD- Drugs: No Caffeine use: Yes Place of Residence: Home Review of Systems 10-point ROS is otherwise unremarkable General: Weakness Respiratory: Shortness of Breath Physical Examination Temp Pulse Resp BP Pulse Ox 97.1 F 86 18 132/49 L 90 L 08/30/22 08:00 08/30/22 09:52 08/30/22 08:00 08/30/22 09:52 08/30/22 08:00 General: Alert, In no apparent distress, Oriented x3 Respiratory: Clear to auscultation bilaterally, Diminished Cardiovascular: No edema, Normal pulses, Regular rate/rhythm Gastrointestinal: Normal bowel sounds, Soft and benign - Problems (1) Pneumonia Current Visit: Yes Status: Acute Plan: Patient is 77 years of age with a history of COPD active smoker uses trilogy at home admitted with bilateral pneumonia prominent on the CT scan count was over 30,000 patient is at risk for resistant infection including Pseudomonas and MRSA and also vancomycin for now patient does not have O2 at home DC Lasix reduce prednisone otherwise stable Qualifiers: Pneumonia type: due to unspecified organism Laterality: bilateral
[2022-08-30] MEDS ORDERED: VANCOMYCIN 1 GM in NA CHLORIDE 0.9% 250 ML IVPB ONE (12:00)
[2022-08-30] MEDS: TRAMADOL HCL 50 MG TAB PO PRN (12:28)
[2022-08-30 12:39] LABS: Platelet Estimate ADEQ
[2022-08-30 12:40] LABS: Anisocytosis 1+; Blood Morphology Comment NOTED (NOT SEEN); Poikilocytosis 1+
[2022-08-30] MEDS: LEVALBUTEROL 1.25 MG/3 ML NEB NEB PRN ×2 (13:32→19:30)
[2022-08-30] MEDS: predniSONE 10 MG TAB PO SCH (20:36)
[2022-08-30] MEDS: ATORVASTATIN 20 MG TAB PO SCH (20:37)
[2022-08-31] MEDS: LEVALBUTEROL 1.25 MG/3 ML NEB NEB PRN ×3 (01:40→19:20)
[2022-08-31] MEDS: VANCOMYCIN 750 MG in NA CHLORIDE 0.9% 150 ML IVPB SCH ×2 (05:16→23:25)
[2022-08-31] MEDS: ONDANSETRON 4 MG/2 ML VIAL IV PRN (05:18)
[2022-08-31] MEDS: PANTOPRAZOLE 40MG TABLET PO SCH (05:19)
[2022-08-31 06:21] LABS: Absolute Lymphocytes (CBC) 0.8 K/uL (0.7-4.9); Hematocrit 33.2 % (36.0-45.0); Lymphocytes % 3.1 % (15.3-44.8); MCV 81.8 fL (80-100); MPV 8.3 fL (7.6-11.3); RBC Red Blood Cell Count 4.06 M/uL (3.86-4.86)
[2022-08-31 06:23] LABS: Potassium 3.9 mmol/L (3.5-5.1)
--- NOTE | 2022-08-31 06:58 | P.PN ---
Date of Service: 08/31/22 Subjective: Breathing more comfortably Oxygen supplementation decreased No new/worsening symptoms ROS: A complete review of systems was performed and is negative except as mentioned above Physical Exam: Gen: NAD, anxious HEENT: normal conjunctiva, sclera anicteric CV: regular rate & rhythm, no edema Pulm: mild labored respirations on O2, b/l wheeze Abd: soft, non-tender, non-distended Neuro: normal speech, moves all extremities vitals reviewed Problem List acute hypoxemic respiratory failure secondary to Sepsis secondary to Community- acquired pneumonia Acute on chronic COPD exacerbation History of atrial fibrillation History of bleeding ulcer Nicotine dependence continue empiric antibiotics for pneumonia continue steroids, nebs, inhalers for acute COPD pulm consulted significant leukocytosis, pt unsure if she was taking steroids recently, but denies any recent change in meds/dose confirm home meds monitor on telemetry blood cultures: prelim: [facility]PC in 08/29 vanc & levaquin repeat blood cultures 08/31 Code: full Dispo: home, ~2 days
[2022-08-31] MEDS: predniSONE 10 MG TAB PO SCH ×2 (08:52→21:51)
[2022-08-31] MEDS: SOTALOL HCL 80 MG TAB PO SCH ×2 (08:52→21:46)
[2022-08-31] MEDS: NICOTINE 21 MG/PAT TD SCH (08:52)
[2022-08-31] MEDS: Fluticasone/Umeclidin/Vilanter [Trelegy Ellipta 100-62.5-25] Blst.W.Dev IH SCH (08:53)
--- NOTE | 2022-08-31 11:46 | P.PN ---
Subjective Date of Service: 08/31/22 Primary Care Provider: Deep Chief Complaint: Pneumonia No change in patient's condition still feeling very weak complaining of dyspepsia Review of Systems General: Weakness Respiratory: Shortness of Breath Physical Examination - Vital Signs Temperature: 98.2 F Blood Pressure: 139/64 Pulse: 72 Respirations: 14 Pulse Ox (%): 95 - Physical Exam General: Alert, Oriented x3 Respiratory: Clear to auscultation bilaterally, Diminished Cardiovascular: No edema, Normal S1 S2 - Studies Microbiology Data (last 24 hrs): 08/29/22 11:30 Blood - Blood Blood Culture Gram Stain - Final Assessment And Plan - Current Problems (Diagnosis) (1) Pneumonia Current Visit: Yes Status: Acute Plan: Patient admitted with bilateral pneumonia cultures are positive most likely contaminant ID pending White count is steadily declining continue with levofloxacin vancomycin vital signs oxygenation stable physical therapy Qualifiers: Pneumonia type: due to unspecified organism Laterality: bilateral
[2022-08-31] MEDS: Levofloxacin 750mg IV 750 MG/150 ML BAG IV SCH (15:34)
[2022-08-31] MEDS: ENSURE ENLIVE 237 ML CAN PO SCH (21:00)
[2022-08-31] MEDS: JUVEN PACKET PO SCH (21:00)
[2022-08-31] MEDS: ATORVASTATIN 20 MG TAB PO SCH (21:46)
[2022-09-01] MEDS: PANTOPRAZOLE 40MG TABLET PO SCH (06:22)
[2022-09-01 06:42] LABS: Hematocrit 31.7 % (36.0-45.0); MPV 8.3 fL (7.6-11.3); RBC Red Blood Cell Count 3.91 M/uL (3.86-4.86)
[2022-09-01 06:59] LABS: Potassium 4.6 mmol/L (3.5-5.1)
[2022-09-01] MEDS: VANCOMYCIN 750 MG in NA CHLORIDE 0.9% 150 ML IVPB SCH ×3 (08:00→20:00)
[2022-09-01] MEDS: NICOTINE 21 MG/PAT TD SCH (09:00)
--- NOTE | 2022-09-01 09:13 | P.CNS ---
Reason for Consult: 09/01 Primary Care Provider: Deep Chief Complaint: Pneumonia History of Present Illness: Patient is a 76-year-old female with past medical history of COPD, hypertension, and atrial fibrillation who is currently off her Xarelto due to recent bleeding ulcer. Patient presents to the emergency room with complaints of dyspnea and right flank pain. Patient states that her symptoms started yesterday evening. She reports right-sided sharp flank pain with 10 out of 10 severity with associated symptoms of shortness of breath. She said her symptoms are aggravated when she coughs. Patient's son stated that she received some ibuprofen and she slept all night. Patient said upon awakening this morning, her symptoms started all over again,and her son decided to bring her to the emergency room for further treatment. Per son, patient oxygenation was 85% at home. He administered an albuterol sulfate treatment with no improvement. Patient reports associated symptoms of vomiting, decreased appetite, and fatigue. On physical exam, patient had bilateral expiratory wheezing and was tachypneic. Patient also presents with left lower extremity +2 pitting edema, and right lower extremity +1 pitting edema. Patient states she noticed the edema a month ago. In the ED, she was treated with antibiotics, Xopenex, and steroids with little improvement. Her lab was significant for leukocytosis with a white count of 34.5. Her hemoglobin was stable at 12, no episodes of bleeding reported. CT thorax was positive for mild bilateral pneumonia. Patient will be admitted under care of Dr. Rodriguez. Pulmonology will be consulted for further evaluation and recommendations. ID has been consulted for IV antibiotics recommendations and management of PNA Allergies iodine Allergy (Verified 03/26/22 01:59) Hives/Rash Penicillins Allergy (Verified 07/09/16 13:00) Rash mycins Allergy (Uncoded 07/09/16 13:00) Hives/Rash Home Medications: Atorvastatin Calcium [Lipitor] 20 mg PO BEDTIME 05/21/16 Sotalol HCl [Betapace*] 80 mg PO BID 30 Days #60 tab 03/26/22 Albuterol Neb [Proventil 0.083% Neb Soln] 1 amp NEB Q4H PRN 07/14/22 predniSONE [Prednisone] 10 tab PO DAILY 07/14/22 Fluticasone/Umeclidin/Vilanter [Trelegy Ellipta 100-62.5-25] 1 puff IH DAILY 08/29/22 - Past Medical/Surgical History Diabetic: No -: COPD -: HLD -: A. fib -: HLD -: total abdominal hysterectomy Psychosocial/ Personal History: Patient lives at home with her son - Social History Smoking Status: Current every day smoker Alcohol use: No CD- Drugs: No Caffeine use: Yes Place of Residence: Home Review of Systems 10-point ROS is otherwise unremarkable Physical Examination Temp Pulse Resp BP Pulse Ox 96.8 F 65 18 146/56 H 98 09/01/22 07:56 09/01/22 07:56 09/01/22 07:56 09/01/22 07:56 09/01/22 07:56 General: Alert, In no apparent distress, Oriented x3 Neck: Supple Respiratory: Crackles/rales (fine), Other (2 L NC) Cardiovascular: Normal pulses, Normal S1 S2 Gastrointestinal: Normal bowel sounds Musculoskeletal: No swelling, No tenderness Integumentary: No rashes, No breakdown Neurological: Normal speech, Normal tone, Normal affect Urinary: Other (Purewick in place, urine markos and clear) Acetaminophen (Acetaminophen 500 Mg Tab) 500 mg PO Q4HP PRN PRN Reason: Pain scale 2-4 (Mild) Atorvastatin Calcium (Atorvastatin 20 Mg Tab) 20 mg PO BEDTIME [facility] Last Admin: 08/31/22 21:46 Dose: 20 mg Home Med (Fluticasone/Umeclidin/Vilanter [Trelegy Ellipta 100-62.5-25]) 1 puff IH DAILY [facility] Last Admin: 08/31/22 08:53 Dose: Not Given Levofloxacin/Dextrose (Levaquin 750 Mg/150 Ml Ivpb (Premix)) 750 mg in 150 mls @ 100 mls/hr IV Q48H [facility]; Protocol Last Admin: 08/31/22 15:34 Dose: 150 mls Vancomycin HCl 750 mg/ Sodium (Chloride) 150 mls @ 150 mls/hr IVPB Q18H [facility] Last Admin: 08/31/22 23:25 Dose: 150 mls L-Arginine/L-Glutamine/HMB (Florentino Packet) 1 pkt PO BID [facility] Last Admin: 08/31/22 21:00 Dose: Not Given Levalbuterol HCl (Levalbuterol 1.25 Mg/3 Ml Neb) 1.25 mg NEB [id number] PRN PRN Reason: SHORTNESS OF BREATH Last Admin: 08/31/22 19:20 Dose: 1.25 mg Nicotine (Nicotine 21 Mg/Pat) 21 mg TD DAILY [facility] Last Admin: 08/31/22 08:52 Dose: Not Given Nutritional Formula (Ensure Enlive 237 Ml Can) 237 ml PO BID [facility] Last Admin: 08/31/22 21:00 Dose: Not Given Ondansetron HCl (Ondansetron 4 Mg/2 Ml Vial) 4 mg IV Q6HP PRN PRN Reason: NAUSEA / VOMITING Last Admin: 08/31/22 05:18 Dose: 4 mg Pantoprazole Sodium ([facility]oprazole 40mg Tablet) [facility]; Protocol Last Admin: 09/01/22 06:22 Dose: 40 mg Prednisone (Prednisone 10 Mg Tab) 10 mg PO BID [facility] Last Admin: 08/31/22 21:51 Dose: 10 mg Sodium Chloride (Flush Normal Saline 10 Ml) 10 ml IV BID [facility] Last Admin: 08/31/22 21:51 Dose: 10 ml Sotalol HCl (Sotalol Hcl 80 Mg Tab) 80 mg PO BID [facility] Last Admin: 08/31/22 21:46 Dose: 80 mg Tramadol HCl (Tramadol Hcl 50 Mg Tab) 50 mg PO Q6H PRN PRN Reason: Pain scale 5-7 (Moderate) Last Admin: 08/30/22 12:28 Dose: 50 mg 08/29/22 11:30 Blood - Blood Blood Culture Gram Stain - Final Imagings Data: CT - Thorax [facility] - 08/29/2022 FINDINGS: The evaluation of mediastinum, joaquim and vessels is limited secondary to lack of IV contrast administration. Moderate COPD. Mild patchy alveolar opacities lingula, right and left lower lobes. Mild tree-in-bud opacities left lower lobe. Several borderline enlarged mediastinal lymph nodes A pleural effusion is not present. No pericardial effusion IMPRESSION: Moderate COPD Mild bilateral pneumonia Several borderline enlarged mediastinal lymph nodes most likely reactive in nature. Followup CT chest could be obtained in 6 months to assess stability - Problems (1) Pneumonia Current Visit: Yes Status: Acute Plan: Cultures: 08/29 BCx2: Negative 08/31 BCx2: Negative Antibiotics: On IV Levofloxacin (from 08/29) and Vancomycin (from 08/31) Recommendations: Continue IV Levofloxacin and Vancomycin for total of 6 days Qualifiers: Pneumonia type: due to unspecified organism Laterality: bilateral (2) Leukocytosis Current Visit: Yes Status: Acute Plan: Most likely due to pneumonia WBC: Trending down, toady, 23.4 Conclusions/Impression: - Community-acquired pneumonia - continue IV antibiotics for total of 6 days - Leukocytosis - Severe protein calorie malnutrition - Acute on chronic COPD exacerbation - History of atrial fibrillation - History of bleeding ulcer - Nicotine dependence - COPD - HLD - A. fib - HLD - Total abdominal hysterectomy ID will monitor the patient closely for signs of infection with fever and WBC trends Case has been discussed with Dr. Negron N Thank you Dr. Cervantes for consultation
[2022-09-01] MEDS: predniSONE 10 MG TAB PO SCH ×2 (09:31→21:03)
[2022-09-01] MEDS: SOTALOL HCL 80 MG TAB PO SCH ×2 (09:31→21:03)
[2022-09-01] MEDS: Fluticasone/Umeclidin/Vilanter [Trelegy Ellipta 100-62.5-25] Blst.W.Dev IH SCH (09:32)
[2022-09-01] MEDS: JUVEN PACKET PO SCH ×2 (09:40→21:04)
[2022-09-01] MEDS: ENSURE ENLIVE 237 ML CAN PO SCH ×2 (09:40→21:04)
--- NOTE | 2022-09-01 14:30 | P.PN ---
Subjective Date of Service: 09/01/22 Primary Care Provider: Deep Chief Complaint: Pneumonia Patient states that she feels much better today. No issues overnight. No recorded fever. Physical Examination - Vital Signs Temperature: 98.2 F Blood Pressure: 138/57 Pulse: 68 Respirations: 18 Pulse Ox (%): 93 - Studies Microbiology Data (last 24 hrs): 08/29/22 11:30 Blood - Blood Blood Culture Gram Stain - Final Assessment And Plan - Plan Physical Exam: Gen: NAD, awake and alert Neck: No JVD CV: regular rate & rhythm, no edema Pulm: Mild bibasilar Rales, adequate breath sounds bilaterally. Abd: soft, non-tender, non-distended Neuro: normal speech, moves all extremities Skin: No cyanosis, no rashes. vitals reviewed Problem List acute hypoxemic respiratory failure Sepsis secondary to Community-acquired pneumonia Acute on chronic COPD exacerbation History of atrial fibrillation History of bleeding ulcer Nicotine dependence Plan Leukocytosis trending down but slowly rate. 2 out of 4 blood culture bottles grew staph xylosus. Repeat blood culture shows no growth. Continue vancomycin and Levaquin continue steroids, nebs, inhalers for acute COPD pulm is following. Infectious disease consulted. Duration of antibiotics per infectious disease. Monitor CBC to follow leukocytosis Continue home meds Atrial fibrillation is stable. Continue sotalol. Patient is not anticoagulated. She has a history of bleeding ulcer. Continue oral Protonix Wean off oxygen as tolerated. Increase activity as tolerated. Her mobility is impaired. PT is evaluated. Consult OT. Code: full Dispo: Anticipating skilled rehab.
[2022-09-01] MEDS: ATORVASTATIN 20 MG TAB PO SCH (21:03)
[2022-09-01] MEDS ORDERED: HYDROCODONE/CHLORPHEN 5 ML/OSYR PO PRN (23:41)
[2022-09-02] MEDS: PANTOPRAZOLE 40MG TABLET PO SCH (06:07)
[2022-09-02 06:12] LABS: MCV 80.3 fL (80-100); MPV 8.2 fL (7.6-11.3); RBC Red Blood Cell Count 3.61 M/uL (3.86-4.86)
--- NOTE | 2022-09-02 07:52 | P.PN ---
Subjective Date of Service: 09/02/22 Primary Care Provider: Deep Chief Complaint: Pneumonia Patient lying in bed with 2 L of oxygen support with no signs of cardiopulmonary distress. Physical Examination - Vital Signs Temperature: 98.2 F Blood Pressure: 134/49 Pulse: 60 Respirations: 18 Pulse Ox (%): 96 - Physical Exam General: Alert, In no apparent distress, Oriented x3 Respiratory: Clear to auscultation bilaterally, Other (2 L NC, mild dry cough) Cardiovascular: No edema, Normal pulses, Normal S1 S2 Gastrointestinal: Normal bowel sounds Musculoskeletal: No swelling, No contractures Integumentary: No rashes, No breakdown, Other (skin dry) Neurological: Normal speech, Normal tone, Normal affect Urinary: Other (purewick in place, urine markos and clear) - Studies Acetaminophen (Acetaminophen 500 Mg Tab) 500 mg PO Q4HP PRN PRN Reason: Pain scale 2-4 (Mild) Atorvastatin Calcium (Atorvastatin 20 Mg Tab) 20 mg PO BEDTIME [facility] Last Admin: 09/01/22 21:03 Dose: 20 mg Chlorphenir/Hydrocodone Polistirex (Hydrocodone/Chlorphen 5 Ml/Osyr) 5 ml PO B ID PRN PRN Reason: COUGH Last Admin: 09/01/22 23:54 Dose: 5 ml Home Med (Fluticasone/Umeclidin/Vilanter [Trelegy Ellipta 100-62.5-25]) 1 puff IH DAILY [facility] Last Admin: 09/01/22 09:32 Dose: 1 puff Levofloxacin/Dextrose (Levaquin 750 Mg/150 Ml Ivpb (Premix)) 750 mg in 150 mls @ 100 mls/hr IV Q48H [facility]; Protocol Last Admin: 08/31/22 15:34 Dose: 150 mls Vancomycin HCl 750 mg/ Sodium (Chloride) 150 mls @ 150 mls/hr IVPB Q12H [facility] Last Admin: 09/01/22 20:00 Dose: 150 mls L-Arginine/L-Glutamine/HMB (Florentino Packet) 1 pkt PO BID [facility] Last Admin: 09/01/22 21:04 Dose: 1 pkt Levalbuterol HCl (Levalbuterol 1.25 Mg/3 Ml Neb) 1.25 mg NEB [id number] PRN PRN Reason: SHORTNESS OF BREATH Last Admin: 08/31/22 19:20 Dose: 1.25 mg Nicotine (Nicotine 21 Mg/Pat) 21 mg TD DAILY [facility] Last Admin: 09/01/22 09:00 Dose: Not Given Nutritional Formula (Ensure Enlive 237 Ml Can) 237 ml PO BID [facility] Last Admin: 09/01/22 21:04 Dose: 237 ml Ondansetron HCl (Ondansetron 4 Mg/2 Ml Vial) 4 mg IV Q6HP PRN PRN Reason: NAUSEA / VOMITING Last Admin: 08/31/22 05:18 Dose: 4 mg Pantoprazole Sodium (Pantoprazole [facility]mg Tablet) [facility] Last Admin: 09/02/22 06:07 Dose: 40 mg Prednisone (Prednisone 10 Mg Tab) 10 mg PO BID [facility] Last Admin: 09/01/22 21:03 Dose: 10 mg Sodium Chloride (Flush Normal Saline 10 Ml) 10 ml IV BID [facility] Last Admin: 09/01/22 21:04 Dose: 10 ml Sotalol HCl (Sotalol Hcl 80 Mg Tab) 80 mg PO BID [facility] Last Admin: 09/01/22 21:03 Dose: 80 mg Tramadol HCl (Tramadol Hcl 50 Mg Tab) 50 mg PO Q6H PRN PRN Reason: Pain scale 5-7 (Moderate) Last Admin: 08/30/22 12:28 Dose: 50 mg Microbiology Data (last 24 hrs): Microbiology 08/29/22 11:30 Blood - Blood Aerobic Blood Culture - Preliminary Staph Xylosus 08/29/22 11:30 Blood - Blood Blood Culture Gram Stain - Final 08/29/22 11:30 Blood - Blood Anaerobic Blood Culture - Preliminary No growth in 24 hours. 08/29/22 11:15 Blood - Blood Aerobic Blood Culture - Preliminary Staph Xylosus 08/29/22 11:15 Blood - Blood Anaerobic Blood Culture - Final Staph Xylosus 08/29/22 11:15 Blood - Blood Gram Stain - Final Assessment And Plan - Current Problems (Diagnosis) (1) Bacteremia Current Visit: Yes Status: Acute Plan: Cultures: 08/31 BCx2: Negative 08/29 BCx2: Staph Xylosus, Susceptible to Levofloxacin and Vancomycin Antibiotics: On IV Levofloxacin (from 08/29) and Vancomycin (from 08/31) Recommendations: Stop Vancomycin Continue IV Levofloxacin for total of 14 days (from 08/31 to 09/13) (2) Pneumonia Current Visit: Yes Status: Acute Plan: Cultures: 08/31 BCx2: Negative 08/29 BCx2: Staph Xylosus, Susceptible to Levofloxacin and Vancomycin Antibiotics: On IV Levofloxacin (from 08/29) and Vancomycin (from 08/31) Recommendations: Stop Vancomycin Continue IV Levofloxacin for total of 14 days (from 08/31 to 09/13) Qualifiers: Pneumonia type: due to unspecified organism Laterality: bilateral (3) Leukocytosis Current Visit: Yes Status: Acute Plan: Most likely due to pneumonia/bacteremia WBC: 09/01: 23.4 09/02: 14.7, Trending down, - Plan - Bacteremia- The total course of IV antibiotics should be total of 14 days (from 08/31 to 09/13) - Community-acquired pneumonia - continue IV antibiotics for total of 14 days - Leukocytosis - Severe protein calorie malnutrition - Acute on chronic COPD exacerbation - History of atrial fibrillation - History of bleeding ulcer - Nicotine dependence - COPD - HLD - A. fib - HLD - Total abdominal hysterectomy ID will monitor the patient closely for signs of infection with fever and WBC trends Case has been discussed with Dr. Negron, N
[2022-09-02] MEDS: ENSURE ENLIVE 237 ML CAN PO SCH ×2 (09:00→21:41)
[2022-09-02] MEDS: JUVEN PACKET PO SCH ×2 (09:00→21:41)
[2022-09-02] MEDS: NICOTINE 21 MG/PAT TD SCH (09:00)
[2022-09-02] MEDS: VANCOMYCIN 750 MG in NA CHLORIDE 0.9% 150 ML IVPB SCH (09:04)
[2022-09-02] MEDS: predniSONE 10 MG TAB PO SCH ×2 (09:05→21:36)
[2022-09-02] MEDS: SOTALOL HCL 80 MG TAB PO SCH ×2 (09:05→21:36)
[2022-09-02] MEDS: Fluticasone/Umeclidin/Vilanter [Trelegy Ellipta 100-62.5-25] Blst.W.Dev IH SCH (09:05)
[2022-09-02] MEDS: TRAMADOL HCL 50 MG TAB PO PRN (11:22)
--- NOTE | 2022-09-02 11:59 | P.PN ---
Subjective Date of Service: 09/02/22 Primary Care Provider: Deep Chief Complaint: Pneumonia Patient has no new complaint. She feels she is getting better No issues overnight. Physical Examination - Vital Signs Temperature: 98.2 F Blood Pressure: 134/49 Pulse: 60 Respirations: 18 Pulse Ox (%): 96 - Studies Microbiology Data (last 24 hrs): 08/29/22 11:30 Blood - Blood Blood Culture Gram Stain - Final 08/29/22 11:15 Blood - Blood Anaerobic Blood Culture - Final Staph Xylosus 08/29/22 11:15 Blood - Blood Gram Stain - Final Assessment And Plan - Plan Physical Exam: Gen: NAD, awake and alert Neck: No JVD CV: regular rate & rhythm, no edema Pulm: Mild bibasilar Rales, adequate breath sounds bilaterally. Abd: soft, non-tender, non-distended Neuro: normal speech, moves all extremities Skin: No cyanosis, no rashes. vitals reviewed Problem List acute hypoxemic respiratory failure Sepsis secondary to Community-acquired pneumonia Acute on chronic COPD exacerbation History of atrial fibrillation History of bleeding ulcer Nicotine dependence Plan Leukocytosis trending down significantly from yesterday. 2 out of 4 blood culture bottles grew staph xylosus. Repeat blood culture shows no growth. Infectious disease input appreciated. Vancomycin discontinued Continue Levaquin. Infectious disease recommended 2 weeks of IV Levaquin. Place PICC line for outpatient antibiotic. continue steroids, nebs, inhalers for acute COPD Atrial fibrillation is stable. Continue sotalol. Patient is not anticoagulat ed. She has a history of bleeding ulcer. Continue oral Protonix Wean off oxygen as tolerated. Increase activity as tolerated. Her mobility is impaired. Continue PT and OT Code: full Dispo: Anticipating skilled rehab. Social service consulted for SNF placement.
--- NOTE | 2022-09-02 12:13 | P.PN ---
Subjective Date of Service: 09/02/22 Primary Care Provider: Deep Chief Complaint: Pneumonia Patient is improving weak undergoing physical therapy blood cultures positive for atypical staphylococcal Review of Systems General: Weakness Respiratory: Shortness of Breath Physical Examination - Vital Signs Temperature: 98.2 F Blood Pressure: 134/49 Pulse: 60 Respirations: 18 Pulse Ox (%): 96 - Physical Exam General: Oriented x3 Neck: Supple Respiratory: Clear to auscultation bilaterally, Diminished Cardiovascular: No edema, Regular rate/rhythm - Studies Microbiology Data (last 24 hrs): 08/29/22 11:30 Blood - Blood Blood Culture Gram Stain - Final 08/29/22 11:15 Blood - Blood Anaerobic Blood Culture - Final Staph Xylosus 08/29/22 11:15 Blood - Blood Gram Stain - Final Assessment And Plan - Current Problems (Diagnosis) (1) Pneumonia Current Visit: Yes Status: Acute Plan: Patient admitted with pneumonia doing better white count declining DC vancomycin continue with IV levofloxacin DVT prophylaxis physical therapy ambulate discharge planning continue with p.o. levofloxacin once the white count is normal low-dose prednisone and bronchodilator Qualifiers: Pneumonia type: due to unspecified organism Laterality: bilateral
[2022-09-02] MEDS: ENOXAPARIN 30 MG/0.3 ML SQ SCH (13:18)
[2022-09-02] MEDS: Levofloxacin 750mg IV 750 MG/150 ML BAG IV SCH (15:35)
--- NOTE | 2022-09-02 18:40 | RAD REPORT ---
EXAM DESCRIPTION: RAD - Chest Single View - 09/02/2022 6:31 pm CLINICAL HISTORY: PICC placement COMPARISON: Chest Single View dated 08/29/2022; Chest Single View dated 07/14/2022; Chest Single View dated 03/25/2022; Chest Single View dated 02/24/2022 FINDINGS: Portable chest was obtained following placement of a right upper extremity PICC line. The catheter tip projects over the SVC.
[2022-09-02] MEDS: ATORVASTATIN 20 MG TAB PO SCH (21:36)
[2022-09-03] MEDS: PANTOPRAZOLE 40MG TABLET PO SCH (06:00)
--- NOTE | 2022-09-03 08:24 | RAD REPORT ---
EXAM DESCRIPTION: RADChest Single View09/03/2022 5:43 am CLINICAL HISTORY: pneumonia COMPARISON: Chest Single View dated 09/02/2022; Chest Single View dated 08/29/2022; Chest Single View da nathaniel 07/14/2022; Chest Single View dated 03/25/2022 FINDINGS: Right arm PICC in place, with tip projecting at the level of the distal SVC, unchanged. Persistent right basal confluent airspace opacity, which could reflect pneumonia. Possible trace righ t effusion. Appearance is stable. Left lung remains clear. No pneumothorax. The cardiomediastinal con tours are unremarkable. IMPRESSION: No significant interval change, findings as above.
--- NOTE | 2022-09-03 08:25 | P.PN ---
Subjective Date of Service: 09/03/22 Primary Care Provider: Deep Chief Complaint: Pneumonia Patient lying in bed with 2 L of oxygen support with no signs of cardiopulmonary distress. PT at the bedside working with the patient. Physical Examination - Vital Signs Temperature: 99.4 F Blood Pressure: 155/63 Pulse: 62 Respirations: 16 Pulse Ox (%): 95 - Physical Exam General: Alert, In no apparent distress, Oriented x3 Neck: Supple Respiratory: Other (2 L NC) Cardiovascular: No edema, Normal S1 S2 Gastrointestinal: Normal bowel sounds Musculoskeletal: No swelling, No tenderness Integumentary: No rashes, No breakdown Neurological: Normal speech, Normal tone, Normal affect - Studies Acetaminophen (Acetaminophen 500 Mg Tab) 500 mg PO Q4HP PRN PRN Reason: Pain scale 2-4 (Mild) Atorvastatin Calcium (Atorvastatin 20 Mg Tab) 20 mg PO BEDTIME [facility] Last Admin: 09/02/22 21:36 Dose: 20 mg Chlorphenir/Hydrocodone Polistirex (Hydrocodone/Chlorphen 5 Ml/[place]) 5 ml PO BID PRN PRN Reason: COUGH Last Admin: 09/01/22 23:54 Dose: 5 ml Enoxaparin Sodium (Enoxaparin 30 Mg/0.3 Ml) 30 mg SQ DAILY [facility] Last Admin: 09/02/22 13:18 Dose: 30 mg Home Med (Fluticasone/Umeclidin/Vilanter [Trelegy Ellipta 100-62.5-25]) 1 puff IH DAILY [facility] Last Admin: 09/02/22 09:05 Dose: 1 puff Levofloxacin/Dextrose (Levaquin 750 Mg/150 Ml Ivpb (Premix)) 750 mg in 150 mls @ 100 mls/hr IV Q48H [facility]; Protocol Last Admin: 09/02/22 15:35 Dose: 150 mls L-Arginine/L-Glutamine/HMB (Florentino Packet) 1 pkt PO BID [facility] Last Admin: 09/02/22 21:41 Dose: 1 pkt Levalbuterol HCl (Levalbuterol 1.25 Mg/3 Ml Neb) 1.25 mg NEB [id number] PRN PRN Reason: SHORTNESS OF BREATH Last Admin: 08/31/22 19:20 Dose: 1.25 mg Nicotine (Nicotine 21 Mg/Pat) 21 mg TD DAILY [facility] Last Admin: 09/02/22 09:00 Dose: Not Given Nutritional Formula (Ensure Enlive 237 Ml Can) 237 ml PO BID [facility] Last Admin: 09/02/22 21:41 Dose: 237 ml Ondansetron HCl (Ondansetron 4 Mg/2 Ml Vial) 4 mg IV Q6HP PRN PRN Reason: NAUSEA / VOMITING Last Admin: 08/31/22 05:18 Dose: 4 mg Pantoprazole Sodium ([facility]oprazole 40mg Tablet) [facility] Protocol Last Admin: 09/03/22 06:00 Dose: 40 mg Prednisone (Prednisone 10 Mg Tab) 10 mg PO BID [facility] Last Admin: 09/02/22 21:36 Dose: 10 mg Sodium Chloride (Flush Normal Saline 10 Ml) 10 ml IV BID [facility] Last Admin: 09/02/22 21:41 Dose: 10 ml Sotalol HCl (Sotalol Hcl 80 Mg Tab) 80 mg PO BID [facility] Last Admin: 09/02/22 21:36 Dose: 80 mg Tramadol HCl (Tramadol Hcl 50 Mg Tab) 50 mg PO Q6H PRN PRN Reason: Pain scale 5-7 (Moderate) Last Admin: 09/02/22 11:22 Dose: 50 mg Microbiology Data (last 24 hrs): Microbiology 08/29/22 11:15 Blood - Blood Aerobic Blood Culture - Preliminary Staph Xylosus 08/29/22 11:15 Blood - Blood Anaerobic Blood Culture - Final Staph Xylosus 08/29/22 11:15 Blood - Blood Gram Stain - Final 08/29/22 11:30 Blood - Blood Aerobic Blood Culture - Preliminary Staph Xylosus 08/29/22 11:30 Blood - Blood Blood Culture Gram Stain - Final 08/29/22 11:30 Blood - Blood Anaerobic Blood Culture - Preliminary No growth in 24 hours. Assessment And Plan - Current Problems (Diagnosis) (1) Bacteremia Current Visit: Yes Status: Acute Plan: Cultures: 08/31 BCx2: Negative 08/29 BCx2: Staph Xylosus, Susceptible to Levofloxacin and Vancomycin Antibiotics: Had IV Vancomycin from 08/31 to 09/02 Current on IV Levofloxacin (from 08/29) Recommendations: Continue IV Levofloxacin for total of 14 days (from 08/31 to 09/13) PICC line placed 09/02 (2) Pneumonia Current Visit: Yes Status: Acute Plan: Cultures: 08/31 BCx2: Negative 08/29 BCx2: Staph Xylosus, Susceptible to Levofloxacin and Vancomycin Antibiotics: Had IV Vancomycin from 08/31 to 09/02 Current on IV Levofloxacin (from 08/29) Recommendations: Continue IV Levofloxacin for total of 14 days (from 08/31 to 09/13) Qualifiers: Pneumonia type: due to unspecified organism Laterality: bilateral (3) Leukocytosis Current Visit: Yes Status: Acute Plan: Most likely due to pneumonia/bacteremia WBC: 09/01: 23.4 09/02: 14.7, Trending down, 09/03: Not done - Plan - Bacteremia- The total course of IV antibiotics should be total of 14 days (from 08/31 to 09/13) - Community-acquired pneumonia - continue IV antibiotics for total of 14 days - Leukocytosis - Severe protein calorie malnutrition - Acute on chronic COPD exacerbation - History of atrial fibrillation - History of bleeding ulcer - Nicotine dependence - COPD - HLD - A. fib - HLD - Total abdominal hysterectomy ID will monitor the patient closely for signs of infection with fever and WBC trends Case has been discussed with Dr. Negron, N
[2022-09-03] MEDS: ENSURE ENLIVE 237 ML CAN PO SCH ×2 (09:00→22:15)
[2022-09-03] MEDS: JUVEN PACKET PO SCH ×2 (09:00→22:15)
[2022-09-03] MEDS: Fluticasone/Umeclidin/Vilanter [Trelegy Ellipta 100-62.5-25] Blst.W.Dev IH SCH (09:00)
[2022-09-03] MEDS: NICOTINE 21 MG/PAT TD SCH ×2 (09:00→10:00)
[2022-09-03] MEDS: SOTALOL HCL 80 MG TAB PO SCH ×2 (09:59→22:15)
[2022-09-03] MEDS: ENOXAPARIN 30 MG/0.3 ML SQ SCH (09:59)
[2022-09-03] MEDS: predniSONE 10 MG TAB PO SCH ×2 (09:59→22:15)
--- NOTE | 2022-09-03 11:01 | P.PN ---
Subjective Date of Service: 09/03/22 Primary Care Provider: Deep Chief Complaint: Pneumonia Patient denies any new complain. No issues overnight. No fever. Physical Examination - Vital Signs Temperature: 99.4 F Blood Pressure: 155/63 Pulse: 62 Respirations: 16 Pulse Ox (%): 95 - Studies Microbiology Data (last 24 hrs): 08/29/22 11:15 Blood - Blood Anaerobic Blood Culture - Final Staph Xylosus 08/29/22 11:15 Blood - Blood Gram Stain - Final 08/29/22 11:30 Blood - Blood Blood Culture Gram Stain - Final Assessment And Plan - Plan Physical Exam: Gen: NAD, awake and alert Neck: No JVD CV: regular rate & rhythm, no edema Pulm: Mild bibasilar Rales, adequate breath sounds bilaterally. Abd: soft, non-tender, non-distended Neuro: normal speech, moves all extremities Skin: No cyanosis, no rashes. vitals reviewed Problem List acute hypoxemic respiratory failure Sepsis secondary to Community-acquired pneumonia Acute on chronic COPD exacerbation History of atrial fibrillation History of bleeding ulcer Nicotine dependence Plan Leukocytosis has improved. 2 out of 4 blood culture bottles grew staph xylosus. Repeat blood culture shows no growth. Continue Levaquin. Infectious disease recommended 2 weeks of IV Levaquin. PICC line placed for outpatient antibiotic. continue steroids, nebs, inhalers for acute COPD Atrial fibrillation is stable. Continue sotalol. Patient is not anticoagulated. She has a history of bleeding ulcer. Continue oral Protonix Wean off oxygen as tolerated. Continue PT. Diet as tolerated. Code: full Dispo: Anticipating skilled rehab. Social service consulted for SNF placement.
[2022-09-03] MEDS: ATORVASTATIN 20 MG TAB PO SCH (22:15)
[2022-09-03] MEDS: TRAMADOL HCL 50 MG TAB PO PRN (22:21)
[2022-09-04 04:53] LABS: Absolute Lymphocytes (CBC) 0.8 K/uL (0.7-4.9); Hematocrit 29.1 % (36.0-45.0); Lymphocytes % 6.4 % (15.3-44.8); MCV 79.7 fL (80-100); MPV 8.2 fL (7.6-11.3); RBC Red Blood Cell Count 3.65 M/uL (3.86-4.86)
[2022-09-04 05:04] LABS: Potassium 4.7 mmol/L (3.5-5.1)
[2022-09-04 05:13] LABS: Phosphorus 2.1 mg/dL (2.5-4.9)
[2022-09-04] MEDS: PANTOPRAZOLE 40MG TABLET PO SCH (06:07)
[2022-09-04 06:20] LABS: Toxic Granulation PRESENT
[2022-09-04 06:21] LABS: Anisocytosis SLIGHT; Blood Morphology Comment NOTED (NOT SEEN); Platelet Estimate ADEQ; White Blood Cell Scan OK (OK)
[2022-09-04] MEDS: POTASS/SODIUM PHOSPHATE 1 PKT POWD.PACK PO SCH ×3 (08:00→13:57)
[2022-09-04] MEDS: NICOTINE 21 MG/PAT TD SCH (09:00)
[2022-09-04] MEDS: predniSONE 10 MG TAB PO SCH ×2 (09:21→20:46)
[2022-09-04] MEDS: ENSURE ENLIVE 237 ML CAN PO SCH ×2 (09:21→20:47)
[2022-09-04] MEDS: SOTALOL HCL 80 MG TAB PO SCH ×2 (09:21→20:46)
[2022-09-04] MEDS: Fluticasone/Umeclidin/Vilanter [Trelegy Ellipta 100-62.5-25] Blst.W.Dev IH SCH (09:21)
[2022-09-04] MEDS: JUVEN PACKET PO SCH ×2 (09:22→20:48)
[2022-09-04] MEDS: ENOXAPARIN 30 MG/0.3 ML SQ SCH (09:22)
--- NOTE | 2022-09-04 13:07 | P.PN ---
Subjective Date of Service: 09/04/22 Primary Care Provider: Deep Chief Complaint: Pneumonia Patient has no new complaint No issues overnight. No fever. Physical Examination - Vital Signs Temperature: 99.4 F Blood Pressure: 104/51 Pulse: 59 Respirations: 16 Pulse Ox (%): 95 - Studies Microbiology Data (last 24 hrs): 08/29/22 11:30 Blood - Blood Blood Culture Gram Stain - Final 08/29/22 11:30 Blood - Blood Anaerobic Blood Culture - Final No growth in 5 days. 08/29/22 11:15 Blood - Blood Anaerobic Blood Culture - Final Staph Xylosus 08/29/22 11:15 Blood - Blood Gram Stain - Final Assessment And Plan - Plan Physical Exam: Gen: NAD, awake and alert Neck: No JVD CV: regular rate & rhythm, no edema Pulm: Mild bibasilar Rales, adequate breath sounds bilaterally. Abd: soft, non-tender, non-distended Neuro: normal speech, moves all extremities Skin: No cyanosis, no rashes. vitals reviewed Problem List acute hypoxemic respiratory failure Sepsis secondary to Community-acquired pneumonia Acute on chronic COPD exacerbation History of atrial fibrillation History of bleeding ulcer Nicotine dependence Plan Leukocytosis almost resolved 2 out of 4 blood culture bottles grew staph xylosus. Repeat blood culture shows no growth. Continue Levaquin. Infectious disease recommended 2 weeks of IV Levaquin. PICC line placed for outpatient antibiotic. continue steroids, nebs, inhalers for acute COPD Atrial fibrillation is stable. Continue sotalol. Patient is not anticoagulat ed. She has a history of bleeding ulcer. Continue oral Protonix Patient is currently on 2 L oxygen by nasal cannula. Wean off oxygen as tolerated. Continue PT. Code: full Dispo: Awaiting SNF placement.
[2022-09-04] MEDS: ONDANSETRON 4 MG/2 ML VIAL IV PRN (13:55)
[2022-09-04] MEDS: Levofloxacin 750mg IV 750 MG/150 ML BAG IV SCH (15:14)
--- NOTE | 2022-09-04 15:20 | PN ---
Subjective: The patient is lying in bed. No new acute event. Chart reviewed. Objective: Vital Signs: Temperature 99, pulse 58, respirations 16, blood pressure 132/50. Lungs: Basal crackles. Heart: S1, S2. Regular. Abdomen: Soft, nontender. Bowel sounds present. Extremity: No edema. Laboratory Data: Shows WBC 13.2, down from 14.7; hemoglobin 9.2; platelets are 176. Chemistry shows BUN 37, creatinine 0.4, albumin level of 2.4. Micro data: Staph xylos and blood culture from 08/29, 08/31 are negative. Assessment And Plan: Bacteremia secondary to Staph xylos. Anemia of chronic disease. Leukocytosis, improving. Moderate protein-calorie malnourishment. Continue antibiotic for 2 weeks. Chronic obstructive pulmonary disease. Pneumonitis. The patient currently on Levaquin. See MARs for other medications. Continue current treatment. We will follow the patient as needed. NF/MODL Voice ID: [id number] Report ID: [id number]
[2022-09-04] MEDS: LEVALBUTEROL 1.25 MG/3 ML NEB NEB PRN (19:00)
[2022-09-04] MEDS ORDERED: LORazepam 2 MG/ML VIAL IV ONE (19:57)
[2022-09-04] MEDS: ATORVASTATIN 20 MG TAB PO SCH (20:46)
[2022-09-04 21:40] LABS: Arterial Blood Carboxyhemoglob 1.2 % (0-1.5); Blood Gas Oxyhemoglobin 92.6 % (94-97); Blood O2 Saturation 94.7 % (92-98.5)
[2022-09-04] MEDS ORDERED: RSI MEDICATION KIT IV ONE (23:18)
[2022-09-04 23:45] VITALS: BP 104/53; TEMP 97.5
--- NOTE | 2022-09-05 00:05 | P.DS ---
Admission Date: 08/29/22 Discharge Date: 09/05/22 Primary Care Provider: Deep Disposition: Discharge Condition: Reason for Admission: Pneumonia Consultations: Pulmonology- Dr. Shelley Infectious Disease- Dr. Negron - Problems (1) Pneumonia Current Visit: Yes Status: Acute Qualifiers: Pneumonia type: due to unspecified organism Laterality: bilateral Lung location: lower lobe of lung Qualified Code(s): J18.9 - Pneumonia, unspecified organism (2) Anemia Current Visit: Yes Status: Chronic Qualifiers: Anemia type: unspecified type Qualified Code(s): D64.9 - Anemia, unspecified (3) Atrial fibrillation Current Visit: Yes Status: Chronic Qualifiers: Atrial fibrillation type: paroxysmal Qualified Code(s): I48.0 - Paroxysmal atrial fibrillation (4) COPD (chronic obstructive pulmonary disease) Current Visit: Yes Status: Chronic Qualifiers: COPD type: unspecified COPD Qualified Code(s): J44.9 - Chronic obstructive pulmonary disease, unspecified Brief History of Present Illness: Patient is a 76-year-old female with past medical history of COPD, hypertension, and atrial fibrillation who is currently off her Xarelto due to recent bleeding ulcer. Patient presents to the emergency room with complaints of dyspnea and right flank pain. Patient states that her symptoms started yesterday evening. She reports right-sided sharp flank pain with 10 out of 10 severity with associated symptoms of shortness of breath. She said her symptoms are aggravated when she coughs. Patient's son stated that she received some ibuprofen and she slept all night. Patient said upon awakening this morning, her symptoms started all over again,and her son decided to bring her to the emergency room for further treatment. Per son, patient oxygenation was 85% at home. He administered an albuterol sulfate treatment with no improvement. Patient reports associated symptoms of vomiting, decreased appetite, and fatigue. On physical exam, patient had bilateral expiratory wheezing and was tachypneic. Patient also presents with left lower extremity +2 pitting edema, and right lower extremity +1 pitting edema. Patient states she noticed the edema a month ago. In the ED, she was treated with antibiotics, Xopenex, and steroids with little improvement. Her lab was significant for leukocytosis with a white count of 34.5. Her hemoglobin was stable at 12, no episodes of bleeding reported. CT thorax was positive for mild bilateral pneumonia. Patient will be admitted under care of Dr. Rodriguez. Pulmonology will be consulted for further evaluation and recommendations. Hospital Course: Patient was treated with vancomycin and levaquin. Vancomycin was later discontinued. Leukocytosis had almost resolved. 08/29 blood culture bottles grew staph xylosus. Repeat blood culture shows no growth. Infectious disease recommended 2 weeks of IV Levaquin. Steroids, nebs, inhalers were continued for acute COPD. Atrial fibrillation was stable on sotalol. Patient was not antic oagulated due to history of bleeding ulcer. oral Protonix continued. She was tolerating 2L oxygen by nasal cannula and awaiting SNF placement. The evening of 09/04, I received a call that patient was complaining of shortness of breath. She was saturating appropriately on 2L NC. Breathing treatment was administered by RT and ABG was also obtained that revealed very mild alkalosis. It seemed that her symptoms were secondary to anxiety so we gave her 0.5 mg IV ativan. Patient was able to relax and went to sleep. A few hours later, ICU noticed that patient's HR was in the 30s. RN went to assess patient and noticed that she was very slow to respond. Rapid response was called. Before I could arrive, code vianney was called as patient was unresponsive and pulseless. She was placed on the monitor and noted to be in ventricular fibrillation and was cardioverted with 150 J then 200 J and converted to PEA. While RT was bagging her, a large amount of coffee ground emesis spewed from her mouth. 600 cc were suctioned out. ER physician, Dr. Juan Jose Rodriguez, arrived on scene and intubated the patient successfully and visualized a large amount of blood in the trachea. I called the patient's son Ronald, who reaffirmed that patient is a full code and wanted everything done for her. ACLS was continued for 40 minutes. Patient fluctuated between PEA and asystole. She received a total of 6 rounds of epinephrine, 1 amp bicarb, 1 mg atropine, and 1 gram mag without any response. When the son arrived, he asked us to stop resuscitation. Time of was called by Dr. Juan Jose Rodriguez at 2341 on 09/04/2021. Vital Signs/Physical Exam: Temp Pulse Resp BP Pulse Ox 97.5 F 76 18 104/53 L 94 09/04/22 20:00 09/04/22 20:00 09/04/22 20:00 09/04/22 20:00 09/04/22 20:00 General: Unresponsive HEENT: Atraumatic Respiratory: Other (Absent breath sounds) Cardiovascular: Other (Absent heart sounds) Capillary refill: Other (Absent pulses) Laboratory Data at Discharge: WBC 13.20 K/uL (4.3-10.9) H 09/04/22 04:40 Hgb 9.2 g/dL (12.0-15.0) L 09/04/22 04:40 Hct 29.1 % (36.0-45.0) L 09/04/22 04:40 Plt Count 176 K/uL (152-406) 09/04/22 04:40 PT 12.3 SECONDS (9.5-12.5) 08/29/22 10:30 INR 1.12 08/29/22 10:30 Sodium 137 mmol/L (136-145) 09/04/22 04:40 Potassium 4.7 mmol/L (3.5-5.1) 09/04/22 04:40 BUN 37 mg/dL (7-18) H 09/04/22 04:40 Creatinine 0.47 mg/dL (0.55-1.02) L 09/04/22 04:40 Glucose 152 mg/dL (74-106) H 09/04/22 04:40 Phosphorus 2.1 mg/dL (2.5-4.9) L 09/04/22 04:40 Magnesium 2.0 mg/dL (1.6-2.4) 09/04/22 04:40 Total Bilirubin 0.9 mg/dL (0.2-1.0) 08/29/22 10:30 AST 14 U/L (15-37) L 08/29/22 10:30 ALT 14 U/L (13-56) 08/29/22 10:30 Alkaline Phosphatase 95 U/L (45-117) 08/29/22 10:30 Triglycerides 60 mg/dL (<150) 08/30/22 05:36 Cholesterol 108 mg/dL (<200) 08/30/22 05:36 HDL Cholesterol 62 mg/dL (40-60) H 08/30/22 05:36 Cholesterol/HDL Ratio 1.74 02/05/23 05:36 Home Medications: Atorvastatin Calcium [Lipitor] 20 mg PO BEDTIME 05/21/16 Sotalol HCl [Betapace*] 80 mg PO BID 30 Days #60 tab 03/26/22 Albuterol Neb [Proventil 0.083% Neb Soln] 1 amp NEB Q4H PRN 07/14/22 predniSONE [Prednisone] 10 tab PO DAILY 07/14/22 Fluticasone/Umeclidin/Vilanter [Trelegy Ellipta 100-62.5-25] 1 puff IH DAILY 08/29/22 Followup: Justice Adame MD [Primary Care Provider] - Time spent managing pt's care (in minutes): 60
--- NOTE | 2022-09-05 02:31 | P.PN ---
Date of Service: 09/04/22 Code vianney called to room 213, patient unresponsive, told was initially vfib, shocked, without ROSC. I intubated patient for respiratory failure, no meds, single attempt, 7.5 ETT, 23 at teeth, + large amount of bloody fluid in oropharynx and out of trachea, fluids suctioned. + color change on CO2 detector. ACLS x 40 min, son at bedside for end of CPR, made joint decision with son to stop as progressed to PEA and at one point asystole. TOD 2222.
[2022-09-05 02:44] VITALS: O2SAT 95
--- NOTE | 2022-09-08 17:44 | EKG ---
Test Date: 2022-08-29 Test Time: 10:03:01 Demolition Engineer: GRAHAM MEASUREMENT RESULTS: Intervals: Rate: 82 CO: 138 QRSD: 72 QT: 380 QTc: 443 [employer]: P: 47 CO: 138 QRS: 75 T: 65 INTERPRETIVE STATEMENTS: Normal sinus rhythm Possible Left atrial enlargement Borderline ECG Compared to ECG 07/18/2022 14:12:46 No significant changes Electronically Signed On 09-08-22 17:25:51 ORGAN TEACHER by Pete Salas
== END 2022-09-05 04:45 | disposition expired | DRG 871 ==
LOC: ER 09:38 → ERHOLD 12:50 → 2ND 14:23
PROVIDERS: ADMIT Hospitalist; ATTEND Internal Medicine
PROC: 02HV33Z Insertion of Infusion Device into Superior Vena Cava, Percutaneous Approach (ICD-10-PCS; principal; 2022-09-02)
DX: A41.2 Sepsis due to unspecified staphylococcus (principal); E43 Unspecified severe protein-calorie malnutrition; I50.31 Acute diastolic (congestive) heart failure; J18.9 Pneumonia, unspecified organism; J96.01 Acute respiratory failure with hypoxia; K92.2 Gastrointestinal hemorrhage, unspecified; J44.1 Chronic obstructive pulmonary disease with (acute) exacerbation; J44.0 Chronic obstructive pulmonary disease with (acute) lower respiratory infection; Z68.1 Body mass index [BMI] 19.9 or less, adult; D63.8 Anemia in other chronic diseases classified elsewhere; F41.9 Anxiety disorder, unspecified; I49.01 Ventricular fibrillation; I48.0 Paroxysmal atrial fibrillation; E78.5 Hyperlipidemia, unspecified; F17.200 Nicotine dependence, unspecified, uncomplicated; Z88.0 Allergy status to penicillin; Z79.82 Long term (current) use of aspirin; Z79.52 Long term (current) use of systemic steroids; Z91.048 Other nonmedicinal substance allergy status; Z79.899 Other long term (current) drug therapy; Z90.710 Acquired absence of both cervix and uterus; Z20.822 Contact with and (suspected) exposure to COVID-19
CPT/HCPCS: 0240U; 36415; 71045; 71250; 80048; 80061; 80076; 80202; 81001; 82805; 82947; 83605; 83735; 83880; 84100; 84145; 84484; 85025; 85027; 85610; 87040; 87077; 87186; 87205; 93005; 93970; 94640; 96365; 96367; 96375; 97110; 97116; 97161; 97165; 97530; 99285; J0690; J1650; J1940; J2405; J2550; J2920; J2930; J3370; J3475; J7030; J7050; J7512; J7613; J7614